=== PATIENT | male | born 1980 | race Caucasian/White ===

== ENCOUNTER 2018-12-24 00:47 | Emergency (ER) | payer MEDICAID, SELFPAY ==
[2018-12-24 00:48] VITALS: BP 150/92; PULSE 80; RESP 22; TEMP 36.7; O2SAT 100; BMI 33.4
--- NOTE | 2018-12-24 01:32 | ED.RN ---
PT SCREAMING AND YELLING. PT HYPERVENTILATING AND C/O CHEST PAIN. CALLED FOR EKG
--- NOTE | 2018-12-24 01:41 | EKG12_ITS ---
Test Reason : CP/ANXIETY Blood Pressure : / mmHG Vent. Rate : 087 BPM Atrial Rate : 087 BPM P-R Int : 132 ms QRS Dur : 098 ms QT Int : 392 ms P-R-T Axes : 060 050 044 degrees QTc Int : 471 ms Normal sinus rhythm Normal ECG Confirmed by JEFFERSON ALVARADO ([id number]), mapping editor ELICEO TORREZ ([id number] on 12/26/2018 4:28:40 PM Referred By: CINTHIA Confirmed By:JEFFERSON ALVARADO
[2018-12-24] MEDS: LORazepam 2 MG/ML Syringe 1 MG IM (02:08)
--- NOTE | 2018-12-24 03:36 | ED.VIS.GEN ---
History of Present Illness Chief Complaint: Anxiety Informant: Patient Narrative: Patient states he is having a panic attack. He has had these before. Tonight, he states that he tried methamphetamine, triggering another one. He is having palpitations, feeling very anxious, no chest pain or shortness of breath or other symptoms. He does not feel suicidal. - Past Medical History (1) Panic disorder Status: Chronic (2) Depression Status: Chronic Past Medical History - Allergies and Home Meds Allergies/Adverse Reactions: Allergies No Known Allergies Allergy (Verified 12/24/18 00:48) Primary Care Physician: Tristan Perdomo MD [Primary Care Provider] - Smoking Status: Current some day smoker Drugs: - - Methamphetamine Review of Systems General: Denies: Chills, Fever Eyes: Denies: Visual changes - bilaterally, Diplopia Cardiovascular: Reports: Palpitations, Heart racing. Denies: Chest pain Respiratory: Denies: Dyspnea, Cough Gastrointestinal: Denies: Abdominal pain, Nausea, Vomiting Musculoskeletal: Denies: Swelling, Extremity Pain Psych: Reports: Anxiety. Denies: Suicidal thoughts, Suicidal ideations Physical Exam Vital Signs/Narrative: Vital Signs Temp Pulse Resp BP Pulse Ox 12/24/18 00:48 98.1 F 80 22 H 150/92 H 100 Inital Vital Signs reviewed: Yes General: Well nourished, Well developed, No Acute Distress Head: Normocephalic, Atraumatic Eyes: Perrl, EOMI Neck: Supple, Nontender Cardiovascular: Regular rate, Regular rhythm, No murmurs Respiratory: No distress, CTA bilaterally, Chest nontender Abdomen: Soft, Nontender, Nondistended, Normal bowel sounds Skin: Normal color, No rash, No Trauma Neurological: Alert, Oriented x3, Cranial nerves II-XII grossly intact, Normal Strength, Normal Sensation Psychological: Agitated - And very anxious. Tearful at times. Diagnostic/Tx/Re-eval - Rhythm Strip Rhythm Strip: Sinus Rhythm Rate: 85 Ectopy: None - EKG Initial EKG Interpretation: Sinus Rhythm, No Acute Injury Pattern - Medical Decision Making Patient was treated with Ativan 1 mg IM. On reevaluation he feels much better. He was able to sleep comfortably, easily arousable. He is regretful about doing methamphetamine. Advised to abstain from it, especially with a history of panic disorder. He is agreeable. Discharged in stable improved condition. ED Disposition - Plan for ED Patient: Disposition: Home or Assisted Living Diagnosis: Panic attack, Methamphetamine abuse Instructions: ED Panic Attack Referrals: Tristan Perdomo MD [Primary Care Provider] - 3-5 Days if not improving
[2018-12-24 04:21] VITALS: PULSE 87; RESP 20; O2SAT 99
--- NOTE | 2018-12-24 04:22 | ED.RN ---
THIS NURSE REVIEWED D/C INSTRUCTIONS WITH PT. PT VERBALIZED UNDERSTANDING OF INSTRUCTIONS. PT DENIES FURTHER NEEDS OR QUESTIONS AT THIS TIME. PT AMBULATES FROM DEPARTMENT ON OWN WITHOUT ASSISTANCE FROM STAFF
== END 2018-12-24 04:23 | disposition home or self-care (01) ==
PROVIDERS: Emergency Provider Emergency Medicine; Family Provider Family Medicine; PCP Family Medicine
DX: F41.0 Panic disorder [episodic paroxysmal anxiety] (principal); F15.10 Other stimulant abuse, uncomplicated; F32.9 Major depressive disorder, single episode, unspecified; F17.200 Nicotine dependence, unspecified, uncomplicated; Z79.899 Other long term (current) drug therapy
CPT/HCPCS: 93005; 96372; 99284

== ENCOUNTER 2019-07-31 11:00 | Emergency (ER) | payer MEDICAID, SELFPAY ==
[2019-07-31 11:01] VITALS: BP 132/73; PULSE 86; RESP 22; TEMP 36.6; O2SAT 97; BMI 28.7
--- NOTE | 2019-07-31 11:22 | EKG12_ITS ---
Test Reason : CP Blood Pressure : / mmHG Vent. Rate : 080 BPM Atrial Rate : 080 BPM P-R Int : 148 ms QRS Dur : 098 ms QT Int : 380 ms P-R-T Axes : 030 048 032 degrees QTc Int : 438 ms Normal sinus rhythm Normal ECG Confirmed by VALERIA LANDRUM, LUIS ([id number]), image editor ARANZA HIGGINBOTHAM ([id number]) on 08/04/2019 10:28:52 AM Referred By: АЛЕКСАНДР/NEPTALI Confirmed By:LUIS SHAW MD
--- NOTE | 2019-07-31 11:23 | RAD_ITS ---
STUDY: X-RAY CHEST REASON FOR EXAM: Male, 39 years old. Palpitations. TECHNIQUE: Single AP portable view of the chest. COMPARISON: None. FINDINGS: EKG electrodes are seen. The lungs are clear and expanded. There is no demonstrated pleural abnormality. Normal size heart. Normal mediastinum and nika. Normal visualized pulmonary arteries. Normal visualized aortic arch and descending thoracic aorta. Normal visualized thoracic spine. Normal visualized ribs, clavicles, and shoulders. There is no demonstrated abnormality of the visualized soft tissue structures of the upper abdomen. RAD/Chest 1 View (Portable) IMPRESSION: Normal x-ray examination of the chest. Electronically Signed: Carlin Santos, at 11:43 EDT , Service support ,
[2019-07-31 11:29] LABS: Absolute Lymphocyte Count 1.27 X10^3/uL (0.83-4.51); Absolute Neutrophil Count 5.2 X10^3/uL (2.0-7.7); Basophil# 0.04 X10^3/uL; Basophil% 0.5 % (0-1); Eosinophil# 0.07 X10^3/uL; Eosinophils% 0.9 % (0-5); Hematocrit 45.1 % (40-54); Hemoglobin 14.9 g/dL (13.0-16.5); Lymphocyte # 1.27 X10^3/ul (4.0); Lymphocyte % 16.9 % (19-41); Mean Corpuscular Hgb 31.1 pg (27.0-32.0); Mean Corpuscular Volume 94.2 fL (80-94); Mean Platelet Vol. 9.2 fl (6.2-12.0); Monocyte# 0.86 X10^3/uL; Monocyte% 11.5 % (0-10); NRBC Flagged by Analyzer 0 % (0-5); Neutrophil # 5.23 X10^3/uL (2.7-7.7); Neutrophil % 69.8 % (47-70); Platelet Count 269 K/mm3 (150-450); RBC Distribution Width CV 12.4 % (11.6-14.6); RBC Distribution Width SD 43.3 fl (35.1-43.9); Red Blood Count 4.79 M/mm3 (4.6-6.2); White Blood Count 7.5 K/mm3 (4.4-11.0)
[2019-07-31 11:31] VITALS: O2SAT 99
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
[2019-07-31 11:53] LABS: Anion Gap 5 (5-15); BUN 16 mg/dL (7-18); BUN/Creat Ratio 14.4 RATIO (10-20); Calcium,Total 9.3 mg/dL (8.5-10.1); Chloride 106 mmol/L (98-107); Creatinine, Serum 1.11 mg/dL (0.70-1.30); EST Glomerular Filtration Rate 78 mL/min (>60); Est Glom Filt Rate - Afr Amer 94 mL/min (>60); Estimated Creatinine Clearance 90.43 ml/min; Glucose 75 mg/dL (74-106); Potassium 3.7 mmol/L (3.5-5.1); Sodium Level 141 mmol/L (136-145); Thyroid Stim Hormone (TSH) 4.03 uIU/mL (0.358-3.74)
--- NOTE | 2019-07-31 12:17 | ED.DEP ---
ED Disposition - Plan for ED Patient: Instructions: Palpitations Referrals: Tristan Perdomo MD [Primary Care Provider] - As soon as possible Additional Instructions: Your primary care physician. They can refer to your equipment maintenance superintendent as needed.
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
== END 2019-07-31 13:03 | disposition home or self-care (01) ==
LOC: ED 11:35
PROVIDERS: Emergency Provider Emergency Medicine; Family Provider Family Medicine; PCP Family Medicine
DX: R00.2 Palpitations (principal); F32.9 Major depressive disorder, single episode, unspecified; F41.9 Anxiety disorder, unspecified; Z79.899 Other long term (current) drug therapy; Z87.891 Personal history of nicotine dependence
CPT/HCPCS: 71045; 80048; 84443; 84484; 85025; 93005; 99284; A4216

== ENCOUNTER 2019-07-31 14:37 | Emergency (ER) | payer MEDICAID, SELFPAY ==
[2019-07-31 11:01] VITALS: BMI 28.7
[2019-07-31 14:38] VITALS: BP 116/76; PULSE 82; RESP 16; TEMP 36.4; O2SAT 98; BMI 29.5
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
--- NOTE | 2019-07-31 15:38 | CM.ED ---
Social Work Patient returning to ED, stating I am lightheaded, I am going to pass out. Dr. Cruz to see patient. No changes. Patient again reminded about [facility]. Patient walking into the ED and stating to be able to walk. Patient stating I might not go to the [facility]. This social science manager noting that it is patient choice on where patient goes but that patient is aware of resource for housing as patient is stating to be unable to return to patient fathers home. Patient voicing frustration but willing to leave. RN and Dr. Anthony hernandez. Alyssa Collins COMMISSARY AGENT, SALVAGE WORKER
== END 2019-07-31 15:40 | disposition home or self-care (01) ==
LOC: ED 15:26
PROVIDERS: Emergency Provider Emergency Medicine; Family Provider Family Medicine; PCP Family Medicine
DX: R00.2 Palpitations (principal); Z76.5 Malingerer [conscious simulation]; F32.9 Major depressive disorder, single episode, unspecified; F41.9 Anxiety disorder, unspecified; Z79.899 Other long term (current) drug therapy; Z87.891 Personal history of nicotine dependence
CPT/HCPCS: 71045; 80048; 84443; 84484; 85025; 93005; 99284; A4216

== ENCOUNTER 2020-04-01 16:06 | Emergency (ER) | payer SELFPAY ==
[2020-04-01 16:07] VITALS: BP 163/114; PULSE 114; RESP 18; TEMP 36.6; O2SAT 96; BMI 28.0
--- NOTE | 2020-04-01 16:17 | ED.RN ---
UPON ARRIVAL TO [facility] PT STATES I HAVE NEVER BEEN HERE. ASK PT SSN. NO RESULTS. TYPE IN BIRTHDAY. RETRIEVE NAME AND ADDRESS. PT AGREES IT IS HIM. PT ANGRY AND MAKING COMMENTS IN TRIAGE. PT STATES THIS [facility]UCKING HOSPITAL IS [facility]. WHEN ASKED WHY, PT STATES YOUR ALL FUCKING [facility] ABOUT THIS [facility]. ATTEMPTED TO REASSURE PT. PT THEN BEGINS MUTTERING TO THE ONEAL IN TRIAGE. AGGRESSIVELY NOT ANSWERING QUESTIONS. WHEN PT ASKED ABOUT THOUGHTS OF HARMING HIMSELF. PT STOPPED AND HESITATED BEFORE ANSWERING NO. SAME WITH QUESTION REGARDING HURTING OTHERS. PT REMAINS AGREESIVE THRUOUT TRIAGE PROCESS. SECURITY AWARE AND REMAIN IN SIGHT. PT TO ROOM 5. DISTRIBUTION FIELD ENGINEERMICHELLE SUMNER
[2020-04-01 16:22] VITALS: O2SAT 99
--- NOTE | 2020-04-01 16:24 | EKG12_ITS ---
Test Reason : CP Blood Pressure : / mmHG Vent. Rate : 093 BPM Atrial Rate : 093 BPM P-R Int : 142 ms QRS Dur : 096 ms QT Int : 376 ms P-R-T Axes : 048 018 034 degrees QTc Int : 467 ms Normal sinus rhythm Normal ECG Confirmed by JEFFERSON ALVARADO ([id number]), special service officer BECKY MILLER ([id number]) on 04/09/2020 8:15:27 AM Referred By: CARROLL Confirmed By:JEFFERSON ALVARADO
--- NOTE | 2020-04-01 16:38 | NURSING ---
NO OLD EKGS
--- NOTE | 2020-04-01 16:38 | ED.VIS.GEN ---
History of Present Illness Chief Complaint: Shortness of Breath Informant: Patient Onset: Days Current Severity: Mild Maximum Severity: Mild Narrative: Patient presents with shortness of breath for the past couple of days. He states that he needs a scan around his heart. He describes having what sounds and an echocardiogram as a child for a possible hole in his heart. He is requesting this test to be done again. He reports increased shortness of breath with exertion. He will get some chest pressure with exertion that improves with rest. When I explained to the patient that we are not able to get a echocardiogram in the emergency room and he would need to follow-up with cardiology, he stated that if he does not get this figured out he might go kill himself. At this time he denies any prior attempts to hurt himself. He has no specific plan. - Past Medical History (1) Hypothyroid Status: Chronic (2) Panic disorder Status: Chronic (3) Depression Status: Chronic Past Medical History - Allergies and Home Meds Allergies/Adverse Reactions: Allergies No Known Allergies Allergy (Verified 04/01/20 16:09) Primary Care Physician: Tristan Perdomo MD [Primary Care Provider] - Prior records reviewed: Yes Smoking Status: Never smoker Review of Systems General: Denies: Chills, Fever Eyes: Denies: Visual changes - bilaterally ENT: Denies: Bilateral ear pain Cardiovascular: Reports: Chest pain. Denies: Palpitations Respiratory: Reports: Dyspnea. Denies: Cough, Sputum Gastrointestinal: Denies: Abdominal pain, Nausea, Vomiting, Diarrhea Genitourinary: Denies: Dysuria Musculoskeletal: Denies: Extremity Pain Skin: Denies: Rash Neurological: Denies: Headache Hematologic: Denies: Easy bruising, Easy bleeding Allergy: Denies: Uticaria Physical Exam Vital Signs/Narrative: Vital Signs Temp Pulse Resp BP Pulse Ox 04/01/20 16:07 97.9 F 114 H 18 163/114 H 96 Inital Vital Signs reviewed: Yes General: Well nourished, Well developed Head: Normocephalic ENT: Moist mucous membranes Neck: Supple Cardiovascular: Regular rate, Regular rhythm, - - Mild peristernal tenderness to palpation. No crepitus. Respiratory: No distress, CTA bilaterally Abdomen: Soft, Nontender Skin: Normal color Neurological: Alert, Oriented x3 Psychological: Normal affect Diagnostic/Tx/Re-eval Impressions Chest X-Ray 04/01/20 16:53 IMPRESSION: Normal x-ray examination of the chest. Electronically Signed: Tristan Harden MD at 17:13 EDT Tel , Service support , 04/01/20 16:53 Chest 1 View (Portable) [RAD] Stat Laboratory Results 04/01/20 04/01/20 04/01/20 16:40 16:40 16:40 WBC 7.9 RBC 4.50 L Hgb 13.6 Hct 41.6 MCV 92.4 MCH 30.2 MCHC 32.7 RDW Std Deviation 42.5 RDW Coeff of Anastacio 12.5 Plt Count 249 MPV 10.3 Immature Gran % (Auto) 0.400 Neut % (Auto) 79.1 H Lymph % (Auto) 12.1 L [place] % (Auto) 7.3 Eos % (Auto) 0.8 Baso % (Auto) 0.3 Absolute Neuts (auto) 6.3 Absolute Lymphs (auto) 0.96 Nucleated RBC % 0 Sodium 139 Potassium 3.3 L Chloride 104 Carbon Dioxide 27.0 Anion Gap 8 BUN 17 Creatinine 1.10 Estim Creat Clear Calc 88.38 Est GFR (MDRD) Af Amer 95 Est GFR (MDRD) Non-Af 78 BUN/Creatinine Ratio 15.5 Glucose 101 Calcium 9.1 Total Bilirubin 0.90 Direct Bilirubin 0.25 AST 24 ALT 50 Alkaline Phosphatase 68 Troponin I < 0.015 Total Protein 7.3 Albumin 4.0 Globulin 3.3 Urine Opiates Screen Urine Methadone Screen Ur Barbiturates Screen Ur Phencyclidine Scrn Ur Amphetamines Screen U Methamphetamin-MDMA U Benzodiazepines Scrn Urine Cocaine Screen U Cannabinoids Screen Ur Drug Screen Comment Ethyl Alcohol < 3.0 04/01/20 16:45 WBC RBC Hgb Hct MCV MCH MCHC RDW Std Deviation RDW Coeff of Anastacio Plt Count MPV Immature Gran % (Auto) Neut % (Auto) Lymph % (Auto) Independence % (Auto) Eos % (Auto) Baso % (Auto) Absolute Neuts (auto) Absolute Lymphs (auto) Nucleated RBC % Sodium Potassium Chloride Carbon Dioxide Anion Gap BUN Creatinine Estim Creat Clear Calc Est GFR (MDRD) Af Amer Est GFR (MDRD) Non-Af BUN/Creatinine Ratio Glucose Calcium Total Bilirubin Direct Bilirubin AST ALT Alkaline Phosphatase Troponin I Total Protein Albumin Globulin Urine Opiates Screen NEGATIVE Urine Methadone Screen NEGATIVE Ur Barbiturates Screen NEGATIVE Ur Phencyclidine Scrn NEGATIVE Ur Amphetamines Screen NEGATIVE U Methamphetamin-MDMA NEGATIVE U Benzodiazepines Scrn NEGATIVE Urine Cocaine Screen NEGATIVE U Cannabinoids Screen NEGATIVE Ur Drug Screen Comment Ethyl Alcohol - EKG Initial EKG Interpretation: Sinus Rhythm - Sinus at 93 with no acute ischemia. - Medical Decision Making Patient was given p.o. potassium replacement. On repeat evaluation he is resting comfortably. We discussed his test results and need for outpatient follow-up in order to obtain an echocardiogram as it is not available or emergent at this time. Patient states that he continues to feel suicidal. He denies a specific plan but states multiple times that he will kill himself if he leaves here and is not sent somewhere to get help. Amalia from the counseling center spoke with the patient on the phone. He would not contract for safety with her. She is working on placement at this time. I filled out a pink slip. ED Disposition - Plan for ED Patient: Disposition: Psychiatric Hospital or Unit Diagnosis: Suicidal ideation, Atypical chest pain Referrals: Tristan Perdomo MD [Primary Care Provider] -
--- NOTE | 2020-04-01 16:53 | RAD_ITS ---
STUDY: X-RAY CHEST REASON FOR EXAM: Male, 39 years old. SOB FOR SEVERAL DAYS TECHNIQUE: Single frontal view of the chest. COMPARISON: 07/31/2019 FINDINGS: The lungs are clear and expanded. There is no demonstrated pleural abnormality. Normal size heart. Normal mediastinum and nika. Normal visualized pulmonary arteries. Normal visualized aortic arch and descending thoracic aorta. Normal visualized thoracic spine. Normal visualized ribs, clavicles, and shoulders. There is no demonstrated abnormality of the visualized soft tissue structures of the upper abdomen. RAD/Chest 1 View (Portable) IMPRESSION: Normal x-ray examination of the chest. Electronically Signed: Tristan Harden MD at 17:13 EDT Tel , Service support ,
[2020-04-01 17:05] LABS: Absolute Lymphocyte Count 0.96 X10^3/uL (0.83-4.51); Absolute Neutrophil Count 6.3 X10^3/uL (2.0-7.7); Basophil# 0.02 X10^3/uL; Basophil% 0.3 % (0-1); Eosinophil# 0.06 X10^3/uL; Eosinophils% 0.8 % (0-5); Hematocrit 41.6 % (40-54); Hemoglobin 13.6 g/dL (13.0-16.5); Lymphocyte # 0.96 X10^3/ul (4.0); Lymphocyte % 12.1 % (19-41); Mean Corp Hgb Conc 32.7 g/dL (32-36); Mean Corpuscular Hgb 30.2 pg (27.0-32.0); Mean Corpuscular Volume 92.4 fL (80-94); Mean Platelet Vol. 10.3 fl (6.2-12.0); Monocyte# 0.58 X10^3/uL; Monocyte% 7.3 % (0-10); NRBC Flagged by Analyzer 0 % (0-5); Neutrophil # 6.29 X10^3/uL (2.7-7.7); Neutrophil % 79.1 % (47-70); Platelet Count 249 K/mm3 (150-450); RBC Distribution Width CV 12.5 % (11.6-14.6); RBC Distribution Width SD 42.5 fl (35.1-43.9); White Blood Count 7.9 K/mm3 (4.4-11.0)
[2020-04-01 17:28] LABS: AST(SGOT) 24 U/L (15-37); Alanine Aminotransfer ALT/SGPT 50 U/L (16-61); Alkaline Phosphatase 68 U/L (45-117); Anion Gap 8 (5-15); BUN 17 mg/dL (7-18); BUN/Creat Ratio 15.5 RATIO (10-20); Bilirubin, Direct 0.25 mg/dL (0.00-0.30); Calcium,Total 9.1 mg/dL (8.5-10.1); Chloride 104 mmol/L (98-107); EST Glomerular Filtration Rate 78 mL/min (>60); Est Glom Filt Rate - Afr Amer 95 mL/min (>60); Estimated Creatinine Clearance 88.38 ml/min; Globulin 3.3 g/dL (2.2-4.2); Glucose 101 mg/dL (74-106); Potassium 3.3 mmol/L (3.5-5.1); Protein, Total 7.3 g/dL (6.4-8.2); Sodium Level 139 mmol/L (136-145)
[2020-04-01 17:38] LABS: Alcohol, Blood (Medical)-Serum < 3.0 mg/dL
[2020-04-01 17:39] LABS: Amphetamine Urine VISTA NEGATIVE (<1000 ng/mL); Barbiturate Urine VISTA NEGATIVE (< 200 ng/mL); Benzodiazepine Urine VISTA NEGATIVE (< 200 ng/mL); Cocaine Urine VISTA NEGATIVE (< 300 ng/mL); Ecstacy Urine VISTA NEGATIVE (< 500 ng/mL); Methadone Urine VISTA NEGATIVE (< 300 ng/mL); PCP Urine VISTA NEGATIVE (< 25 ng/mL); THC Urine VISTA NEGATIVE (< 50 ng/mL); Vista UDS pH Range 6
[2020-04-01 18:06] VITALS: BP 161/97; PULSE 91; RESP 19; O2SAT 99
--- NOTE | 2020-04-01 18:25 | ED.RN ---
PT C/O CHEST PAIN FROM THE POTASSIUM PILLS THAT ARE SWELLING UP AND GETTING BIGGER. DR TIWARI NOTIFIED. PER DR TIWARI, GIVEN SOME WATER AND CRACKERS TO HELP WITH PAIN FROM PILLS
--- NOTE | 2020-04-01 18:54 | ED.RN ---
CALLED [facility] TO SEE THIS PT PER REQUEST OF DR TIWARI, REPORT FAXED TO THEIR OFFICE
[2020-04-01 20:22] VITALS: RESP 16
[2020-04-01 22:06] VITALS: BP 130/91; PULSE 71; O2SAT 98
--- NOTE | 2020-04-01 22:55 | ED.RN ---
Cong from [facility] calls requesting a TSH level, EKG and medlist be faxed.
[2020-04-01 23:24] VITALS: RESP 16
[2020-04-02] VITALS (12 sets, daily range): BP systolic 108–136; BP diastolic 72–95; PULSE 65–89; RESP 14–16; O2SAT 96–99
--- NOTE | 2020-04-02 09:04 | NURSING ---
CALLED [facility] FOR AN UPDATE ON PATIENT. [facility] IS WITH A PATIENT AND WILL CALL US WHEN FINISHED.
--- NOTE | 2020-04-02 09:39 | NURSING ---
PER ARNIE ALAN, PATIENT WILL BE ABLE TO GO TO [facility] TODAY. THEY ARE WAITING ON DISCHARGES
--- NOTE | 2020-04-02 14:26 | NURSING ---
natalie, [facility], called. patient still has no bed
[2020-04-02] MEDS: Citalopram 40 MG TABLET PO (14:46)
[2020-04-02] MEDS: busPIRone 15 MG TABLET PO (14:46)
[2020-04-02] MEDS: Levothyroxine 112 MCG Tablet PO (14:46)
[2020-04-02] MEDS: Lisinopril 20 MG Tablet PO (14:46)
[2020-04-02] MEDS: Atenolol 50 MG Tablet PO (14:47)
--- NOTE | 2020-04-02 16:21 | NURSING ---
PATIENT ACCEPTED AT [facility]. CALLED [facility], TALKED TO [facility], FOR THEM TO ARRANGE TRANSPORT
== END 2020-04-02 17:10 ==
PROVIDERS: Emergency Medicine; Emergency Provider Emergency Medicine; PCP Family Medicine
DX: R07.89 Other chest pain (principal); F32.9 Major depressive disorder, single episode, unspecified; R45.851 Suicidal ideations; F41.0 Panic disorder [episodic paroxysmal anxiety]; E03.9 Hypothyroidism, unspecified; Z79.899 Other long term (current) drug therapy
CPT/HCPCS: 71045; 80048; 80076; 80307; 80320; 84443; 84484; 85025; 93005; 99285; G0480

== ENCOUNTER 2020-05-17 21:28 | Emergency (ER) | payer SELFPAY ==
[2020-05-17 21:28] VITALS: BP 113/97; PULSE 123; RESP 24; TEMP 36.7; O2SAT 94; BMI 29.5
--- NOTE | 2020-05-17 21:42 | EKG12_ITS ---
Test Reason : GEN ILL Blood Pressure : / mmHG Vent. Rate : 106 BPM Atrial Rate : 106 BPM P-R Int : 152 ms QRS Dur : 098 ms QT Int : 338 ms P-R-T Axes : 035 037 006 degrees QTc Int : 448 ms Sinus tachycardia Otherwise normal ECG Confirmed by RAPHAEL LANDRUM, JOSÉ MIGUEL ([id number]), newspaper photo editor BECKY MILLER ([id number]) on 05/21/2020 10:45:01 AM Referred By: LUCIAN Confirmed By:JOSÉ MIGUEL LIM MD
--- NOTE | 2020-05-17 21:55 | RAD_ITS ---
HISTORY: CHEST PAIN. PATIENT STATES HX OF ENLARGED HEART. ADDITIONAL HISTORY: None provided. COMPARISON: 04/01/2020 EXAMINATION/TECHNIQUE: XR Chest 2 Views Number of images including paperwork: 2 FINDINGS: LUNGS AND PLEURA: Low lung volumes. No consolidation, mass or pleural effusion. CARDIAC SILHOUETTE: Unremarkable. MEDIASTINUM AND TIMOTHY: Unremarkable. UPPER ABDOMEN: Unremarkable. SKELETON AND SOFT TISSUES: No acute findings. OTHER DEVICES AND HARDWARE: None. RAD/Chest PA and Lateral IMPRESSION: Long line was without definite acute abnormality. at [id number] Reported and signed by: Brunilda Morrell MD Electronically Signed: Brunilda Morrell MD at 22:15 EDT Tel , Service support ,
--- NOTE | 2020-05-17 22:18 | ED.VIS.GEN ---
History of Present Illness Chief Complaint: General Illness Detail of Chief Complaint: Cardiomegaly, vague chest pain Informant: Patient Onset: Month(s) - Approximately 3 weeks Context: Sudden Onset Timing: Continuous Quality: Anterior chest discomfort Location: Anterior chest Current Severity: Mild Maximum Severity: Moderate Worsened by: Nothing Relieved by: Nothing Associated Symptoms: No associated symptoms or radiation Narrative: Patient is a 39-year-old male who was seen approximate 3 months ago and told his heart was enlarged. He did not follow-up. He does have history of depression anxiety. He also has history of hypercholesterolemia. There is family history of heart problems. He cannot be more specific. He denies history of GERD, peptic ulcer disease, black or maroon stool. He denies infectious or URI symptoms. He denies history of trauma. He denies intolerance to greasy or fried foods. He denies leg pain, swelling discoloration. He denies history of VTE. Prior similar symptoms: Yes Recent Illness/Hospitalization: No - Past Medical History (1) Depression Status: Chronic (2) Hypothyroid Status: Chronic (3) Panic disorder Status: Chronic Past Medical History - Allergies and Home Meds Allergies/Adverse Reactions: Allergies No Known Allergies Allergy (Verified 05/17/20 21:31) Primary Care Physician: Tristan Perdomo MD [Primary Care Provider] - Prior records reviewed: Yes Lives: With Family - He lives with his father. Smoking Status: Never smoker Alcohol: None Drugs: None Review of Systems General: Denies: Chills, Fever, Malaise, Sweats Eyes: Denies: Visual changes - bilaterally, Blurred Vision - bilaterally ENT: Denies: Bilateral ear pain, Rhinorrhea, Sore throat Cardiovascular: Reports: Chest pain. Denies: Palpitations, Heart racing Respiratory: Denies: Dyspnea, Cough, Dyspnea on exertion Gastrointestinal: Denies: Abdominal pain, Nausea, Vomiting, Diarrhea, Melena, Hematochezia Genitourinary: Denies: Dysuria, Hematuria, Frequency Musculoskeletal: Denies: Myalgias, Arthralgias, Neck pain, Back pain, Swelling, Extremity Pain Skin: Denies: Rash, Wounds Neurological: Denies: Headache, Weakness, Numbness Psych: Reports: Anxiety. Denies: Suicidal thoughts Hematologic: Denies: Easy bruising, Easy bleeding Physical Exam Vital Signs/Narrative: Vital Signs Temp Pulse Resp BP Pulse Ox 05/17/20 21:28 98.1 F 123 H 24 H 113/97 H 94 Inital Vital Signs reviewed: Yes General: Well nourished, Well developed, No Acute Distress Head: Normocephalic, Atraumatic Eyes: Perrl, EOMI ENT: Moist mucous membranes, No rhinorrhea Neck: Supple, Nontender Cardiovascular: Regular rate, Regular rhythm, No murmurs, Normal S1, Normal S2 Respiratory: No distress, CTA bilaterally, Chest nontender Abdomen: Soft, Nontender, Nondistended, Normal bowel sounds, No masses Back: Nontender, Normal Inspection. Negative for: CVA tenderness Extremities: Nontender, No edema, - - There is no asymmetry, swelling, discoloration, leg vein distention, palpable cords or tenderness along the distribution of the deep venous system. Skin: Normal color, No rash, No Trauma. Negative for: Cyanosis, Diaphoresis, Jaundice Neurological: Alert, Oriented x3, Cranial nerves II-XII grossly intact, Normal Strength, Normal Sensation Psychological: Depressed Diagnostic/Tx/Re-eval Chest X-Ray - ED: 2 View, Read by ED Physician, Normal, Heart, Lungs, Mediastinum, Bony Structures, - - Recent x-ray April 01, 2020. There is no evidence of cardiomegaly. The film performed today is overpenetrated in comparison. Impressions Chest X-Ray 05/17/20 21:55 IMPRESSION: Long line was without definite acute abnormality. at 2215 Reported and signed by: Brunilda Morrell MD Electronically Signed: Brunilda Morrell MD at 22:15 EDT Tel , Service support , 05/17/20 21:55 Chest PA and Lateral [RAD] Stat Laboratory Results 05/17/20 05/17/20 05/17/20 22:20 22:20 22:40 WBC Cancelled 13.8 H Corrected WBC Cancelled RBC Cancelled 4.18 L Hgb Cancelled 12.7 L Hct Cancelled 38.0 L MCV Cancelled 90.9 MCH Cancelled 30.4 MCHC Cancelled 33.4 RDW Std Deviation Cancelled 38.8 RDW Coeff of Anastacio Cancelled 11.5 L Plt Count Cancelled 210 MPV Cancelled 9.5 Immature Gran % (Auto) Cancelled 0.500 Neut % (Auto) Cancelled 85.9 H Lymph % (Auto) Cancelled 6.9 L [place] % (Auto) Cancelled 6.1 Eos % (Auto) Cancelled 0.4 Baso % (Auto) Cancelled 0.2 Absolute Neuts (auto) Cancelled 11.9 H Absolute Lymphs (auto) Cancelled 0.95 Total Counted Cancelled Neutrophils % (Manual) Cancelled Band Neutrophils % Cancelled Lymphocytes % (Manual) Cancelled Monocytes % (Manual) Cancelled Eosinophils % (Manual) Cancelled Basophils % (Manual) Cancelled Metamyelocytes % Cancelled Myelocytes % Cancelled Promyelocytes % Cancelled Blast Cells % Cancelled Plasma Cell % (Manual) Cancelled Other Cells % Cancelled Nucleated RBC % Cancelled 0 Nucleated RBCs/100 WBC Cancelled Differential Comment Cancelled Diff Path Review Cancelled Hypersegmented Neuts Cancelled Atypical Lymphocytes Cancelled Reactive Lymphocytes Cancelled Smudge Cells Cancelled Toxic Granulation Cancelled Toxic Vacuolation Cancelled Dohle Bodies Cancelled Reece Rods Cancelled Platelet Estimate Cancelled Plt Morphology Comment Cancelled RBC Morphology Cancelled Polychromasia Cancelled Hypochromasia Cancelled Poikilocytosis Cancelled Basophilic Stippling Cancelled Anisocytosis Cancelled Microcytosis Cancelled Macrocytosis Cancelled Spherocytes Cancelled Sickle Cells Cancelled Target Cells Cancelled Tear Drop Cells Cancelled Ovalocytes Cancelled Stomatocytes Cancelled [place] Bodies Cancelled Jorgito Cells Cancelled Bite Cells Cancelled Crenated Cell Cancelled Acanthocytes (Spur) Cancelled Rouleaux Cancelled Schistocytes Cancelled Sodium 135 L Potassium 4.5 Chloride 108 H Carbon Dioxide 21.0 Anion Gap 6 BUN 34 H Creatinine 1.91 H Estim Creat Clear Calc 50.90 Est GFR (MDRD) Af Amer 50 L Est GFR (MDRD) Non-Af 41 L BUN/Creatinine Ratio 17.8 Glucose 100 Calcium 9.8 Troponin I 0.025 Patient's creatinine has risen from 0.9-1.9. This would indicate acute kidney injury. Will have patient follow-up with his primary care physician for repeat blood work in 3 to 5 days. He was informed that there is no evidence of heart attack. Furthermore he was informed that his heart is not enlarged. - Medical Decision Making Diagnosis includes noncardiac chest pain, cardiac chest pain. GI etiology anxiety reaction. Outpatient follow-up for elevated creatinine ED Disposition - Plan for ED Patient: Disposition: Home or Assisted Living Diagnosis: Chest pain at rest, Acute kidney injury Instructions: ED Chest Pain NonCardiac, ED Insufficiency Renal Referrals: Tristan Perdomo MD [Primary Care Provider] - 5-7 Days Additional Instructions: Need to follow-up with Dr. Perdomo for repeat blood work to assess your kidney function. You should not take ibuprofen or Aleve.
[2020-05-17 22:45] LABS: Anion Gap 6 (5-15); BUN 34 mg/dL (7-18); BUN/Creat Ratio 17.8 RATIO (10-20); Calcium,Total 9.8 mg/dL (8.5-10.1); Chloride 108 mmol/L (98-107); Creatinine, Serum 1.91 mg/dL (0.70-1.30); EST Glomerular Filtration Rate 41 mL/min (>60); Est Glom Filt Rate - Afr Amer 50 mL/min (>60); Glucose 100 mg/dL (74-106); Potassium 4.5 mmol/L (3.5-5.1); Sodium Level 135 mmol/L (136-145)
[2020-05-17 22:46] LABS: Absolute Lymphocyte Count 0.95 X10^3/uL (0.83-4.51); Absolute Neutrophil Count 11.9 X10^3/uL (2.0-7.7); Basophil# 0.03 X10^3/uL; Basophil% 0.2 % (0-1); Eosinophil# 0.05 X10^3/uL; Eosinophils% 0.4 % (0-5); Hemoglobin 12.7 g/dL (13.0-16.5); Lymphocyte # 0.95 X10^3/ul (4.0); Lymphocyte % 6.9 % (19-41); Mean Corp Hgb Conc 33.4 g/dL (32-36); Mean Corpuscular Hgb 30.4 pg (27.0-32.0); Mean Corpuscular Volume 90.9 fL (80-94); Mean Platelet Vol. 9.5 fl (6.2-12.0); Monocyte# 0.85 X10^3/uL; Monocyte% 6.1 % (0-10); NRBC Flagged by Analyzer 0 % (0-5); Neutrophil # 11.89 X10^3/uL (2.7-7.7); Neutrophil % 85.9 % (47-70); Platelet Count 210 K/mm3 (150-450); RBC Distribution Width CV 11.5 % (11.6-14.6); RBC Distribution Width SD 38.8 fl (35.1-43.9); Red Blood Count 4.18 M/mm3 (4.6-6.2); White Blood Count 13.8 K/mm3 (4.4-11.0)
[2020-05-17 23:21] VITALS: PULSE 108; RESP 16; O2SAT 96
== END 2020-05-17 23:23 | disposition home or self-care (01) ==
PROVIDERS: Emergency Provider Emergency Medicine; PCP Family Medicine
DX: R07.9 Chest pain, unspecified (principal); N17.9 Acute kidney failure, unspecified; E03.9 Hypothyroidism, unspecified; E78.00 Pure hypercholesterolemia, unspecified; F41.0 Panic disorder [episodic paroxysmal anxiety]; F32.9 Major depressive disorder, single episode, unspecified; F41.9 Anxiety disorder, unspecified; Z79.899 Other long term (current) drug therapy
CPT/HCPCS: 71046; 80048; 84484; 85025; 93005; 99285; A4216

== ENCOUNTER 2020-05-19 13:58 | Inpatient (IN) | payer SELFPAY ==
[2020-05-19] VITALS (12 sets, daily range): BP systolic 87–125; BP diastolic 50–76; PULSE 69–91; RESP 14–18; TEMP 36.7–37.1; O2SAT 96–99; BMI 31.1
--- NOTE | 2020-05-19 14:09 | ED.RN ---
WHEN ASKED PT IF HE WAS HAVING THOUGHTS OF HARMING HIMSELF, HE REPLIED I DON'T KNOW, ATTEMPTED TO ASSESS FURTHER, PT KEPT REPLYING I DON'T KNOW. MADE AWARE.
--- NOTE | 2020-05-19 14:19 | CT_ITS ---
STUDY: CT BRAIN WITHOUT CONTRAST REASON FOR EXAM: Male, 39 years old. POSSIBLE SEIZURE, FOUND IN A PARK TODAY BY EMS RADIATION DOSAGE (If Supplied By Facility): CTDIvol = ( 44.99 ) mGy, DLP = ( 796.11 ) mGycm TECHNIQUE: Transaxial CT imaging of the brain was performed without administration of intravenous contrast material. Individualized dose optimization techniques were used for this CT. COMPARISON: No relevant priors. FINDINGS: Normal soft tissue structures. Normal calvarium. Normal size ventricles and extra-axial spaces for the patient''s age. Normal white matter tracts of the cerebral hemispheres. Normal basal ganglia and thalami. Normal brainstem. Normal cerebellum. There is no intracranial hemorrhage. There are no findings of an acute ischemic infarction. Normal visualized paranasal sinuses. CT/Brain/Head without Contrast IMPRESSION: No acute intracranial hemorrhage or mass effect. Electronically Signed: Ashu Everett MD ([place]) at 15:07 EDT , Service support ,
--- NOTE | 2020-05-19 14:19 | EKG12_ITS ---
Test Reason : SEIZURE Blood Pressure : / mmHG Vent. Rate : 081 BPM Atrial Rate : 081 BPM P-R Int : 156 ms QRS Dur : 098 ms QT Int : 418 ms P-R-T Axes : 028 038 032 degrees QTc Int : 485 ms Normal sinus rhythm Prolonged QT Abnormal ECG Confirmed by VALERIA LANDRUM, LUIS ([id number]), photography editor BECKY MILLER ([id number]) on 05/20/2020 9:41:37 AM Referred By: Confirmed By:LUIS SHAW MD
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
[2020-05-19] MEDS: 0.9% Normal Saline 1,000 ML 150 ML IV (14:47)
[2020-05-19 15:02] LABS: ALB/GLOB Ratio 1.5 RATIO (0.9-2.4); AST(SGOT) 40 U/L (15-37); Alanine Aminotransfer ALT/SGPT 43 U/L (16-61); Albumin, Serum 4.7 g/dL (3.2-5.0); Alkaline Phosphatase 83 U/L (45-117); Anion Gap 8 (5-15); BUN 35 mg/dL (7-18); BUN/Creat Ratio 22.6 RATIO (10-20); Calcium,Total 9.3 mg/dL (8.5-10.1); Chloride 103 mmol/L (98-107); Creatinine, Serum 1.55 mg/dL (0.70-1.30); EST Glomerular Filtration Rate 53 mL/min (>60); Est Glom Filt Rate - Afr Amer 64 mL/min (>60); Estimated Creatinine Clearance 62.72 ml/min; Globulin 3.2 g/dL (2.2-4.2); Glucose 102 mg/dL (74-106); Potassium 3.8 mmol/L (3.5-5.1); Protein, Total 7.9 g/dL (6.4-8.2); Sodium Level 135 mmol/L (136-145)
[2020-05-19 15:03] LABS: Absolute Lymphocyte Count 0.88 X10^3/uL (0.83-4.51); Basophil# 0.03 X10^3/uL; Basophil% 0.2 % (0-1); Eosinophil# 0.02 X10^3/uL; Eosinophils% 0.1 % (0-5); Hematocrit 37.8 % (40-54); Hemoglobin 12.6 g/dL (13.0-16.5); Lymphocyte # 0.88 X10^3/ul (4.0); Lymphocyte % 5.9 % (19-41); Mean Corp Hgb Conc 33.3 g/dL (32-36); Mean Corpuscular Hgb 30.3 pg (27.0-32.0); Mean Corpuscular Volume 90.9 fL (80-94); Monocyte# 0.77 X10^3/uL; Monocyte% 5.2 % (0-10); NRBC Flagged by Analyzer 0 % (0-5); Neutrophil # 13.01 X10^3/uL (2.7-7.7); Neutrophil % 88.1 % (47-70); Platelet Count 235 K/mm3 (150-450); RBC Distribution Width CV 11.8 % (11.6-14.6); RBC Distribution Width SD 39.1 fl (35.1-43.9); Red Blood Count 4.16 M/mm3 (4.6-6.2); White Blood Count 14.8 K/mm3 (4.4-11.0)
[2020-05-19 15:11] LABS: Alcohol, Blood (Medical)-Serum < 3.0 mg/dL
[2020-05-19 15:46] LABS: Amphetamine Urine VISTA NEGATIVE (<1000 ng/mL); Barbiturate Urine VISTA NEGATIVE (< 200 ng/mL); Benzodiazepine Urine VISTA NEGATIVE (< 200 ng/mL); Cocaine Urine VISTA NEGATIVE (< 300 ng/mL); Ecstacy Urine VISTA NEGATIVE (< 500 ng/mL); Methadone Urine VISTA NEGATIVE (< 300 ng/mL); PCP Urine VISTA NEGATIVE (< 25 ng/mL); THC Urine VISTA NEGATIVE (< 50 ng/mL); Vista UDS pH Range 6
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
--- NOTE | 2020-05-19 17:39 | TELEMED_ITS ---
[facility] Telemed has confirmed receipt of a request for visit. This document confirms receipt of the order initiating the consult. To find the results of the consultation, please view the patient's reports for the scanned Telemed Consult.
[2020-05-19] MEDS: 0.9% Normal Saline 1,000 ML 125 ML IV (17:59)
[2020-05-19 18:08] LABS: International Normalized Ratio 1.1; Prothrombin Time (Protime)PT. 13.7 SECONDS (11.7-14.9)
[2020-05-19 18:21] LABS: Thyroid Stim Hormone (TSH) 1.25 uIU/mL (0.358-3.74)
--- NOTE | 2020-05-19 22:16 | NURSING ---
Dr. Swift paged regarding patients vital signs.
--- NOTE | 2020-05-19 22:18 | PCM.PN.BLA ---
Progress Note Patient is here for lithium toxicity. Patient has IRLANDA. Blood pressure 87/54. Map is 65. Patient is on saline maintenance infusion 125 mL's per hour. Will give patient normal saline bolus of 1000 mL going at 500 MLS per hour. STROKE Vital Signs/Narrative: Vital Signs Temp Pulse Resp BP Pulse Ox 05/19/20 22:07 98.3 F 73 16 87/54 L 98 05/19/20 19:00 74
--- NOTE | 2020-05-19 22:18 | NURSING ---
Dr. Swift returned paged and states to give HS meds as ordered and states that he will enter an order for 1,000ml NS bolus.
[2020-05-19] MEDS: 0.9% Normal Saline 1,000 ML 500 ML IV (22:25)
[2020-05-19] MEDS: Atorvastatin Calcium 20 MG Tablet PO (22:25)
[2020-05-20] VITALS (10 sets, daily range): BP systolic 93–109; BP diastolic 40–62; PULSE 66–81; RESP 14–18; TEMP 36.8–37.1; O2SAT 96–97
[2020-05-20] MEDS: 0.9% Normal Saline 1,000 ML 125 ML IV (04:02)
[2020-05-20 05:23] LABS: Absolute Lymphocyte Count 1.96 X10^3/uL (0.83-4.51); Absolute Neutrophil Count 7.5 X10^3/uL (2.0-7.7); Basophil# 0.02 X10^3/uL; Basophil% 0.2 % (0-1); Eosinophil# 0.23 X10^3/uL; Eosinophils% 2.1 % (0-5); Hematocrit 32.2 % (40-54); Hemoglobin 10.6 g/dL (13.0-16.5); Lymphocyte # 1.96 X10^3/ul (4.0); Lymphocyte % 17.7 % (19-41); Mean Corp Hgb Conc 32.9 g/dL (32-36); Mean Corpuscular Hgb 30.5 pg (27.0-32.0); Mean Corpuscular Volume 92.5 fL (80-94); Monocyte% 11.7 % (0-10); NRBC Flagged by Analyzer 0 % (0-5); Neutrophil # 7.51 X10^3/uL (2.7-7.7); Neutrophil % 67.8 % (47-70); Platelet Count 181 K/mm3 (150-450); RBC Distribution Width SD 40.6 fl (35.1-43.9); Red Blood Count 3.48 M/mm3 (4.6-6.2); White Blood Count 11.1 K/mm3 (4.4-11.0)
[2020-05-20 05:49] LABS: ALB/GLOB Ratio 1.2 RATIO (0.9-2.4); AST(SGOT) 26 U/L (15-37); Alanine Aminotransfer ALT/SGPT 34 U/L (16-61); Albumin, Serum 3.2 g/dL (3.2-5.0); Alkaline Phosphatase 65 U/L (45-117); Anion Gap 5 (5-15); BUN 31 mg/dL (7-18); BUN/Creat Ratio 25.2 RATIO (10-20); Calcium,Total 7.9 mg/dL (8.5-10.1); Chloride 111 mmol/L (98-107); Creatinine, Serum 1.23 mg/dL (0.70-1.30); EST Glomerular Filtration Rate 69 mL/min (>60); Est Glom Filt Rate - Afr Amer 83 mL/min (>60); Estimated Creatinine Clearance 79.03 ml/min; Globulin 2.7 g/dL (2.2-4.2); Glucose 113 mg/dL (74-106); Potassium 3.9 mmol/L (3.5-5.1); Protein, Total 5.9 g/dL (6.4-8.2); Sodium Level 140 mmol/L (136-145)
[2020-05-20] MEDS: Levothyroxine 112 MCG Tablet PO (05:49)
--- NOTE | 2020-05-20 05:55 | EKG12_ITS ---
Test Reason : AM EKG Blood Pressure : / mmHG Vent. Rate : 069 BPM Atrial Rate : 069 BPM P-R Int : 178 ms QRS Dur : 104 ms QT Int : 434 ms P-R-T Axes : 031 019 029 degrees QTc Int : 465 ms Normal sinus rhythm Normal ECG When compared with ECG of 19-MAY-2020 14:45, MANUAL COMPARISON REQUIRED, DATA IS UNCONFIRMED Confirmed by VALERIA LANDRUM, LUIS ([id number]), features editor BECKY MILLER ([id number]) on 05/21/2020 10:49:03 AM Referred By: SHANIKA Confirmed By:LUIS SHAW MD
[2020-05-20] MEDS: busPIRone 5 MG Tablet 10 MG PO ×2 (09:31→21:43)
[2020-05-20] MEDS: Atenolol 25 MG Tablet PO (09:32)
[2020-05-20] MEDS: Citalopram 40 MG TABLET PO (09:32)
--- NOTE | 2020-05-20 10:48 | PN_ITS ---
Patient Problems: Active and Suspected Problems Seizure (Suspected) Acute kidney injury (Acute) [place] toxicity (Acute) Subjective: Pt states that he is feeling a bit dizzy today, more lightheaded. Otherwise is ok. Discussed recommendation for MRI and pending EEG. Pt agreeable. Seems anxious. Vitals/I&O's: Vital Signs Temp Pulse Resp BP Pulse Ox 98.4 F 81 14 109/59 L 96 05/20/20 09:24 05/20/20 09:24 05/20/20 09:24 05/20/20 09:24 05/20/20 09:24 Oxygen Delivery Method Room Air Weight: 95.6 kg Body Mass Index (BMI) 31.1 Intake and Output for Last 24 Hours 05/18/20 05/19/20 05/20/20 23:59 23:59 23:59 Intake Total 1041.67 / 1401.67 2285.83 / 2285.83 Output Total 1200 / 1200 Balance 1041.67 / 1001.67 1085.83 / 1085.83 General: Alert, Oriented x3, Cooperative, No apparent distress, Well developed, Well nourished, - - WM Lying in bed with sitter at bedside, appears comfortable but anxious HEENT: Atraumatic, PERRLA, EOMI, Normocephalic, EAC Clear Oral: Moist Mucosa, No Gingival or Mucosal Lesions/ Ulcerations Neck: Supple, No JVD, Negative Carotid Bruits, Negative Hepatojugular Reflux, No Nodes, No Nuchal Rigidity, Trachea Midline, Thyroid Normal Size and Texture Lungs: Clear to auscultation, Normal air movement, No rhonchi, No wheeze, No rales Cardiovascular: Regular rate, Regular Rhythm, Normal S1, Normal S2, No murmurs, No Ectopic Activity, No rub noted, No Gallop Abdomen: Bowel Sounds Present, Soft, Non Tender, Non-Distended, No Hepato- splenomegaly, Obese, No hernias noted Extremities: No clubbing, No cyanosis, No edema, Capillary Refill Less than 3 Seconds Skin: No rashes, No breakdown Musculoskeletal: No Tenderness to Palpation of Joints or Extremities, No Muscle Wasting Lymphatic: No Cervical, Supraclavicular, or Inguinal Adenopathy Neurological: Cranial nerves II-XII grossly intact, Deep Tendon Reflexes 2+/4 and Symmetrical, Neuro grossly intact, Motor Exam 5/5 strength throughout, Muscle tone normal, Sensory exam intact to light touch and pain, Coordination normal Psych/Mental Status: Anxious, Flat Affect, Depressed, - - A&O x 3 Laboratory Results 05/19/20 14:30: Sodium 135 L, Potassium 3.8, Chloride 103, Carbon Dioxide 24.0, Anion Gap 8, BUN 35 H, Creatinine 1.55 H, Estim Creat Clear Calc 62.72, Est GFR (MDRD) Af Amer 64, Est GFR (MDRD) Non-Af 53 L, BUN/Creatinine Ratio 22.6 H, Glucose 102, Calcium 9.3, Total Bilirubin 1.30 H, AST 40 H, ALT 43, Alkaline Phosphatase 83, Total Protein 7.9, Albumin 4.7, Globulin 3.2, Albumin/Globulin Ratio 1.5 05/19/20 14:30: Ethyl Alcohol < 3.0 05/19/20 14:30: WBC 14.8 H, RBC 4.16 L, Hgb 12.6 L, Hct 37.8 L, MCV 90.9, MCH 30.3, MCHC 33.3, RDW Std Deviation 39.1, RDW Coeff of Anastacio 11.8, Plt Count 235, MPV 10.0, Immature Gran % (Auto) 0.500, Neut % (Auto) 88.1 H, Lymph % (Auto) 5.9 L, [place] % (Auto) 5.2, Eos % (Auto) 0.1, Baso % (Auto) 0.2, Absolute Neuts (auto) 13.0 H, Absolute Lymphs (auto) 0.88, Nucleated RBC % 0 05/19/20 14:30: [place] 2.00 H* 05/19/20 14:30: PT 13.7, INR 1.1 05/19/20 14:30: TSH 1.25, Prolactin 31.0 05/19/20 14:50: Urine Opiates Screen NEGATIVE, Urine Methadone Screen NEGATIVE, Ur Barbiturates Screen NEGATIVE, Ur Phencyclidine Scrn NEGATIVE, Ur Amphetamines Screen NEGATIVE, U Methamphetamin-MDMA NEGATIVE, U Benzodiazepines Scrn NEGATIVE, Urine Cocaine Screen NEGATIVE, U Cannabinoids Screen NEGATIVE, Ur Drug Screen Comment 05/20/20 05:18: WBC 11.1 H, RBC 3.48 L, Hgb 10.6 L, Hct 32.2 L, MCV 92.5, MCH 30.5, MCHC 32.9, RDW Std Deviation 40.6, RDW Coeff of Anastacio 12.0, Plt Count 181, MPV 10.0, Immature Gran % (Auto) 0.500, Neut % (Auto) 67.8, Lymph % (Auto) 17.7 L, [place] % (Auto) 11.7 H, Eos % (Auto) 2.1, Baso % (Auto) 0.2, Absolute Neuts (auto) 7.5, Absolute Lymphs (auto) 1.96, Nucleated RBC % 0 05/20/20 05:18: Sodium 140, Potassium 3.9, Chloride 111 H, Carbon Dioxide 24.0, Anion Gap 5, BUN 31 H, Creatinine 1.23, Estim Creat Clear Calc 79.03, Est GFR (MDRD) Af Amer 83, Est GFR (MDRD) Non-Af 69, BUN/Creatinine Ratio 25.2 H, Glucose 113 H, Calcium 7.9 L, Total Bilirubin 0.40, AST 26, ALT 34, Alkaline Phosphatase 65, Total Protein 5.9 L, Albumin 3.2, Globulin 2.7, Albumin/Globulin Ratio 1.2 05/20/20 05:18: [place] 1.50 H* Current Medications Acetaminophen (Tylenol) 650 mg PO Q6H PRN PRN PRN Reason: Pain Score 1-10/Temp > 100.7 F Atenolol (Tenormin (Beta Aretha)) 25 mg PO DAILY [facility] Last Admin: 05/20/20 09:32 Dose: 25 mg Documented by: Atorvastatin Calcium (Lipitor) 20 mg PO QHS [facility] Last Admin: 05/19/20 22:25 Dose: 20 mg Documented by: Buspirone HCl (Buspar) 10 mg PO BID [facility] Last Admin: 05/20/20 09:31 Dose: 10 mg Documented by: Citalopram Hydrobromide (Celexa) 40 mg PO DAILY [facility] Last Admin: 05/20/20 09:32 Dose: 40 mg Documented by: Sodium Chloride () 1,000 mls @ 125 mls/hr IV .Q8H [facility] Last Admin: 05/20/20 04:02 Dose: 125 mls/hr Documented by: Sodium Chloride () 250 mls @ 15 mls/hr IV .[id number] PRN PRN Reason: Saline Flush Sodium Chloride () 250 mls @ 15 mls/hr IV .[id number] PRN PRN Reason: Additional IVPB Infusion Levothyroxine Sodium (Synthroid) 112 mcg PO DAILY@0600 [facility] Last Admin: 05/20/20 05:49 Dose: 112 mcg Documented by: Ondansetron HCl (Zofran) 4 mg IV Q8H PRN PRN PRN Reason: NAUSEA/VOMITING Senna/Docusate Sodium (Senokot-S, Jennyfer-Colace) 2 tablet PO BID PRN PRN PRN Reason: Constipation Sodium Chloride () 10 - 40 ml IV UD PRN PRN Reason: SALINE FLUSH Trazodone HCl (Desyrel) 50 mg PO QHS [facility] Last Admin: 05/19/20 22:26 Dose: Not Given Documented by: STROKE Vital Signs/Narrative: Vital Signs Temp Pulse Resp BP Pulse Ox 05/20/20 09:24 98.4 F 81 14 109/59 L 96 05/20/20 07:00 71 05/20/20 06:54 96 Medical Necessity - Tobacco Use Smoking Status: Current every day smoker Tobacco Use: Cigarettes Assessment/Plan All Active Problems Acute kidney injury (Acute) [place] toxicity (Acute) IRLANDA -baseline sCr -.9-1.1 -now 1.23 -d/c IVF and repeat BMP in am -avoid nephotoxins [place] Toxicity -lithium level down to 1.5 from 2 yesterday -repeat in am -QTc is now normalized -takes for bipolar d/o SI with plans -was recently admitted to [facility] for psychiatric admission -may need readmitted at d/c -currently has SI and plans still--> will be evaluated by crisis once medically stable -suspect will be stable in next 24 hrs -continue Suicide precautions and sitter HTN -continue atenolol -BP is not elevated at this time -hold ACEI Hypothyroidism -continue Synthroid HPL -continue Statin Depression/Bipolar d/o -hold lithium -continue Buspar, citalopram, vortioxetine and trazodone for now ? Seizure -CT neg -no further issues -neuro was consulted and recommended and MRI with and without contrast and to reconsult if EEG or MRI is neg -EEG pending Leukocytosis -suspect reactive -trending down -repeat in am Mild Anemia -down but suspect some dilutional -no s/o bleeding Obesity -recommend wgt loss DVT Prophylaxis -continue Code Status -Full Inpatient E&M: 33554 Subs Hosp L3
--- NOTE | 2020-05-20 11:07 | MRI_ITS ---
STUDY: MRI BRAIN WITH AND WITHOUT CONTRAST REASON FOR EXAM: Male, 39 years old. seizures, ?lithium toxicity, bipolar TECHNIQUE: Standardized multiplanar fat and water weighted pulse sequences were obtained. IV dotarem 18ml was administered for the contrast portion of the examination. COMPARISON: None. FINDINGS: Normal size of the ventricles and extra-axial spaces for the patient''s age. Normal white matter tracts of the supratentorial brain. There is no evidence for recent intracranial ischemia or other cause of cytotoxic edema on diffusion weighted imaging (DWI). Normal T2* images of the brain without demonstrated susceptibility artifact. There is no demonstrated hemosiderin stain. Normal bilateral basal ganglia. Normal thalami. There is no extra-axial fluid accumulation. Normal flow voids within the major intracranial circulation suggesting patency by spin echo criteria. Normal venous enhancement. There is no enhancing intra-axial or extra-axial abnormality. Normal sella turcica, pituitary gland, infundibular stalk, optic chiasm and hypothalamus. Normal tectal plate and pineal gland. Normal midbrain, luz marina and medulla. Normal cerebellum. Normal basal cisterns. Normal bilateral temporal bones. Normal bilateral internal auditory canals. No demonstrated orbital abnormality, within the constraints of a routine brain study. Normal visualized paranasal sinuses. Normal calvarium and skull base. Normal visualized soft tissue structures. Normal visualized upper cervical spine. MRI/Brain W/WO Contrast IMPRESSION: Normal unenhanced and enhanced MRI of the brain. Electronically Signed: Pernell Fowler MD at 13:28 EDT Tel , Service support ,
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
[2020-05-20] MEDS: LORazepam 2 MG/ML Syringe 1 MG IV (11:58)
[2020-05-20] MEDS: Atorvastatin Calcium 20 MG Tablet PO (21:43)
[2020-05-21] VITALS (10 sets, daily range): BP systolic 101–141; BP diastolic 64–93; PULSE 56–80; RESP 16–18; TEMP 36.4–36.8; O2SAT 92–98
[2020-05-21] MEDS: Levothyroxine 112 MCG Tablet PO (03:48)
[2020-05-21 06:54] LABS: Absolute Lymphocyte Count 2.12 X10^3/uL (0.83-4.51); Absolute Neutrophil Count 5.4 X10^3/uL (2.0-7.7); Basophil# 0.03 X10^3/uL; Basophil% 0.4 % (0-1); Eosinophil# 0.23 X10^3/uL; Eosinophils% 2.7 % (0-5); Hematocrit 33.8 % (40-54); Lymphocyte # 2.12 X10^3/ul (4.0); Lymphocyte % 24.7 % (19-41); Mean Corp Hgb Conc 32.5 g/dL (32-36); Mean Corpuscular Hgb 30.4 pg (27.0-32.0); Mean Corpuscular Volume 93.4 fL (80-94); Mean Platelet Vol. 10.1 fl (6.2-12.0); Monocyte# 0.79 X10^3/uL; Monocyte% 9.2 % (0-10); NRBC Flagged by Analyzer 0 % (0-5); Neutrophil # 5.37 X10^3/uL (2.7-7.7); Neutrophil % 62.6 % (47-70); Platelet Count 186 K/mm3 (150-450); RBC Distribution Width CV 12.2 % (11.6-14.6); RBC Distribution Width SD 42.2 fl (35.1-43.9); Red Blood Count 3.62 M/mm3 (4.6-6.2); White Blood Count 8.6 K/mm3 (4.4-11.0)
[2020-05-21 07:28] LABS: Anion Gap 5 (5-15); BUN 16 mg/dL (7-18); BUN/Creat Ratio 17.2 RATIO (10-20); Calcium,Total 7.9 mg/dL (8.5-10.1); Chloride 110 mmol/L (98-107); Creatinine, Serum 0.93 mg/dL (0.70-1.30); EST Glomerular Filtration Rate 95 mL/min (>60); Est Glom Filt Rate - Afr Amer 114 mL/min (>60); Estimated Creatinine Clearance 104.53 ml/min; Glucose 94 mg/dL (74-106); Potassium 3.6 mmol/L (3.5-5.1); Sodium Level 138 mmol/L (136-145)
[2020-05-21] MEDS: busPIRone 5 MG Tablet 10 MG PO ×2 (08:44→21:35)
[2020-05-21] MEDS: Atenolol 25 MG Tablet PO (08:44)
[2020-05-21] MEDS: Citalopram 40 MG TABLET PO (08:44)
[2020-05-21] MEDS: Acetaminophen 325 MG Tablet 650 MG PO ×3 (08:44→21:35)
--- NOTE | 2020-05-21 15:07 | NURSING ---
VSA late d/t patient being on phone with crisis.
--- NOTE | 2020-05-21 16:42 | PN_ITS ---
Patient Problems: Active and Suspected Problems Seizure (Suspected) Acute kidney injury (Acute) [place] toxicity (Acute) Subjective: Pt states he is feeling ok. No issues overnight. Vitals/I&O's: Vital Signs Temp Pulse Resp BP Pulse Ox 97.5 F L 71 18 141/69 H 96 05/21/20 15:11 05/21/20 15:11 05/21/20 15:11 05/21/20 15:11 05/21/20 15:11 Oxygen Delivery Method Room Air Weight: 95.6 kg Body Mass Index (BMI) 31.1 Intake and Output for Last 24 Hours 05/19/20 05/20/20 05/21/20 23:59 23:59 23:59 Intake Total 1041.67 / 1401.67 3905.83 / 3905.83 222 / 222 Output Total 1200 / 1200 Balance 1041.67 / 1001.67 2705.83 / 2705.83 222 / 222 General: Alert, Oriented x3, Cooperative, No apparent distress, Well developed, Well nourished, - - WM sitting up in bed, sitter at bedside and and pt calm Lungs: Clear to auscultation, Normal air movement, No rhonchi, No wheeze, No rales Cardiovascular: Regular rate, Regular Rhythm, Normal S1, Normal S2, No Ectopic Activity, No rub noted, No Gallop Abdomen: Bowel Sounds Present, Soft, Non Tender, Non-Distended Extremities: No clubbing, No cyanosis, No edema, Capillary Refill Less than 3 Seconds Psych/Mental Status: Appropriate, Flat Affect, Depressed, - - A&0 x 4 Laboratory Results 05/21/20 05:40: WBC 8.6, RBC 3.62 L, Hgb 11.0 L, Hct 33.8 L, MCV 93.4, MCH 30.4, MCHC 32.5, RDW Std Deviation 42.2, RDW Coeff of Anastacio 12.2, Plt Count 186, MPV 10.1, Immature Gran % (Auto) 0.400, Neut % (Auto) 62.6, Lymph % (Auto) 24.7, [place] % (Auto) 9.2, Eos % (Auto) 2.7, Baso % (Auto) 0.4, Absolute Neuts (auto) 5.4, Absolute Lymphs (auto) 2.12, Nucleated RBC % 0 05/21/20 05:40: Sodium 138, Potassium 3.6, Chloride 110 H, Carbon Dioxide 23.0, Anion Gap 5, BUN 16, Creatinine 0.93, Estim Creat Clear Calc 104.53, Est GFR (MDRD) Af Amer 114, Est GFR (MDRD) Non-Af 95, BUN/Creatinine Ratio 17.2, Glucose 94, Calcium 7.9 L 05/21/20 10:03: [place] 1.00 Current Medications Acetaminophen (Tylenol) 650 mg PO Q6H PRN PRN PRN Reason: Pain Score 1-10/Temp > 100.7 F Last Admin: 05/21/20 15:17 Dose: 650 mg Documented by: Atenolol (Tenormin (Beta Aretha)) 25 mg PO DAILY [facility] Last Admin: 05/21/20 08:44 Dose: 25 mg Documented by: Atorvastatin Calcium (Lipitor) 20 mg PO QHS [facility] Last Admin: 05/20/20 21:43 Dose: 20 mg Documented by: Buspirone HCl (Buspar) 10 mg PO BID [facility] Last Admin: 05/21/20 08:44 Dose: 10 mg Documented by: Citalopram Hydrobromide (Celexa) 40 mg PO DAILY [facility] Last Admin: 05/21/20 08:44 Dose: 40 mg Documented by: Sodium Chloride () 250 mls @ 15 mls/hr IV .[id number] PRN PRN Reason: Saline Flush Sodium Chloride () 250 mls @ 15 mls/hr IV .[id number] PRN PRN Reason: Additional IVPB Infusion Levothyroxine Sodium (Synthroid) 112 mcg PO DAILY@0600 [facility] Last Admin: 05/21/20 03:48 Dose: 112 mcg Documented by: Ondansetron HCl (Zofran) 4 mg IV Q8H PRN PRN PRN Reason: NAUSEA/VOMITING Senna/Docusate Sodium (Senokot-S, Jennyfer-Colace) 2 tablet PO BID PRN PRN PRN Reason: Constipation Sodium Chloride () 10 - 40 ml IV UD PRN PRN Reason: SALINE FLUSH Trazodone HCl (Desyrel) 50 mg PO QHS [facility] Last Admin: 05/20/20 21:42 Dose: Not Given Documented by: STROKE Vital Signs/Narrative: Vital Signs Temp Pulse Resp BP Pulse Ox 05/21/20 15:11 97.5 F L 71 18 141/69 H 96 05/21/20 15:05 72 Medical Necessity - Tobacco Use Smoking Status: Current every day smoker Tobacco Use: Cigarettes Assessment/Plan All Active Problems Acute kidney injury (Acute) [place] toxicity (Acute) IRLANDA -baseline sCr -.9-1.1 -now 1.23 -d/c IVF and repeat BMP in am -avoid nephotoxins [place] Toxicity -lithium level down to 1 -resolved SI with plans -was recently admitted to [facility] for psychiatric admission -may need readmitted at d/c--> was seen by crisis and awaiting input for d/c -is medically stable for d/c -continue Suicide precautions and sitter HTN -continue atenolol -restart ACEI Hypothyroidism -continue Synthroid HPL -continue Statin Depression/Bipolar d/o -restart lithium -continue Buspar, citalopram, vortioxetine and trazodone for now ? Seizure -CT neg -no further issues -MRI neg -EEG neg for seizure activity Leukocytosis -resolved Mild Anemia -down but suspect some dilutional -better on lab today -no s/o bleeding Obesity -recommend wgt loss DVT Prophylaxis -continue Code Status -Full Inpatient E&M: 93167 Subs Hosp L2
[2020-05-21] MEDS: Lisinopril 20 MG Tablet PO (18:21)
[2020-05-21] MEDS: Lithium Carbonate 300mg Capsule 300 MG PO (18:21)
--- NOTE | 2020-05-21 18:26 | PCA ---
Addendum entered by Mahi Vora 05/21/20 19:18: Copy of pink slip faxed to same name. Counseling center called and stated that [facility] accepted patient but that he is on a wait list. Original Note: EEG report and EKG faxed to [facility],
[2020-05-21] MEDS: Atorvastatin Calcium 20 MG Tablet PO (21:35)
[2020-05-22] VITALS (7 sets, daily range): BP systolic 109–124; BP diastolic 65–78; PULSE 60–73; RESP 16–18; TEMP 36.6–36.9; O2SAT 96–100
[2020-05-22] MEDS: Levothyroxine 112 MCG Tablet PO (05:16)
[2020-05-22] MEDS: Acetaminophen 325 MG Tablet 650 MG PO (08:09)
[2020-05-22] MEDS: busPIRone 5 MG Tablet 10 MG PO ×2 (09:00→22:12)
[2020-05-22] MEDS: Lisinopril 20 MG Tablet PO (09:00)
[2020-05-22] MEDS: Citalopram 40 MG TABLET PO (09:00)
[2020-05-22] MEDS: Lithium Carbonate 300mg Capsule 300 MG PO ×2 (09:00→15:57)
[2020-05-22] MEDS: Atenolol 25 MG Tablet PO (09:00)
--- NOTE | 2020-05-22 15:44 | PN_ITS ---
Patient Problems: Active and Suspected Problems Seizure (Suspected) Acute kidney injury (Acute) [place] toxicity (Acute) Subjective: Feels anxious today. No other issues. Vitals/I&O's: Vital Signs Temp Pulse Resp BP Pulse Ox 98.2 F 62 18 124/71 H 97 05/22/20 14:57 05/22/20 15:09 05/22/20 14:57 05/22/20 14:57 05/22/20 14:57 Oxygen Delivery Method Room Air Weight: 95.6 kg Body Mass Index (BMI) 31.1 Intake and Output for Last 24 Hours 05/20/20 05/21/20 05/22/20 23:59 23:59 23:59 Intake Total 3905.83 / 3905.83 916 / 916 462 / 462 Output Total 1200 / 1200 Balance 2705.83 / 2705.83 916 / 916 462 / 462 General: Alert, Oriented x3, Cooperative, No apparent distress, Well developed, Well nourished Lungs: Clear to auscultation, Normal air movement, No rhonchi, No wheeze, No rales Cardiovascular: Regular rate, Regular Rhythm, Normal S1, Normal S2, No murmurs, No Ectopic Activity, No rub noted, No Gallop Abdomen: Bowel Sounds Present, Soft, Non Tender, Non-Distended, No Hepato-sple nomegaly Extremities: No clubbing, No cyanosis, No edema Psych/Mental Status: Appropriate, Flat Affect Current Medications Acetaminophen (Tylenol) 650 mg PO Q6H PRN PRN PRN Reason: Pain Score 1-10/Temp > 100.7 F Last Admin: 05/22/20 08:09 Dose: 650 mg Documented by: Atenolol (Tenormin (Beta Aretha)) 25 mg PO DAILY [facility] Last Admin: 05/22/20 09:00 Dose: 25 mg Documented by: Atorvastatin Calcium (Lipitor) 20 mg PO QHS [facility] Last Admin: 05/21/20 21:35 Dose: 20 mg Documented by: Buspirone HCl (Buspar) 10 mg PO BID [facility] Last Admin: 05/22/20 09:00 Dose: 10 mg Documented by: Citalopram Hydrobromide (Celexa) 40 mg PO DAILY [facility] Last Admin: 05/22/20 09:00 Dose: 40 mg Documented by: Sodium Chloride () 250 mls @ 15 mls/hr IV .[id number] PRN PRN Reason: Saline Flush Sodium Chloride () 250 mls @ 15 mls/hr IV .[id number] PRN PRN Reason: Additional IVPB Infusion Levothyroxine Sodium (Synthroid) 112 mcg PO DAILY@0600 [facility] Last Admin: 05/22/20 05:16 Dose: 112 mcg Documented by: Lisinopril (Zestril) 20 mg PO DAILY [facility] Last Admin: 05/22/20 09:00 Dose: 20 mg Documented by: [place] Carbonate ([place] Carbonate) 300 mg PO BIDCM [facility] Last Admin: 05/22/20 09:00 Dose: 300 mg Documented by: Lorazepam (Ativan) 1 mg PO X1 ONE Stop: 05/22/20 15:43 Ondansetron HCl (Zofran) 4 mg IV Q8H PRN PRN PRN Reason: NAUSEA/VOMITING Senna/Docusate Sodium (Senokot-S, Jennyfer-Colace) 2 tablet PO BID PRN PRN PRN Reason: Constipation Sodium Chloride () 10 - 40 ml IV UD PRN PRN Reason: SALINE FLUSH Trazodone HCl (Desyrel) 50 mg PO QHS [facility] Last Admin: 05/21/20 21:34 Dose: Not Given Documented by: STROKE Vital Signs/Narrative: Vital Signs Temp Pulse Resp BP Pulse Ox 05/22/20 15:09 62 05/22/20 14:57 98.2 F 69 18 124/71 H 97 Medical Necessity - Tobacco Use Smoking Status: Current every day smoker Tobacco Use: Cigarettes Assessment/Plan All Active Problems Acute kidney injury (Acute) [place] toxicity (Acute) IRLANDA -resolved [place] Toxicity -resolved SI with plans -was recently admitted to [facility] for psychiatric admission -waiting for bed at psych facility--> 6th on list -is medically stable for d/c -continue Suicide precautions and sitter HTN -continue atenolol -restart ACEI Hypothyroidism -continue Synthroid HPL -continue Statin Depression/Bipolar d/o -continue Buspar, citalopram, vortioxetine, lithium and trazodone for now -ativan x 1 dose ? Seizure-doubtful -CT neg -no further issues -MRI neg -EEG neg for seizure activity Leukocytosis -resolved Mild Anemia -stable -no s/o bleeding Obesity -recommend wgt loss DVT Prophylaxis -continue Code Status -Full Inpatient E&M: 82308 Subs Hosp L2
[2020-05-22] MEDS: LORazepam 1 MG Tablet PO (15:57)
[2020-05-22] MEDS: Atorvastatin Calcium 20 MG Tablet PO (22:12)
[2020-05-22] MEDS: LORazepam 0.5 MG Tablet PO (22:12)
[2020-05-23] VITALS: PULSE 62
[2020-05-23] MEDS: Acetaminophen 325 MG Tablet 650 MG PO (03:20)
[2020-05-23 03:22] VITALS: BP 120/85; PULSE 72; RESP 18; TEMP 36.6; O2SAT 97
[2020-05-23 06:00] VITALS: PULSE 55
[2020-05-23] MEDS: Levothyroxine 112 MCG Tablet PO (06:14)
[2020-05-23 08:30] VITALS: BP 117/84; PULSE 73; RESP 18; TEMP 36.7; O2SAT 100
[2020-05-23] MEDS: Citalopram 40 MG TABLET PO (08:42)
[2020-05-23] MEDS: busPIRone 5 MG Tablet 10 MG PO (08:42)
[2020-05-23] MEDS: Lithium Carbonate 300mg Capsule 300 MG PO (08:42)
[2020-05-23] MEDS: Atenolol 25 MG Tablet PO ×2 (08:43)
[2020-05-23] MEDS: Lisinopril 20 MG Tablet PO (08:43)
--- NOTE | 2020-05-23 10:06 | PCM.PN.HOSP ---
Patient Problems: Active and Suspected Problems Seizure (Suspected) Acute kidney injury (Acute) [place] toxicity (Acute) Reason for Visit: Acute kidney injury, lithium toxicity, suicidal ideation Subjective: Patient is a 39-year-old gentleman admitted with questionable seizure disorder. Patient was found to have acute kidney injury in addition to lithium toxicity admitted to monitored bed for further management Objective: GENERAL: cooperative HEENT: Atraumatic; EYES; Anicteric, Normal Conjunctiva NECK; supple, normal thyroid, RESPIRATORY: Diminished to auscultation CARDIOVASCULAR: Regular S1 S2, GI: soft, normoactive bowel sounds, : No Renal angle tenderness; EXTREMITIES: No edema, no clubbing, MUSCULOSKELETAL: no muscle waisting NEURO: Awake; no lateralizing signs. SKIN: No Rash PSYCH; Flat affect Vitals/I&O's: Vital Signs Temp Pulse Resp BP Pulse Ox 98.1 F 73 18 117/84 H 100 05/23/20 08:30 05/23/20 08:30 05/23/20 08:30 05/23/20 08:30 05/23/20 08:30 Oxygen Delivery Method Room Air Weight: 95.6 kg Body Mass Index (BMI) 31.1 Intake and Output for Last 24 Hours 05/21/20 05/22/20 05/23/20 23:59 23:59 23:59 Intake Total 916 / 916 1128 / 1728 840 / 840 Balance 916 / 916 1128 / 1728 840 / 840 Current Medications Acetaminophen (Tylenol) 650 mg PO Q6H PRN PRN PRN Reason: Pain Score 1-10/Temp > 100.7 F Last Admin: 05/23/20 03:20 Dose: 650 mg Documented by: Atenolol (Tenormin (Beta Aretha)) 25 mg PO DAILY [facility] Last Admin: 05/23/20 08:43 Dose: 25 mg Documented by: Atorvastatin Calcium (Lipitor) 20 mg PO QHS [facility] Last Admin: 05/22/20 22:12 Dose: 20 mg Documented by: Buspirone HCl (Buspar) 10 mg PO BID [facility] Last Admin: 05/23/20 08:42 Dose: 10 mg Documented by: Citalopram Hydrobromide (Celexa) 40 mg PO DAILY [facility] Last Admin: 05/23/20 08:42 Dose: 40 mg Documented by: Sodium Chloride () 250 mls @ 15 mls/hr IV .[id number] PRN PRN Reason: Saline Flush Sodium Chloride () 250 mls @ 15 mls/hr IV .[id number] PRN PRN Reason: Additional IVPB Infusion Levothyroxine Sodium (Synthroid) 112 mcg PO DAILY@0600 [facility] Last Admin: 05/23/20 06:14 Dose: 112 mcg Documented by: Lisinopril (Zestril) 20 mg PO DAILY [facility] Last Admin: 05/23/20 08:43 Dose: 20 mg Documented by: [place] Carbonate ([place] Carbonate[facility] Last Admin: 05/23/20 08:42 Dose: 300 mg Documented by: Ondansetron HCl (Zofran) 4 mg IV Q8H PRN PRN PRN Reason: NAUSEA/VOMITING Senna/Docusate Sodium (Senokot-S, Jennyfer-Colace) 2 tablet PO BID PRN PRN PRN Reason: Constipation Sodium Chloride () 10 - 40 ml IV UD PRN PRN Reason: SALINE FLUSH Trazodone HCl (Desyrel) 50 mg PO QHS [facility] Last Admin: 05/22/20 22:12 Dose: Not Given Documented by: STROKE Vital Signs/Narrative: Vital Signs Temp Pulse Resp BP Pulse Ox 05/23/20 08:30 98.1 F 73 18 117/84 H 100 Medical Necessity - Tobacco Use Smoking Status: Current every day smoker Tobacco Use: Cigarettes Assessment/Plan All Active Problems Acute kidney injury (Acute) [place] toxicity (Acute) Patient is a 39-year-old gentleman admitted with questionable seizure disorder. Patient was found to have acute kidney injury in addition to lithium toxicity admitted to monitored bed for further management 1. Acute kidney injury Resolved with IV hydration 2. [place] toxicity ?Resolved 3. Suicidal ideation with plans ?Currently has a sitter one-to-one. Awaiting transfer to [facility] inpatient psych facility once bed becomes available 4. Hypertension - Blood pressure controlled, home medications continued with dose adjustment as needed 5. Hypothyroidism - Patient is on levothyroxine home dose continued 6. Dyslipidemia -Patient is on statin therapy, continued at home dose 7. Bipolar disorder ?Did continue patient psychotropic medications 8. Questionable seizure ?Work-up is so far been negative including MRI and EEG 9. Obesity with BMI of 31 ?Weight loss advised Inpatient E&M: 48134 Subs Hosp L2
--- NOTE | 2020-05-23 13:04 | DCINST_ITS ---
- Discharge Diagnoses Current Active Problems: Current Active and Chronic Problems Acute kidney injury (Acute) [place] toxicity (Acute) Hyperlipidemia (Chronic) Hypothyroidism (Chronic) Hypertension (Chronic) Bipolar disorder (Chronic) You will use the following diet at home:: No restrictions Discharge Activity: Return to Normal Activity Allergies/Adverse Reactions: Allergies No Known Allergies Allergy (Verified 05/17/20 21:31) Medications to take at Discharge Atenolol [Tenormin (beta cici)] 25 mg PO DAILY 04/10/16 Levothyroxine [Synthroid] 112 mcg PO DAILY 03/31/17 Lisinopril 20 mg PO DAILY 03/31/17 Atorvastatin Calcium [Lipitor] 20 mg PO DAILY 04/01/20 Buspirone HCl 10 mg PO BID 04/01/20 Citalopram Hydrobromide [Citalopram HBr] 40 mg PO DAILY 04/01/20 [place] 300 mg PO BID 04/01/20 Vortioxetine Hydrobromide [Trintellix] 5 mg PO DAILY 05/19/20 traZODone [Desyrel] 50 mg PO QHS 05/19/20 Primary Care Physician: Tristan Perdomo MD [Primary Care Provider] - Please follow up with your Primary Care Physician in: call for appt Test Results: Test results from this visit will be discussed in further detail at your follow- up appointment, if applicable. Proposed Discharge Date: 05/23/20
--- NOTE | 2020-05-23 13:08 | PCM.DC.SUM ---
Discharge Date and Diagnosis - Problem List Patient Problems: Active and Suspected Problems Seizure (Suspected) Acute kidney injury (Acute) [place] toxicity (Acute) Date of Admission: 05/19/20 Date of Discharge: 05/23/20 - Primary Discharge Diagnosis Acute Problems: Active Problems Acute kidney injury (Acute) [place] toxicity (Acute) Suspected Problems: Suspected Problems Seizure (Suspected) - Secondary Discharge Diagnosis Chronic Problems: Chronic Problems Hyperlipidemia (Chronic) Hypothyroidism (Chronic) Hypertension (Chronic) Bipolar disorder (Chronic) Depression (Chronic) Hospital Course and Treatment Consultations 05/19/20 17:39 Consult: Mental Health/Crisis Routine Reason for consult?: Suicidal ideations. Please call when medically stable. Date Notified:: 05/21/20 Time Notified:: 13:11 Summary of Care Provided: The patient is a 39 year old M admitted with questionable seizure disorder. Patient was found to have acute kidney injury in addition to lithium toxicity admitted to monitored bed for further management 1. Acute kidney injury Resolved with IV hydration 2. [place] toxicity ?Resolved 3. Suicidal ideation with plans ?Currently has a sitter one-to-one. Awaiting transfer to [facility] psych facility once bed becomes available -Patient was transferred to [facility] psych facility once bed became available 4. Hypertension - Blood pressure controlled, home medications continued with dose adjustment as needed 5. Hypothyroidism - Patient is on levothyroxine home dose continued 6. Dyslipidemia -Patient is on statin therapy, continued at home dose 7. Bipolar disorder ?Did continue patient psychotropic medications 8. Questionable seizure ?Work-up is so far been negative including MRI and EEG 9. Obesity with BMI of 31 ?Weight loss advised Patient Problems: Active and Suspected Problems Seizure (Suspected) Acute kidney injury (Acute) [place] toxicity (Acute) - Physical Exam Vitals/I&O's: Vital Signs Temp Pulse Resp BP Pulse Ox 98.1 F 73 18 117/84 H 100 05/23/20 08:30 05/23/20 08:30 05/23/20 08:30 05/23/20 08:30 05/23/20 08:30 Oxygen Delivery Method Room Air Weight: 95.6 kg Body Mass Index (BMI) 31.1 Intake and Output for Last 24 Hours 05/21/20 05/22/20 05/23/20 23:59 23:59 23:59 Intake Total 916 / 916 1128 / 1728 840 / 840 Balance 916 / 916 1128 / 1728 840 / 840 HEENT: Atraumatic Lungs: Normal air movement Psych/Mental Status: Flat Affect Current Medications Acetaminophen (Tylenol) 650 mg PO Q6H PRN PRN PRN Reason: Pain Score 1-10/Temp > 100.7 F Last Admin: 05/23/20 03:20 Dose: 650 mg Documented by: Atenolol (Tenormin (Beta Aretha)) 25 mg PO DAILY [facility] Last Admin: 05/23/20 08:43 Dose: 25 mg Documented by: Atorvastatin Calcium (Lipitor) 20 mg PO QHS [facility] Last Admin: 05/22/20 22:12 Dose: 20 mg Documented by: Buspirone HCl (Buspar) 10 mg PO BID [facility] Last Admin: 05/23/20 08:42 Dose: 10 mg Documented by: Citalopram Hydrobromide (Celexa) 40 mg PO DAILY [facility] Last Admin: 05/23/20 08:42 Dose: 40 mg Documented by: Sodium Chloride () 250 mls @ 15 mls/hr IV .[id number] PRN PRN Reason: Saline Flush Sodium Chloride () 250 mls @ 15 mls/hr IV .[id number] PRN PRN Reason: Additional IVPB Infusion Levothyroxine Sodium (Synthroid) 112 mcg PO DAILY@0600 [facility] Last Admin: 05/23/20 06:14 Dose: 112 mcg Documented by: Lisinopril (Zestril) 20 mg PO DAILY [facility] Last Admin: 05/23/20 08:43 Dose: 20 mg Documented by: [place] Carbonate (Amonate Carbonate) 300 mg PO BIDCM [facility] Last Admin: 05/23/20 08:42 Dose: 300 mg Documented by: Lorazepam (Ativan) 1 mg PO X1 ONE Stop: 05/23/20 12:59 Ondansetron HCl (Zofran) 4 mg IV Q8H PRN PRN PRN Reason: NAUSEA/VOMITING Senna/Docusate Sodium (Senokot-S, Jennyfer-Colace) 2 tablet PO BID PRN PRN PRN Reason: Constipation Sodium Chloride () 10 - 40 ml IV UD PRN PRN Reason: SALINE FLUSH Trazodone HCl (Desyrel) 50 mg PO QHS [facility] Last Admin: 05/22/20 22:12 Dose: Not Given Documented by: Discharge Diet: No Restrictions Discharge Activity: Return to Normal Activity Home Medications: Medications to take at Discharge Atenolol [Tenormin (beta aretha)] 25 mg PO DAILY 04/10/16 Levothyroxine [Synthroid] 112 mcg PO DAILY 03/31/17 Lisinopril 20 mg PO DAILY 03/31/17 Atorvastatin Calcium [Lipitor] 20 mg PO DAILY 04/01/20 Buspirone HCl 10 mg PO BID 04/01/20 Citalopram Hydrobromide [Citalopram HBr] 40 mg PO DAILY 04/01/20 [place] 300 mg PO BID 04/01/20 Vortioxetine Hydrobromide [Trintellix] 5 mg PO DAILY 05/19/20 traZODone [Desyrel] 50 mg PO QHS 05/19/20 Primary Care Physician: Tristan Perdomo MD [Primary Care Provider] - Please follow up with your Primary Care Physician in: call for appt Disposition: Home Minutes spent on discharge:: 35 Patient Condition:: Stable Medical Necessity - Tobacco Use Smoking Status: Current every day smoker Tobacco Use: Cigarettes Meaningful Use Info Meaningful Use Diagnoses (Choose all that apply): None applicable Inpatient E&M: 96353 Disch Hosp
[2020-05-23 13:11] VITALS: BP 112/71; PULSE 65; RESP 18; TEMP 36.9; O2SAT 96
[2020-05-23] MEDS: LORazepam 1 MG Tablet PO (13:16)
--- NOTE | 2020-05-23 13:26 | NURSING ---
report given to [facility] staff who came to transport pt
== END 2020-05-23 13:30 | DRG 683 ==
LOC: ED 14:35 → PCU 17:01
PROVIDERS: Internal Medicine; Admitting Provider Hospitalist; Emergency Provider Emergency Medicine; PCP Family Medicine; Visit Provider Internal Medicine
DX: N17.9 Acute kidney failure, unspecified (principal); R45.851 Suicidal ideations; T43.591A Poisoning by other antipsychotics and neuroleptics, accidental (unintentional), initial encounter; E86.0 Dehydration; R56.9 Unspecified convulsions; I10 Essential (primary) hypertension; E78.5 Hyperlipidemia, unspecified; E03.9 Hypothyroidism, unspecified; F31.9 Bipolar disorder, unspecified; F17.210 Nicotine dependence, cigarettes, uncomplicated; E66.9 Obesity, unspecified; Z68.31 Body mass index [BMI] 31.0-31.9, adult; Y92.9 Unspecified place or not applicable; Z79.890 Hormone replacement therapy; Z79.899 Other long term (current) drug therapy
CPT/HCPCS: 36415; 70450; 70553; 80048; 80053; 80178; 80307; 80320; 84146; 84443; 85025; 85610; 93005; 99285; A9575; J7030; A4216; G0480

== ENCOUNTER 2020-06-18 17:44 | Emergency (ER) | payer MEDICAID, SELFPAY ==
[2020-05-19 17:44] VITALS: BMI 31.1
[2020-06-18] VITALS (8 sets, daily range): BP systolic 133–139; BP diastolic 90–98; PULSE 98–137; RESP 16–18; TEMP 36.3; O2SAT 97; BMI 32.5
--- NOTE | 2020-06-18 18:07 | ED.VIS.GEN ---
History of Present Illness Chief Complaint: Suicidal Informant: Patient Onset: Month(s) Narrative: Present secondary to suicidal ideation. He states symptoms of been ongoing for at least a month. He was just hospitalized at [facility] and released approximate 1 week ago. He states his lithium was switched to Abilify after he had been briefly hospitalized for lithium toxicity. Patient does have history of head injury and suffers from chronic headaches. He had an MRI on May 20 that was unremarkable. Patient states that his plan is to shoot himself with a gun. He states he is never actually followed through with an attempt. - Past Medical History (1) Hyperlipidemia Status: Chronic (2) Hypothyroidism Status: Chronic (3) Hypertension Status: Chronic (4) Bipolar disorder Status: Chronic (5) Depression Status: Chronic Past Medical History - Allergies and Home Meds Allergies/Adverse Reactions: Allergies No Known Allergies Allergy (Verified 06/18/20 17:44) Primary Care Physician: Tristan Perdomo MD [Primary Care Provider] - Prior records reviewed: Yes Surgical History: noncontributory Smoking Status: Current every day smoker Alcohol: Occasional Drugs: None - Family History Maternal Family History: Reports: No pertinent history Paternal Family History: Reports: No pertinent history Review of Systems General: Denies: Chills, Fever Eyes: Denies: Visual changes - bilaterally ENT: Denies: Bilateral ear pain Cardiovascular: Denies: Chest pain Respiratory: Denies: Dyspnea, Cough Gastrointestinal: Denies: Abdominal pain, Nausea, Vomiting, Diarrhea Musculoskeletal: Denies: Swelling, Extremity Pain Skin: Denies: Rash Neurological: Reports: Headache. Denies: Weakness, Parasthesia Psych: Reports: Suicidal thoughts Hematologic: Denies: Easy bruising Allergy: Denies: Uticaria Physical Exam Vital Signs/Narrative: Vital Signs Temp Pulse Resp BP Pulse Ox 06/18/20 17:45 97.3 F L 137 H 18 133/98 H 97 Inital Vital Signs reviewed: Yes General: Well nourished, Well developed Head: Normocephalic ENT: Moist mucous membranes Neck: Supple Cardiovascular: Regular rhythm, Tachycardia Respiratory: No distress, CTA bilaterally Abdomen: Soft, Nontender Extremities: Nontender Skin: Normal color Neurological: Alert, Oriented x3, Normal Strength, Normal Sensation Psychological: - - Anxious, admits to suicidal ideation with plan to shoot himself. Diagnostic/Tx/Re-eval Laboratory Results 06/18/20 06/18/20 06/18/20 18:00 18:08 18:08 WBC 9.8 RBC 4.60 Hgb 13.8 Hct 41.9 MCV 91.1 MCH 30.0 MCHC 32.9 RDW Std Deviation 42.8 RDW Coeff of Anastacio 12.8 Plt Count 267 MPV 9.4 Immature Gran % (Auto) 0.600 Neut % (Auto) 75.2 H Lymph % (Auto) 16.8 L [place] % (Auto) 6.7 Eos % (Auto) 0.5 Baso % (Auto) 0.2 Absolute Neuts (auto) 7.4 Absolute Lymphs (auto) 1.65 Nucleated RBC % 0 Sodium 141 Potassium 3.9 Chloride 109 H Carbon Dioxide 25.0 Anion Gap 7 BUN 20 H Creatinine 1.09 Estim Creat Clear Calc 89.19 Est GFR (MDRD) Af Amer 95 Est GFR (MDRD) Non-Af 79 BUN/Creatinine Ratio 18.3 Glucose 94 Calcium 9.4 TSH 1.17 Urine Opiates Screen NEGATIVE Urine Methadone Screen NEGATIVE Ur Barbiturates Screen NEGATIVE Ur Phencyclidine Scrn NEGATIVE Ur Amphetamines Screen NEGATIVE U Methamphetamin-MDMA NEGATIVE U Benzodiazepines Scrn NEGATIVE Urine Cocaine Screen NEGATIVE U Cannabinoids Screen NEGATIVE Ur Drug Screen Comment Ethyl Alcohol 06/18/20 18:08 WBC RBC Hgb Hct MCV MCH MCHC RDW Std Deviation RDW Coeff of Anastacio Plt Count MPV Immature Gran % (Auto) Neut % (Auto) Lymph % (Auto) [place] % (Auto) Eos % (Auto) Baso % (Auto) Absolute Neuts (auto) Absolute Lymphs (auto) Nucleated RBC % Sodium Potassium Chloride Carbon Dioxide Anion Gap BUN Creatinine Estim Creat Clear Calc Est GFR (MDRD) Af Amer Est GFR (MDRD) Non-Af BUN/Creatinine Ratio Glucose Calcium TSH Urine Opiates Screen Urine Methadone Screen Ur Barbiturates Screen Ur Phencyclidine Scrn Ur Amphetamines Screen U Methamphetamin-MDMA U Benzodiazepines Scrn Urine Cocaine Screen U Cannabinoids Screen Ur Drug Screen Comment Ethyl Alcohol < 3.0 - Medical Decision Making She was given ibuprofen followed by Tylenol for his headache. He was given a dose of Ativan for anxiety. Blood work is rather unremarkable. Patient was discussed with crisis. They are going to try to place him at [facility] as he does continue to report suicidal ideation with a plan. This will be signed out to oncoming physician for final disposition. ED Disposition - Plan for ED Patient: Referrals: Tristan Perdomo MD [Primary Care Provider] -
[2020-06-18] MEDS: Ibuprofen 600 MG Tablet PO (18:17)
[2020-06-18] MEDS: LORazepam 1 MG Tablet PO (18:18)
[2020-06-18 18:24] LABS: Absolute Lymphocyte Count 1.65 X10^3/uL (0.83-4.51); Absolute Neutrophil Count 7.4 X10^3/uL (2.0-7.7); Basophil# 0.02 X10^3/uL; Basophil% 0.2 % (0-1); Eosinophil# 0.05 X10^3/uL; Eosinophils% 0.5 % (0-5); Hematocrit 41.9 % (40-54); Hemoglobin 13.8 g/dL (13.0-16.5); Lymphocyte # 1.65 X10^3/ul (4.0); Lymphocyte % 16.8 % (19-41); Mean Corp Hgb Conc 32.9 g/dL (32-36); Mean Corpuscular Volume 91.1 fL (80-94); Mean Platelet Vol. 9.4 fl (6.2-12.0); Monocyte# 0.66 X10^3/uL; Monocyte% 6.7 % (0-10); NRBC Flagged by Analyzer 0 % (0-5); Neutrophil # 7.37 X10^3/uL (2.7-7.7); Neutrophil % 75.2 % (47-70); Platelet Count 267 K/mm3 (150-450); RBC Distribution Width CV 12.8 % (11.6-14.6); RBC Distribution Width SD 42.8 fl (35.1-43.9); White Blood Count 9.8 K/mm3 (4.4-11.0)
[2020-06-18 18:37] LABS: Alcohol, Blood (Medical)-Serum < 3.0 mg/dL
[2020-06-18 18:38] LABS: Amphetamine Urine VISTA NEGATIVE (<1000 ng/mL); Barbiturate Urine VISTA NEGATIVE (< 200 ng/mL); Benzodiazepine Urine VISTA NEGATIVE (< 200 ng/mL); Cocaine Urine VISTA NEGATIVE (< 300 ng/mL); Ecstacy Urine VISTA NEGATIVE (< 500 ng/mL); Methadone Urine VISTA NEGATIVE (< 300 ng/mL); PCP Urine VISTA NEGATIVE (< 25 ng/mL); THC Urine VISTA NEGATIVE (< 50 ng/mL); Vista UDS pH Range 5
[2020-06-18 18:49] LABS: Anion Gap 7 (5-15); BUN 20 mg/dL (7-18); BUN/Creat Ratio 18.3 RATIO (10-20); Calcium,Total 9.4 mg/dL (8.5-10.1); Chloride 109 mmol/L (98-107); Creatinine, Serum 1.09 mg/dL (0.70-1.30); EST Glomerular Filtration Rate 79 mL/min (>60); Est Glom Filt Rate - Afr Amer 95 mL/min (>60); Estimated Creatinine Clearance 89.19 ml/min; Glucose 94 mg/dL (74-106); Potassium 3.9 mmol/L (3.5-5.1); Sodium Level 141 mmol/L (136-145); Thyroid Stim Hormone (TSH) 1.17 uIU/mL (0.358-3.74)
--- NOTE | 2020-06-18 18:56 | CM.ED ---
Social Work Consult: Suicidal Informant: Dr. Seay Patient with no active insurance. Crisis to evaluate. Medical team updated to call crisis when patient is medically cleared. Alyssa Collins MSW, ERICK
[2020-06-18] MEDS: Acetaminophen 500 MG Tablet 1000 MG PO (19:33)
[2020-06-18] MEDS: traZODone 50 MG Tablet PO (22:21)
[2020-06-18] MEDS: busPIRone 15 MG TABLET PO (22:21)
[2020-06-19] VITALS (18 sets, daily range): BP systolic 108–159; BP diastolic 71–99; PULSE 86–94; RESP 14–20; TEMP 36.3; O2SAT 98–100
[2020-06-19] MEDS: Levothyroxine 112 MCG Tablet PO (05:38)
[2020-06-19] MEDS: LORazepam 1 MG Tablet PO ×2 (06:23→16:28)
--- NOTE | 2020-06-19 06:43 | ED.RN ---
[facility] is currently working on placement for patient
[2020-06-19] MEDS: busPIRone 15 MG TABLET PO (10:51)
[2020-06-19] MEDS: ARIPiprazole 5 MG Tablet PO (10:51)
--- NOTE | 2020-06-19 10:58 | NURSING ---
CALLED CRISIS AGAIN. DENISE IS STILL NO AVAILABLE
--- NOTE | 2020-06-19 10:58 | NURSING ---
1010 CALLED CRISIS. DENISE IS ON, SHE IS BUSY
--- NOTE | 2020-06-19 11:10 | NURSING ---
DENISE, ARNIE, CALLED BACK. SHE'S WAITING TO HEAR BACK FROM [facility]
--- NOTE | 2020-06-19 12:30 | CM.ED ---
SOCIAL WORK Assisted patient in contacting [place] [employer] to reapply for Medicaid. Registration checked Medicaid and patient is eligible. Contacted Crisis to update patient has active Medicaid. This worker to continue to assist Crisis with placement as per Erica, limited staff available. Selina Avery MSW, LITHOGRAPHIC RETOUCHER APPRENTICE
--- NOTE | 2020-06-19 12:35 | CM.ED ---
SOCIAL WORK Discussed case with medical team. Will need COVID-19 test completed for placement. Selina Avery, DIESEL ENGINEER, PARARESCUE MANAGER
--- NOTE | 2020-06-19 13:50 | CM.ED ---
SOCIAL WORK This worker contacted [facility] and [place]. Per s iron worker at [facility], there are patients up for discharge and will review referral after 4pm today. Per s iron worker at [place], does have beds available and request referral once result of COVID test is back. Staff mary. Selina Avery MSW, PHOTOGRAMMETRIC TECH
--- NOTE | 2020-06-19 15:37 | CM.ED ---
Addendum entered by Chelly Avery 06/19/20 15:40: Crisis updated on this worker's efforts to assist with placement. Original Note: SOCIAL WORK Referral faxed and called to Anni at [facility]. Anni reports [facility] will review referral and get back to this worker. Selina Avery, PRODUCT SUPPORT TECHNICIAN, TIME STUDY OBSERVER
[2020-06-19] MEDS: Ibuprofen 600 MG Tablet PO (16:29)
--- NOTE | 2020-06-19 17:28 | CM.ED ---
SOCIAL WORK Call to [facility] to follow up on referral. demurrage worker states will review and get back to this worker. Selina Avery, BENCH ASSEMBLER OPERATOR, WHIPPED TOPPING SUPERVISOR
--- NOTE | 2020-06-19 18:37 | EKG12_ITS ---
Test Reason : MENTAL HEALTH Blood Pressure : / mmHG Vent. Rate : 099 BPM Atrial Rate : 099 BPM P-R Int : 168 ms QRS Dur : 088 ms QT Int : 358 ms P-R-T Axes : 022 073 027 degrees QTc Int : 459 ms Normal sinus rhythm Normal ECG Confirmed by VALERIA LANDRUM, LUIS ([id number]), editor school photograph BECKY MILLER ([id number]) on 06/24/2020 12:52:15 PM Referred By: TE Confirmed By:LUIS SHAW MD
--- NOTE | 2020-06-19 18:54 | CM.ED ---
SOCIAL WORK EKG and updated physician note for medical clearance faxed to [place] per request. Selina Avery, ORACLE DATABASE ARCHITECT, CLEANER FURNITURE
--- NOTE | 2020-06-19 20:11 | CM.ED ---
SOCIAL WORK Patient accepted to [facility] [address] Nurse to call report to . [facility] to set up transport. [place] [facility] faxed per request. Call to Crisis to update on placement, spoke with Sue. Selina Avery, LEATHER GOODS I ASSEMBLER, PLODDING OPERATOR
== END 2020-06-19 22:55 ==
PROVIDERS: Emergency Medicine; Emergency Provider Emergency Medicine; PCP Family Medicine
DX: F31.9 Bipolar disorder, unspecified (principal); R45.851 Suicidal ideations; R51 Headache; I10 Essential (primary) hypertension; E03.9 Hypothyroidism, unspecified; E78.5 Hyperlipidemia, unspecified; F41.9 Anxiety disorder, unspecified; F17.200 Nicotine dependence, unspecified, uncomplicated; Z79.899 Other long term (current) drug therapy
CPT/HCPCS: 80048; 80307; 80320; 84443; 85025; 87635; 93005; 99285; C9803; G0480; U0003

== ENCOUNTER 2020-07-20 21:41 | Emergency (ER) | payer MEDICAID, SELFPAY ==
[2020-06-18 17:45] VITALS: BMI 32.5
[2020-07-20 21:42] VITALS: BP 150/80; PULSE 117; PULSE 118; RESP 18; TEMP 36.4; O2SAT 97; BMI 35.2
[2020-07-20 22:19] LABS: Absolute Lymphocyte Count 2.52 X10^3/uL (0.83-4.51); Absolute Neutrophil Count 8.4 X10^3/uL (2.0-7.7); Basophil# 0.07 X10^3/uL; Basophil% 0.6 % (0-1); Eosinophil# 0.31 X10^3/uL; Eosinophils% 2.5 % (0-5); Hematocrit 42.2 % (40-54); Hemoglobin 13.7 g/dL (13.0-16.5); Lymphocyte # 2.52 X10^3/ul (4.0); Lymphocyte % 20.6 % (19-41); Mean Corp Hgb Conc 32.5 g/dL (32-36); Mean Corpuscular Hgb 30.4 pg (27.0-32.0); Mean Corpuscular Volume 93.6 fL (80-94); Mean Platelet Vol. 9.3 fl (6.2-12.0); Monocyte# 0.81 X10^3/uL; Monocyte% 6.6 % (0-10); NRBC Flagged by Analyzer 0 % (0-5); Neutrophil # 8.37 X10^3/uL (2.7-7.7); Neutrophil % 68.5 % (47-70); Platelet Count 293 K/mm3 (150-450); RBC Distribution Width CV 13.3 % (11.6-14.6); RBC Distribution Width SD 45.6 fl (35.1-43.9); Red Blood Count 4.51 M/mm3 (4.6-6.2); White Blood Count 12.2 K/mm3 (4.4-11.0)
[2020-07-20 22:32] LABS: Amphetamine Urine VISTA NEGATIVE (<1000 ng/mL); Barbiturate Urine VISTA NEGATIVE (< 200 ng/mL); Benzodiazepine Urine VISTA NEGATIVE (< 200 ng/mL); Cocaine Urine VISTA NEGATIVE (< 300 ng/mL); Ecstacy Urine VISTA NEGATIVE (< 500 ng/mL); Methadone Urine VISTA NEGATIVE (< 300 ng/mL); PCP Urine VISTA NEGATIVE (< 25 ng/mL); THC Urine VISTA NEGATIVE (< 50 ng/mL); Vista UDS pH Range 7
[2020-07-20 22:33] LABS: Anion Gap 9 (5-15); BUN 16 mg/dL (7-18); BUN/Creat Ratio 14.3 RATIO (10-20); Calcium,Total 8.8 mg/dL (8.5-10.1); Chloride 106 mmol/L (98-107); Creatinine, Serum 1.12 mg/dL (0.70-1.30); EST Glomerular Filtration Rate 76 mL/min (>60); Est Glom Filt Rate - Afr Amer 93 mL/min (>60); Estimated Creatinine Clearance 85.92 ml/min; Glucose 117 mg/dL (74-106); Potassium 3.6 mmol/L (3.5-5.1); Sodium Level 138 mmol/L (136-145)
[2020-07-20 22:42] VITALS: RESP 18
--- NOTE | 2020-07-20 23:08 | ED.RN ---
NOTIFIED CRISIS THIS PT IS READY TO BE SEEN, REPORT WAS FAXED TO THE NUMBER REQUESTED
[2020-07-20 23:42] VITALS: RESP 18
[2020-07-21] VITALS (8 sets, daily range): BP systolic 125–160; BP diastolic 81–92; PULSE 89; RESP 16–18; O2SAT 95–97
--- NOTE | 2020-07-21 00:30 | ED.VISSUMM ---
- ER Visit Summary Date of Service: 07/21/20 Chief Complaint: Suicidal ideation History of Present Illness: The patient is a [address] Perdomo in the counseling center. He is on lithium, Lexapro, clonazepam and reports that he is taking his medications. Despite this he has had increasing suicidal thoughts for the past week. He states that he has a plan to shoot himself. He denies any other complaints. Physical Examination: Vitals: Stable. Afebrile. General: Well-nourished and well-developed. Head: Normocephalic atraumatic. Neck: Supple, no lymphadenopathy. No JVD. Nontender. Cardiovascular: Regular rate and rhythm. No murmurs. Respiratory: No respiratory distress. Clear to auscultation bilaterally. Abdominal: Soft, nontender, nondistended, normal bowel sounds. No guarding, rebound, or peritoneal signs. Back: Nontender. Extremities: Nontender, no edema. Skin: Normal color, no rash. Neurologic: Alert and oriented ?3. Cranial nerves II through XII are intact. Normal strength and sensation. Mental status exam: Patient appears their stated age. Good posture and grooming. Good eye contact. Normal rate, volume, and latency of speech. No homicidal ideation. No auditory or visual hallucinations. Flow of thought is logical. Insight and judgment is fair. Test Results: CBC shows a white count of 12.2 with immature granulocytes 1.2%. Chem-7 shows a glucose 117. [place] level is 0.8. Talk screen is negative. Alcohol is 76. Emergency Department Course and Treatment: Patient is resting comfortably. Treatment Plan: Patient is medically cleared. He will be discussed with the counseling center for transfer. Disposition: [] Impression: 1. Suicidal ideation. This note was generated with [employer] dictation software. It may contain incorrect words, spelling, and punctuation that were not noted in review of the chart prior to signing ED Disposition - Plan for ED Patient: Referrals: Tristan Perdomo MD [Primary Care Provider] -
--- NOTE | 2020-07-21 07:37 | ED.RN ---
REPORT TO DELORES RN AT [facility]. DELORES CONCERNED ABOUT PT'S BP, DR. ULLOA AWARE AND NO ORDERS RECEIVED. CURRENTLY AWAITING TRANSPORTATION.
--- NOTE | 2020-07-21 08:10 | ED.RN ---
PT OUT OF ED WITH [facility] FOR TRANSPORT TO [facility]. PT SKIN P/W/D, RESP EVEN AND UNLABORED, PT A&O X 3, NO DISTRESS NOTED.
== END 2020-07-21 08:10 ==
PROVIDERS: Emergency Provider Emergency Medicine; PCP Family Medicine
DX: F32.9 Major depressive disorder, single episode, unspecified (principal); R45.851 Suicidal ideations; F20.9 Schizophrenia, unspecified; R51.9 Headache, unspecified; Z79.899 Other long term (current) drug therapy
CPT/HCPCS: 36415; 80048; 80178; 80307; 80320; 85025; 99284; G0480

== ENCOUNTER 2020-07-30 23:44 | Emergency (ER) | payer MEDICAID, SELFPAY ==
[2020-07-30 23:45] VITALS: BP 158/104; PULSE 86; RESP 15; TEMP 36.1; O2SAT 100; BMI 34.0
--- NOTE | 2020-07-31 00:07 | ED.VIS.GEN ---
History of Present Illness Chief Complaint: Suicidal Informant: Patient Onset: Weeks Context: Gradual Onset Current Severity: Moderate Maximum Severity: Moderate Narrative: Patient presents secondary to continued suicidality. He reports feeling suicidal for the past 6 weeks and hearing voices that are telling him to kill himself. He states his plan is to shoot himself with a gun. He does tell me that he has access to guns. He does admit to an attempt to kill himself in the past by overdosing on his lithium. - Past Medical History (1) Bipolar disorder Status: Chronic (2) Hyperlipidemia Status: Chronic (3) Hypertension Status: Chronic (4) Hypothyroidism Status: Chronic Past Medical History - Allergies and Home Meds Allergies/Adverse Reactions: Allergies No Known Allergies Allergy (Verified 07/30/20 23:47) Primary Care Physician: Tristan Perdomo MD [Primary Care Provider] - Prior records reviewed: Yes Surgical History: noncontributory Smoking Status: Former smoker - Family History Maternal Family History: Reports: No pertinent history Paternal Family History: Reports: No pertinent history Review of Systems General: Denies: Chills, Fever Eyes: Denies: Visual changes - bilaterally ENT: Denies: Bilateral ear pain Cardiovascular: Denies: Chest pain Respiratory: Denies: Dyspnea, Cough Gastrointestinal: Denies: Abdominal pain, Nausea, Vomiting, Diarrhea Genitourinary: Denies: Dysuria Musculoskeletal: Denies: Extremity Pain Skin: Denies: Rash Psych: Reports: Suicidal thoughts Hematologic: Denies: Easy bruising Allergy: Denies: Uticaria Physical Exam Vital Signs/Narrative: Vital Signs Temp Pulse Resp BP Pulse Ox 07/30/20 23:45 97.0 F L 86 15 158/104 H 100 Inital Vital Signs reviewed: Yes General: Well nourished, Well developed Head: Normocephalic ENT: Moist mucous membranes Neck: Supple Cardiovascular: Regular rate, Regular rhythm Respiratory: No distress, CTA bilaterally Abdomen: Soft, Nontender Back: Nontender Extremities: Nontender Skin: Normal color Neurological: Alert, Oriented x3, Normal Strength, Normal Sensation Psychological: - - Flat affect. Admits to suicidal ideation with plan. Diagnostic/Tx/Re-eval Laboratory Results 07/31/20 07/31/20 07/31/20 00:00 00:15 00:36 WBC 10.6 RBC 4.75 Hgb 14.4 Hct 45.7 MCV 96.2 H MCH 30.3 MCHC 31.5 L RDW Std Deviation 47.8 H RDW Coeff of Anastacio 13.4 Plt Count 280 MPV 9.3 Immature Gran % (Auto) 0.800 Neut % (Auto) 66.6 Lymph % (Auto) 21.6 [place] % (Auto) 7.9 Eos % (Auto) 2.6 Baso % (Auto) 0.5 Absolute Neuts (auto) 7.1 Absolute Lymphs (auto) 2.28 Nucleated RBC % 0 Sodium Potassium Chloride Carbon Dioxide Anion Gap BUN Creatinine Estim Creat Clear Calc Est GFR (MDRD) Af Amer Est GFR (MDRD) Non-Af BUN/Creatinine Ratio Glucose Calcium Urine Opiates Screen NEGATIVE Urine Methadone Screen NEGATIVE Ur Barbiturates Screen NEGATIVE Ur Phencyclidine Scrn NEGATIVE Ur Amphetamines Screen NEGATIVE U Methamphetamin-MDMA POSITIVE H U Benzodiazepines Scrn NEGATIVE [place] Urine Cocaine Screen NEGATIVE U Cannabinoids Screen NEGATIVE Ur Drug Screen Comment Ethyl Alcohol COVID-19 (RON) Not Detected 07/31/20 07/31/20 00:36 00:36 WBC RBC Hgb Hct MCV MCH MCHC RDW Std Deviation RDW Coeff of Anastacio Plt Count MPV Immature Gran % (Auto) Neut % (Auto) Lymph % (Auto) [place] % (Auto) Eos % (Auto) Baso % (Auto) Absolute Neuts (auto) Absolute Lymphs (auto) Nucleated RBC % Sodium 143 Potassium 4.1 Chloride 108 H Carbon Dioxide 30.0 Anion Gap 5 BUN 14 Creatinine 1.23 Estim Creat Clear Calc 80.78 Est GFR (MDRD) Af Amer 83 Est GFR (MDRD) Non-Af 69 BUN/Creatinine Ratio 11.4 Glucose 113 H Calcium 9.2 Urine Opiates Screen Urine Methadone Screen Ur Barbiturates Screen Ur Phencyclidine Scrn Ur Amphetamines Screen U Methamphetamin-MDMA U Benzodiazepines Scrn [place] 0.80 Urine Cocaine Screen U Cannabinoids Screen Ur Drug Screen Comment Ethyl Alcohol 6.0 COVID-19 (RON) - Medical Decision Making Patient was evaluated by Jade from the counseling center. He voices to Jade that he was just discharged from [facility] yesterday. At discharge she told them that he was still having suicidal thoughts but they discharged him anyway. Patient states that he is concerned that he is going to shoot himself with his father's gun. At this time she will look for placement for him. ED Disposition - Plan for ED Patient: Disposition: Psychiatric Hospital or Unit Diagnosis: Suicidal ideation Referrals: Tristan Perdomo MD [Primary Care Provider] -
[2020-07-31 00:26] LABS: Amphetamine Urine VISTA NEGATIVE (<1000 ng/mL); Barbiturate Urine VISTA NEGATIVE (< 200 ng/mL); Benzodiazepine Urine VISTA NEGATIVE (< 200 ng/mL); Cocaine Urine VISTA NEGATIVE (< 300 ng/mL); Ecstacy Urine VISTA POSITIVE (< 500 ng/mL); Methadone Urine VISTA NEGATIVE (< 300 ng/mL); PCP Urine VISTA NEGATIVE (< 25 ng/mL); THC Urine VISTA NEGATIVE (< 50 ng/mL); Vista UDS pH Range 5
[2020-07-31 00:45] LABS: Absolute Lymphocyte Count 2.28 X10^3/uL (0.83-4.51); Absolute Neutrophil Count 7.1 X10^3/uL (2.0-7.7); Basophil# 0.05 X10^3/uL; Basophil% 0.5 % (0-1); Eosinophil# 0.27 X10^3/uL; Eosinophils% 2.6 % (0-5); Hematocrit 45.7 % (40-54); Hemoglobin 14.4 g/dL (13.0-16.5); Lymphocyte # 2.28 X10^3/ul (4.0); Lymphocyte % 21.6 % (19-41); Mean Corp Hgb Conc 31.5 g/dL (32-36); Mean Corpuscular Hgb 30.3 pg (27.0-32.0); Mean Corpuscular Volume 96.2 fL (80-94); Mean Platelet Vol. 9.3 fl (6.2-12.0); Monocyte# 0.83 X10^3/uL; Monocyte% 7.9 % (0-10); NRBC Flagged by Analyzer 0 % (0-5); Neutrophil # 7.05 X10^3/uL (2.7-7.7); Neutrophil % 66.6 % (47-70); Platelet Count 280 K/mm3 (150-450); RBC Distribution Width CV 13.4 % (11.6-14.6); RBC Distribution Width SD 47.8 fl (35.1-43.9); Red Blood Count 4.75 M/mm3 (4.6-6.2); White Blood Count 10.6 K/mm3 (4.4-11.0)
[2020-07-31 00:59] LABS: Anion Gap 5 (5-15); BUN 14 mg/dL (7-18); BUN/Creat Ratio 11.4 RATIO (10-20); Calcium,Total 9.2 mg/dL (8.5-10.1); Chloride 108 mmol/L (98-107); Creatinine, Serum 1.23 mg/dL (0.70-1.30); EST Glomerular Filtration Rate 69 mL/min (>60); Est Glom Filt Rate - Afr Amer 83 mL/min (>60); Estimated Creatinine Clearance 80.78 ml/min; Glucose 113 mg/dL (74-106); Potassium 4.1 mmol/L (3.5-5.1); Sodium Level 143 mmol/L (136-145)
[2020-07-31 01:00] VITALS: RESP 18
[2020-07-31 02:00] VITALS: RESP 17
[2020-07-31 03:00] VITALS: RESP 18
[2020-07-31 04:51] VITALS: BP 153/82; PULSE 93; RESP 17; O2SAT 95
--- NOTE | 2020-07-31 04:58 | EKG12_ITS ---
Test Reason : MHC Blood Pressure : / mmHG Vent. Rate : 093 BPM Atrial Rate : 093 BPM P-R Int : 174 ms QRS Dur : 100 ms QT Int : 382 ms P-R-T Axes : 035 030 033 degrees QTc Int : 474 ms Normal sinus rhythm Normal ECG Confirmed by RAPHAEL LANDRUM, JOSÉ MIGUEL ([id number]), assignment editor BECKY MILLER ([id number]) on 08/05/2020 11:56:15 AM Referred By: BABITA Confirmed By:JOSÉ MIGUEL LIM MD
[2020-07-31 05:00] VITALS: RESP 17
[2020-07-31 05:18] LABS: CPK Total, Creatine Kinase 103 U/L (39-308)
[2020-07-31] MEDS: Levothyroxine 112 MCG Tablet PO (06:21)
[2020-07-31] MEDS: clonazePAM 0.5 MG Tablet PO (06:21)
--- NOTE | 2020-07-31 06:54 | NURSING ---
CALLED SQUAD. ETA IS 30 MIN
[2020-07-31 06:58] VITALS: BP 153/82; PULSE 93; RESP 17; TEMP 36.1; O2SAT 95
== END 2020-07-31 07:45 ==
PROVIDERS: Emergency Provider Emergency Medicine; PCP Family Medicine
DX: R45.851 Suicidal ideations (principal); F31.9 Bipolar disorder, unspecified; I10 Essential (primary) hypertension; E78.5 Hyperlipidemia, unspecified; E03.9 Hypothyroidism, unspecified; Z79.899 Other long term (current) drug therapy; Z87.891 Personal history of nicotine dependence
CPT/HCPCS: 36415; 80048; 80178; 80307; 80320; 82550; 85025; 87635; 93005; 99284; G0480; U0003

== ENCOUNTER 2020-08-16 19:05 | Emergency (ER) | payer MEDICAID, SELFPAY ==
[2020-08-16 19:06] VITALS: BP 128/80; PULSE 103; RESP 17; TEMP 36; O2SAT 97; BMI 34.0
--- NOTE | 2020-08-16 19:56 | CT_ITS ---
STUDY: CT BRAIN WITHOUT CONTRAST REASON FOR EXAM: Male, 40 years old. Multiple seizures. Patient became suicidal. History of bipolar disease and left amphetamine abuse. RADIATION DOSAGE (If Supplied By Facility): CTDIvol = (44.99 ) mGy, DLP = ( 829.85 ) mGycm TECHNIQUE: Transaxial CT imaging of the brain was performed without administration of intravenous contrast material. Individualized dose optimization techniques were used for this CT. COMPARISON: 05/19/2020. FINDINGS: Normal soft tissue structures. Normal calvarium. Normal size ventricles and extra-axial spaces for the patient''s age. Normal white matter tracts of the cerebral hemispheres. Normal basal ganglia and thalami. Normal brainstem. Normal cerebellum. There is no intracranial hemorrhage. There are no findings of an acute ischemic infarction. Normal visualized paranasal sinuses. CT/Brain/Head without Contrast IMPRESSION: Normal unenhanced CT scan of the brain. There is no interval change. Electronically Signed: Praful Dave DO at 20:41 EST Tel [phone], Service support ,
--- NOTE | 2020-08-16 19:56 | EKG12_ITS ---
Test Reason : MHC Blood Pressure : / mmHG Vent. Rate : 085 BPM Atrial Rate : 085 BPM P-R Int : 182 ms QRS Dur : 100 ms QT Int : 382 ms P-R-T Axes : 002 014 017 degrees QTc Int : 454 ms Normal sinus rhythm Normal ECG Confirmed by RAPHAEL LANDRUM, JOSÉ MIGUEL ([id number]), make up editor LIBBY MCCARTHY ([id number]) on 08/19/2020 2:17:42 PM Referred By: MR Confirmed By:JOSÉ MIGUEL LIM MD
[2020-08-16 20:09] VITALS: RESP 18
[2020-08-16 20:18] LABS: Absolute Lymphocyte Count 1.67 X10^3/uL (0.83-4.51); Absolute Neutrophil Count 9.6 X10^3/uL (2.0-7.7); Basophil# 0.02 X10^3/uL; Basophil% 0.2 % (0-1); Eosinophil# 0.06 X10^3/uL; Eosinophils% 0.5 % (0-5); Hematocrit 42.8 % (40-54); Hemoglobin 14.3 g/dL (13.0-16.5); Lymphocyte # 1.67 X10^3/ul (4.0); Lymphocyte % 13.8 % (19-41); Mean Corp Hgb Conc 33.4 g/dL (32-36); Mean Corpuscular Hgb 30.6 pg (27.0-32.0); Mean Corpuscular Volume 91.5 fL (80-94); Mean Platelet Vol. 9.1 fl (6.2-12.0); Monocyte# 0.73 X10^3/uL; NRBC Flagged by Analyzer 0 % (0-5); Neutrophil # 9.62 X10^3/uL (2.7-7.7); Neutrophil % 79.2 % (47-70); Platelet Count 258 K/mm3 (150-450); RBC Distribution Width CV 12.5 % (11.6-14.6); RBC Distribution Width SD 41.8 fl (35.1-43.9); Red Blood Count 4.68 M/mm3 (4.6-6.2); White Blood Count 12.1 K/mm3 (4.4-11.0)
[2020-08-16 20:44] LABS: Anion Gap 9 (5-15); BUN 15 mg/dL (7-18); BUN/Creat Ratio 14.3 RATIO (10-20); Calcium,Total 8.7 mg/dL (8.5-10.1); Chloride 106 mmol/L (98-107); Creatinine, Serum 1.05 mg/dL (0.70-1.30); EST Glomerular Filtration Rate 82 mL/min (>60); Est Glom Filt Rate - Afr Amer 100 mL/min (>60); Estimated Creatinine Clearance 91.65 ml/min; Glucose 88 mg/dL (74-106); Potassium 3.6 mmol/L (3.5-5.1); Sodium Level 138 mmol/L (136-145)
[2020-08-16 21:09] VITALS: RESP 17
--- NOTE | 2020-08-16 21:14 | ED.RN ---
lactic 2.[address] herrera
[2020-08-16 21:58] LABS: Amphetamine Urine VISTA NEGATIVE (<1000 ng/mL); Barbiturate Urine VISTA NEGATIVE (< 200 ng/mL); Benzodiazepine Urine VISTA NEGATIVE (< 200 ng/mL); Cocaine Urine VISTA NEGATIVE (< 300 ng/mL); Ecstacy Urine VISTA POSITIVE (< 500 ng/mL); Methadone Urine VISTA NEGATIVE (< 300 ng/mL); PCP Urine VISTA NEGATIVE (< 25 ng/mL); THC Urine VISTA NEGATIVE (< 50 ng/mL); Vista UDS pH Range 5
--- NOTE | 2020-08-16 22:22 | ED.DCSUM_ITS ---
History of Present Illness Chief Complaint: Suicidal Narrative: Patient presenting for evaluation secondary to potential seizures as well as suicidal ideation. Patient has an underlying psych history. He also tells me that he had a history of seizures in the past which he had an extensive work- up and is not on seizure medications. Patient was recently admitted to the hospital secondary to suicidal ideation and was discharged. He states that recently he has been having more of the seizure episodes. He states that he is awake throughout the entire to the episode, and he will have shaking, occasionally he will hit his head, and he states that because of these episodes he has becoming more suicidal. He denies that he has a plan. Denies any hearing any voices. He denies any changes in his medications recently. No recent illnesses. Review of systems otherwise negative. Past Medical History - Allergies and Home Meds Allergies/Adverse Reactions: Allergies No Known Allergies Allergy (Verified 08/16/20 19:06) Primary Care Physician: Tristan Perdomo MD [Primary Care Provider] - Prior records reviewed: Yes Past Medical History: - - Prior psyc hx Surgical History: noncontributory Smoking Status: Former smoker - Family History Maternal Family History: Reports: No pertinent history Paternal Family History: Reports: No pertinent history Review of Systems All systems negative except as indicated General: Denies: Chills, Fever, Sweats Eyes: Denies: Visual changes - bilaterally, Diplopia ENT: Denies: Rhinorrhea, Sore throat Cardiovascular: Denies: Chest pain, Palpitations Respiratory: Denies: Dyspnea, Cough, Dyspnea on exertion Gastrointestinal: Denies: Abdominal pain, Nausea, Vomiting, Diarrhea, Melena, Hematochezia Genitourinary: Denies: Dysuria, Hematuria, Frequency Musculoskeletal: Denies: Back pain, Extremity Pain Skin: Denies: Rash, Wounds Neurological: Reports: - - seizures Psych: Reports: Suicidal thoughts Physical Exam Vital Signs/Narrative: Vital Signs Temp Pulse Resp BP Pulse Ox 08/16/20 21:09 17 08/16/20 20:09 18 08/16/20 19:06 96.8 F L 103 H 17 128/80 H 97 Inital Vital Signs reviewed: Yes General: Well nourished, Well developed, No Acute Distress Head: Normocephalic, Atraumatic Eyes: Perrl, EOMI ENT: Moist mucous membranes, No rhinorrhea Neck: Supple, Nontender Cardiovascular: Regular rate, Regular rhythm, No murmurs Respiratory: No distress, CTA bilaterally, Chest nontender Abdomen: Soft, Nontender, Nondistended, Normal bowel sounds Back: Nontender, Normal Inspection Extremities: Nontender, No edema Skin: Normal color, No rash Neurological: Alert, Oriented x3, Cranial nerves II-XII grossly intact, Normal Strength, Normal Sensation Psychological: - - Somewhat of a flat affect, patient endorses being suicidal Diagnostic/Tx/Re-eval Clinical Impression(s) from Imaging Studies Brain CT 08/16/20 19:56 IMPRESSION: Normal unenhanced CT scan of the brain. There is no interval change. Electronically Signed: Praful Dave DO at 20:41 EST Tel [phone], Service support , Laboratory Data 08/16/20 08/16/20 08/16/20 20:06 20:06 20:06 WBC 12.1 H RBC 4.68 Hgb 14.3 Hct 42.8 MCV 91.5 MCH 30.6 MCHC 33.4 RDW Std Deviation 41.8 RDW Coeff of Anastacio 12.5 Plt Count 258 MPV 9.1 Immature Gran % (Auto) 0.300 Neut % (Auto) 79.2 H Lymph % (Auto) 13.8 L [place] % (Auto) 6.0 Eos % (Auto) 0.5 Baso % (Auto) 0.2 Absolute Neuts (auto) 9.6 H Absolute Lymphs (auto) 1.67 Nucleated RBC % 0 Sodium 138 Potassium 3.6 Chloride 106 Carbon Dioxide 23.0 Anion Gap 9 BUN 15 Creatinine 1.05 Estim Creat Clear Calc 91.65 Est GFR (MDRD) Af Amer 100 Est GFR (MDRD) Non-Af 82 BUN/Creatinine Ratio 14.3 Glucose 88 Lactic Acid Calcium 8.7 Urine Opiates Screen Urine Methadone Screen Ur Barbiturates Screen Ur Phencyclidine Scrn Ur Amphetamines Screen U Methamphetamin-MDMA U Benzodiazepines Scrn [place] Urine Cocaine Screen U Cannabinoids Screen Ur Drug Screen Comment Ethyl Alcohol 53.0 08/16/20 08/16/20 08/16/20 20:06 20:06 21:05 WBC RBC Hgb Hct MCV MCH MCHC RDW Std Deviation RDW Coeff of Anastacio Plt Count MPV Immature Gran % (Auto) Neut % (Auto) Lymph % (Auto) [place] % (Auto) Eos % (Auto) Baso % (Auto) Absolute Neuts (auto) Absolute Lymphs (auto) Nucleated RBC % Sodium Potassium Chloride Carbon Dioxide Anion Gap BUN Creatinine Estim Creat Clear Calc Est GFR (MDRD) Af Amer Est GFR (MDRD) Non-Af BUN/Creatinine Ratio Glucose Lactic Acid 2.0 Calcium Urine Opiates Screen NEGATIVE Urine Methadone Screen NEGATIVE Ur Barbiturates Screen NEGATIVE Ur Phencyclidine Scrn NEGATIVE Ur Amphetamines Screen NEGATIVE U Methamphetamin-MDMA POSITIVE H U Benzodiazepines Scrn NEGATIVE [place] 0.80 Urine Cocaine Screen NEGATIVE U Cannabinoids Screen NEGATIVE Ur Drug Screen Comment Ethyl Alcohol - EKG Initial EKG Interpretation: - - Sinus rhythm [address] segments normal T waves normal MI and QTc intervals no evidence of acute ischemia or arrhythmia - Medical Decision Making Patient presented secondary to potential seizures and suicidal ideation. Seizure work-up was negative including CT of the head, EKG, lab work. Patient was noted to be positive for MDMA on his tox screen. Patient reports that he is conscious throughout the seizures and given the fact that he had a negative w ork-up in the past there is a high likelihood that these are nonepileptogenic or pseudoseizures. Patient was medically cleared for evaluated and shown by crisis ED Disposition - Plan for ED Patient: Diagnosis: Depression, Pseudoseizure
[2020-08-16 22:27] VITALS: RESP 18
[2020-08-16 23:55] VITALS: BP 118/80; PULSE 85; RESP 18; O2SAT 100
[2020-08-17] VITALS (8 sets, daily range): BP systolic 140; BP diastolic 99; PULSE 70; RESP 15–18; TEMP 36.8; O2SAT 98
[2020-08-17 00:11] LABS: Reflex Lactate? Y
--- NOTE | 2020-08-17 00:33 | ED.RN ---
HOLD REDRAW OF LACTIC ACID PER .
[2020-08-17] MEDS: MELATONIN 3 MG TABLET PO (00:52)
--- NOTE | 2020-08-17 01:38 | ED.RN ---
THIS RN SPOKE WITH CRISIS COUNSELOR DENISE. DENISE REPORTS SHE IS GOING TO TRY AND FIND PLACEMENT FOR PT [facility]. [facility]. MARIE VERBALLY AGREES WITH CRISIS'S PLAN VIA PHONE CALL. MICHELLE MORGAN INFORMED ALSO.
[2020-08-17 02:44] LABS: CPK Total, Creatine Kinase 96 U/L (39-308)
[2020-08-17 04:26] LABS: Probe Check PASS; Specimen Processing Control PASS
--- NOTE | 2020-08-17 07:34 | NURSING ---
CALLED SQUAD. ETA IS [phone] [place]
--- NOTE | 2020-08-17 08:42 | NURSING ---
0810: Attempted to call report to provided RN report number. No answer x2 attempts. Called advice nurse and spoke with Flaca that stated she would have the nurse call for report. 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
== END 2020-08-17 09:06 ==
LOC: ED 20:06
PROVIDERS: Emergency Medicine; Emergency Provider Emergency Medicine; PCP Family Medicine
DX: F32.9 Major depressive disorder, single episode, unspecified (principal); F44.5 Conversion disorder with seizures or convulsions; R45.851 Suicidal ideations; Z79.899 Other long term (current) drug therapy; Z87.891 Personal history of nicotine dependence
CPT/HCPCS: 70450; 80048; 80178; 80307; 80320; 82550; 83605; 85025; 87635; 93005; 99283; G0480; U0002

== ENCOUNTER 2020-08-28 18:07 | Emergency (ER) | payer MEDICAID, SELFPAY ==
[2020-08-28 18:08] VITALS: BP 154/96; PULSE 83; RESP 18; TEMP 35; O2SAT 100; BMI 29.5
--- NOTE | 2020-08-28 18:13 | CM.ED ---
Social Work Telephone call from Harriett Avila. Harriett reports to be looking into possible options further in regards to being able to accept patient. Harriett to get back to this social economist within the hour. Alyssa Collins MSW, PAM
[2020-08-28 19:02] LABS: Absolute Lymphocyte Count 1.42 X10^3/uL (0.83-4.51); Absolute Neutrophil Count 9.1 X10^3/uL (2.0-7.7); Basophil# 0.04 X10^3/uL; Basophil% 0.3 % (0-1); Eosinophil# 0.16 X10^3/uL; Eosinophils% 1.4 % (0-5); Hematocrit 45.2 % (40-54); Hemoglobin 14.8 g/dL (13.0-16.5); Lymphocyte # 1.42 X10^3/ul (4.0); Lymphocyte % 12.4 % (19-41); Mean Corp Hgb Conc 32.7 g/dL (32-36); Mean Corpuscular Hgb 30.6 pg (27.0-32.0); Mean Corpuscular Volume 93.4 fL (80-94); Mean Platelet Vol. 9.8 fl (6.2-12.0); Monocyte# 0.68 X10^3/uL; Monocyte% 5.9 % (0-10); NRBC Flagged by Analyzer 0 % (0-5); Neutrophil # 9.12 X10^3/uL (2.7-7.7); Neutrophil % 79.4 % (47-70); Platelet Count 265 K/mm3 (150-450); RBC Distribution Width CV 12.3 % (11.6-14.6); RBC Distribution Width SD 42.2 fl (35.1-43.9); Red Blood Count 4.84 M/mm3 (4.6-6.2); White Blood Count 11.5 K/mm3 (4.4-11.0)
[2020-08-28] MEDS: Ibuprofen 400 MG Tablet 800 MG PO (19:07)
[2020-08-28 19:11] LABS: Anion Gap 5 (5-15); BUN 14 mg/dL (7-18); BUN/Creat Ratio 13.6 RATIO (10-20); Calcium,Total 9.6 mg/dL (8.5-10.1); Chloride 105 mmol/L (98-107); Creatinine, Serum 1.03 mg/dL (0.70-1.30); EST Glomerular Filtration Rate 84 mL/min (>60); Est Glom Filt Rate - Afr Amer 102 mL/min (>60); Estimated Creatinine Clearance 93.43 ml/min; Glucose 100 mg/dL (74-106); Potassium 3.8 mmol/L (3.5-5.1); Sodium Level 139 mmol/L (136-145)
--- NOTE | 2020-08-28 19:15 | CM.ED ---
Social Work Consult: Suicidal Informant: Dr. Coleman Chief Complaint: Patient reports I am suicidal. Marital/Social History: Single Living Situation: Live with father, Ian Alfredo Support/Resources: Patient reports to be active with the counseling center and to follow with Dr. Liriano. History: None Education/Employment history: Denies issues with comprehension or understanding. Reports to currently be unemployed. Mental Health Treatment/History: Bi-polar, Panic Disorder. Patient reports to be compliant with medications for managing mental health. Patient reports history of inpatient psychiatric placement with last placement being [facility] and discharge today. Patient reports I thought I was going to be okay, but I am not. Triggers/Stressors: Patient reports the love of my life walked out on me. Patient reports girlfriend of 14 years left patient a few months ago. Coping Skills: Sleeping and watching T.V. Abuse Issues: Denies Substance Abuse Hx: Reports occasional tobacco use. Denies any other substance abuse/use. Risk to Self/Others: Patient reports active suicidal thoughts with multiple plans. Patient reports to have firearms in the home or to have thought about jumping in front of a bus or jumping off a bridge. Patient reports history of suicide attempt with last attempt being last summer when patient overdosed on medication. Patient denies thought so harming others. Patient reports history of punching self in the head when patient was younger. Mental Status Exam: A&Ox3 Appearance/General Behavior: Clean. Calm. Directable. Mood/Affect: Depressed. Communication Pattern: Responds to questions. Thought Process: Reports occasional auditory hallucinations. Denies visual hallucinations or paranoia. Judgement: Fair. Assessment: Met with patient in room. Introduced self and social problems specialist role. Patient agreeable to speak with this social problems specialist. This social problems specialist inquiring about possible outpatient services for patient. Patient is not able to contract for safety as patient states I am not safe to myself right now. Patient states to continue to have suicidal thoughts and be thinking more about how patient will complete suicide. Active support and listening provided. Updated Dr. Coleman on above. PLAN: Facilitate placement. PAM Smith
[2020-08-28 19:16] LABS: Amphetamine Urine VISTA NEGATIVE (<1000 ng/mL); Barbiturate Urine VISTA NEGATIVE (< 200 ng/mL); Benzodiazepine Urine VISTA NEGATIVE (< 200 ng/mL); Cocaine Urine VISTA NEGATIVE (< 300 ng/mL); Ecstacy Urine VISTA NEGATIVE (< 500 ng/mL); Methadone Urine VISTA NEGATIVE (< 300 ng/mL); PCP Urine VISTA NEGATIVE (< 25 ng/mL); THC Urine VISTA NEGATIVE (< 50 ng/mL); Vista UDS pH Range 6
[2020-08-28 19:18] LABS: Alcohol, Blood (Medical)-Serum < 3.0 mg/dL
--- NOTE | 2020-08-28 19:38 | CM.ED ---
Social Work Telephone call to [facility], admissions. Clinical information faxed. Pending review. Alyssa QUIROZ, PAM
[2020-08-28 20:00] VITALS: RESP 17
[2020-08-28 20:14] VITALS: BP 132/90; PULSE 71; RESP 17; TEMP 36.6; O2SAT 98
--- NOTE | 2020-08-28 20:29 | ED.VISSUMM ---
- ER Visit Summary Date of Service: 08/28/20 Chief Complaint: Suicidal ideation History of Present Illness: The patient is a [address] Perdomo and the counseling center. He reports he has had suicidal ideation on and off since the summer. He states that he was discharged from [facility] today and this got worse when he got home. He states that he has access to guns and knives. He also has a plan to step in front of a bus. Physical Examination: Vitals: Stable. Afebrile. General: Well-nourished and well-developed. Head: Normocephalic atraumatic. Neck: Supple, no lymphadenopathy. No JVD. Nontender. Cardiovascular: Regular rate and rhythm. No murmurs. Respiratory: No respiratory distress. Clear to auscultation bilaterally. Abdominal: Soft, nontender, nondistended, normal bowel sounds. No guarding, rebound, or peritoneal signs. Back: Nontender. Extremities: Nontender, no edema. Skin: Normal color, no rash. Neurologic: Alert and oriented ?3. Cranial nerves II through XII are intact. Normal strength and sensation. Mental status exam: Patient appears their stated age. Good posture and grooming. Good eye contact. Normal rate, volume, and latency of speech. No homicidal ideation. No auditory or visual hallucinations. Flow of thought is logical. Insight and judgment is fair. Test Results: CBC is remarkable for a white count of 11.5, 7 neutrophils 79, lymphocytes of 12. Chem-7 is normal. Talk screen and alcohol are normal. Covid is pending. Emergency Department Course and Treatment: Patient was treated with ibuprofen for headache. Treatment Plan: Patient was seen by case management. They have arranged for him to be transferred to a different psychiatric facility. Disposition: Transferred in stable condition. Impression: 1. Suicidal ideation. This note was generated with [employer] dictation software. It may contain incorrect words, spelling, and punctuation that were not noted in review of the chart prior to signing ED Disposition - Plan for ED Patient: Referrals: Tristan Perdomo MD [Primary Care Provider] -
[2020-08-28 20:46] LABS: Probe Check PASS; Specimen Processing Control PASS
--- NOTE | 2020-08-28 20:56 | CM.ED ---
Social Work Telephone call from [facility] [place]. Patient accepted by Timothy Royal to the Adult Unit. Nurse to call report to [phone]. Medical team and patient updated. [place] faxed to [facility]. Alyssa QUIROZ, PAM
[2020-08-28 21:44] VITALS: BP 121/81; PULSE 73; RESP 17; O2SAT 97
[2020-08-28 21:45] VITALS: BP 121/81; PULSE 73; RESP 17; TEMP 36.6; O2SAT 97
[2020-08-28 22:00] VITALS: RESP 18
== END 2020-08-28 22:14 ==
LOC: ED 18:43
PROVIDERS: Emergency Provider Emergency Medicine; PCP Family Medicine
DX: F31.9 Bipolar disorder, unspecified (principal); R45.851 Suicidal ideations; E05.00 Thyrotoxicosis with diffuse goiter without thyrotoxic crisis or storm; Z72.0 Tobacco use; Z79.899 Other long term (current) drug therapy
CPT/HCPCS: 80048; 80307; 80320; 85025; 87635; 99284; G0480; U0002

== ENCOUNTER 2020-09-03 18:49 | Emergency (ER) | payer MEDICAID, SELFPAY ==
[2020-09-03 18:52] VITALS: BP 162/85; PULSE 99; RESP 18; TEMP 36.6; O2SAT 97; BMI 35.8
--- NOTE | 2020-09-03 19:36 | ED.DCSUM_ITS ---
- ER Visit Summary Date of Service: 09/03/20 Chief Complaint: Suicidal ideation History of Present Illness: The patient is a 40 M presenting with suicidal ideation and hearing voices. Patient states he had suicidal ideation for the past several weeks. He was just discharged from [facility] today for similar comp laints. He states he was still suicidal when they discharged him and he is not sure why they discharged him. He was started on Zyprexa during that admission. He has had thoughts of jumping off a bridge, jumping into traffic and obtaining a gun. He has no current access to firearms. Denies alcohol or drug use. Physical Examination: Vitals are stable. Patient is afebrile. Alert no acute distress. HEENT exam is unremarkable. Neck is supple. Lungs are clear and equal bilaterally. Heart is regular rate and rhythm. Abdomen is soft nontender nondistended. Extremities are unremarkable. Skin is warm and dry. No focal neurologic deficit. Suicidal ideation Remainder of exam is unremarkable. Emergency Department Course and Treatment: CBC, chemistries unremarkable. Alcohol and tox are negative. [place] level 0.90. EKG is sinus rhythm rate of 78. Discussed with social work. Covid test was negative. Patient will be evaluated by the drug abuse social worker in the ED for placement. Disposition: Per social work Impression: Suicidal ideation This note was generated with [employer] dictation software. It may contain incorrect words, spelling, and punctuation that were not noted in review of the chart prior to signing ED Disposition - Plan for ED Patient: Referrals: Tristan Perdomo MD [Primary Care Provider] -
[2020-09-03] MEDS: Acetaminophen 500 MG Tablet 1000 MG PO (19:41)
[2020-09-03 19:46] LABS: Absolute Lymphocyte Count 1.86 X10^3/uL (0.83-4.51); Absolute Neutrophil Count 6.5 X10^3/uL (2.0-7.7); Basophil# 0.02 X10^3/uL; Basophil% 0.2 % (0-1); Eosinophil# 0.22 X10^3/uL; Eosinophils% 2.4 % (0-5); Hematocrit 44.3 % (40-54); Hemoglobin 14.2 g/dL (13.0-16.5); Lymphocyte # 1.86 X10^3/ul (4.0); Mean Corp Hgb Conc 32.1 g/dL (32-36); Mean Corpuscular Hgb 29.7 pg (27.0-32.0); Mean Corpuscular Volume 92.7 fL (80-94); Mean Platelet Vol. 9.4 fl (6.2-12.0); Monocyte# 0.72 X10^3/uL; Monocyte% 7.7 % (0-10); NRBC Flagged by Analyzer 0 % (0-5); Neutrophil # 6.47 X10^3/uL (2.7-7.7); Neutrophil % 69.4 % (47-70); Platelet Count 248 K/mm3 (150-450); RBC Distribution Width CV 12.3 % (11.6-14.6); RBC Distribution Width SD 42.5 fl (35.1-43.9); Red Blood Count 4.78 M/mm3 (4.6-6.2); White Blood Count 9.3 K/mm3 (4.4-11.0)
--- NOTE | 2020-09-03 19:56 | CM.ED ---
Social Work Consult: Suicidal Informant: Dr. Galarza Chief Complaint: Patient reports I am still suicidal. Patient states I don't think I can keep myself safe. Marital/Social History: Single Living Situation: Lives with father, Ian Alfredo Support/Resources: Active with the counseling center for psychiatrist, Dr. Liriano. History: None Education/Employment History: Unemployed. Denies any issues with comprehension or understanding. Mental Health Treatment/History: Bi-Polar, Panic Disorder. Patient with 18/29 on PHQ-9 questionnaire. Patient reports to be compliant with medications. Patient with history of inpatient psychiatric placement. Patient with last psychiatric placement around a week ago. Patient reports to have been discharged from the psychiatric hospital today. Patient states I thought I was going to be okay. Patient states to have gotten home and started to not feel safe. Triggers/Stressors: feeling hopeless. Coping Skills: Sleeping, Watching T.V. Goals: Patient wants to be able to get back to working and playing [employer] again. Abuse Issues: Denies Substance Abuse/Use: Occasional tobacco abuse. Denies other substance abuse/use. Risk to Self/Others: Patient reports active suicidal thoughts with plan to jump in front of a car. Patient denies attempt today but states I just don't feel safe, I am afraid of what I might do. Patient denies homicidal thoughts/plans/intents. Patient denies self harming behaviors. Mental Status Exam: A&Ox3 Appearance/General Behavior: Clean. Calm. Mood/Affect: Depressed. Flat. Communication Pattern: Responds to questions. Thought Process: Reports active auditory hallucinations. Patient states the voices tell me I am not suppose to be here and to kill myself. Judgement: Fair Assessment: Met with patient in room. Introduced self and social service agency director role. Patient agreeable to speaking with this social service agency director. Patient remembering this social service agency director from last interaction a week ago. Patient states I feel so hopeless. Patient states I am panicking. Active support and listening provided. Patient with active suicidal thoughts, auditory hallucinations, and plan to complete suicide. 1:[address]. Galarza on above assessment. PLAN: Will continue to follow for placement. Alyssa QUIROZ, PAM
[2020-09-03 20:01] LABS: Anion Gap 7 (5-15); BUN 18 mg/dL (7-18); Calcium,Total 9.3 mg/dL (8.5-10.1); Chloride 108 mmol/L (98-107); Creatinine, Serum 1.06 mg/dL (0.70-1.30); EST Glomerular Filtration Rate 81 mL/min (>60); Est Glom Filt Rate - Afr Amer 99 mL/min (>60); Estimated Creatinine Clearance 90.78 ml/min; Glucose 101 mg/dL (74-106); Potassium 3.9 mmol/L (3.5-5.1); Sodium Level 141 mmol/L (136-145)
[2020-09-03 20:02] LABS: Amphetamine Urine VISTA NEGATIVE (<1000 ng/mL); Barbiturate Urine VISTA NEGATIVE (< 200 ng/mL); Benzodiazepine Urine VISTA NEGATIVE (< 200 ng/mL); Cocaine Urine VISTA NEGATIVE (< 300 ng/mL); Ecstacy Urine VISTA NEGATIVE (< 500 ng/mL); Methadone Urine VISTA NEGATIVE (< 300 ng/mL); PCP Urine VISTA NEGATIVE (< 25 ng/mL); THC Urine VISTA NEGATIVE (< 50 ng/mL); Vista UDS pH Range 6
[2020-09-03 20:17] LABS: Alcohol, Blood (Medical)-Serum < 3.0 mg/dL
--- NOTE | 2020-09-03 20:33 | CM.ED ---
Social Work Telephone call to [facility], intake. Clinical information faxed. Pending review. Alyssa QUIROZ, PAM
--- NOTE | 2020-09-03 20:55 | EKG12_ITS ---
Test Reason : MENTAL HEALTH Blood Pressure : / mmHG Vent. Rate : 079 BPM Atrial Rate : 079 BPM P-R Int : 178 ms QRS Dur : 098 ms QT Int : 396 ms P-R-T Axes : 003 028 006 degrees QTc Int : 454 ms Sinus rhythm with Premature ventricular complexes or Fusion complexes Otherwise normal ECG Confirmed by VALERIA LANDRUM, LUIS ([id number]), material expeditor BECKY MILLER ([id number]) on 09/06/2020 10:59:40 AM Referred By: Confirmed By:LUIS SHAW MD
--- NOTE | 2020-09-03 22:04 | CM.ED ---
Social Work Telephone call from [facility]. Unable to accept due to insurance as patient was at [facility] less than 24hr ago. Bonnie recommending to referral to be made back to [facility]. Telephone call to [facility], intake. [facility] reports to not be able to accept patient back due to insurance. This web content & social media manager inquiring if patient it out of bed days. Intake reports that unable to accept back due to less than 24hr since last admission to [facility]. This web content & social media manager sharing above information from [facility] Hicks with [facility]. [facility] then states Let me check with my CNO. [facility] to call this web content & social media manager back. Alyssa Collins SUPPORT SPECIALIST, ERICK-S
--- NOTE | 2020-09-03 22:09 | CM.ED ---
Social Work [facility] called this manager social responsibility back, Deb. Deb reports to be able to review patient clinicals and will get back to this manager social responsibility. Clinical information faxed. Alyssa QUIROZ, PAM
[2020-09-03] MEDS: Lithium Carbonate 300mg Capsule 300 MG PO (23:09)
[2020-09-03] MEDS: busPIRone 15 MG TABLET PO (23:10)
[2020-09-03] MEDS: clonazePAM 0.5 MG Tablet PO (23:10)
[2020-09-03] MEDS: Atorvastatin Calcium 20 MG Tablet PO (23:10)
[2020-09-03] MEDS: traZODone 50 MG Tablet PO (23:10)
[2020-09-03] MEDS: Benztropine 2 MG Tablet 1 MG PO (23:11)
[2020-09-03 23:14] VITALS: BP 152/98; PULSE 87; RESP 18; O2SAT 99
[2020-09-03 23:33] VITALS: BP 152/98; PULSE 87; RESP 18; TEMP 36.6; O2SAT 99
[2020-09-04 00:03] VITALS: RESP 16
[2020-09-04 02:28] VITALS: RESP 16
[2020-09-04 03:05] VITALS: BP 130/95; PULSE 75; RESP 18; O2SAT 98
[2020-09-04 04:31] VITALS: RESP 16
== END 2020-09-04 04:31 ==
PROVIDERS: Emergency Provider Emergency Medicine; PCP Family Medicine
DX: R45.851 Suicidal ideations (principal); R44.0 Auditory hallucinations; Z20.828 Contact with and (suspected) exposure to other viral communicable diseases; E05.00 Thyrotoxicosis with diffuse goiter without thyrotoxic crisis or storm; Z72.0 Tobacco use; Z79.899 Other long term (current) drug therapy
CPT/HCPCS: 36415; 80048; 80178; 80307; 80320; 85025; 87426; 93005; 99285; G0480

== ENCOUNTER 2021-02-20 19:19 | Emergency (ER) | payer MEDICAID, SELFPAY ==
[2020-11-18 13:42] VITALS: BMI 35.8
[2021-02-20 19:21] VITALS: BP 177/104; PULSE 129; RESP 16; TEMP 36.7; O2SAT 97; BMI 40.4
[2021-02-20 20:12] LABS: Absolute Lymphocyte Count 1.92 X10^3/uL (0.83-4.51); Absolute Neutrophil Count 4.2 X10^3/uL (2.0-7.7); Basophil# 0.04 X10^3/uL; Basophil% 0.6 % (0-1); Eosinophil# 0.17 X10^3/uL; Eosinophils% 2.4 % (0-5); Lymphocyte # 1.92 X10^3/ul (0.83-4.51); Lymphocyte % 27.2 % (19-41); Mean Corp Hgb Conc 32.6 g/dL (32-36); Mean Corpuscular Hgb 30.6 pg (27.0-32.0); Mean Corpuscular Volume 94.1 fL (80-94); Mean Platelet Vol. 9.1 fl (6.2-12.0); Monocyte# 0.65 X10^3/uL; Monocyte% 9.2 % (0-10); NRBC Flagged by Analyzer 0 % (0-5); Neutrophil # 4.21 X10^3/uL (2.7-7.7); Neutrophil % 59.7 % (47-70); Platelet Count 274 K/mm3 (150-450); RBC Distribution Width CV 13.5 % (11.6-14.6); RBC Distribution Width SD 46.6 fl (35.1-43.9); Red Blood Count 4.57 M/mm3 (4.6-6.2); White Blood Count 7.1 K/mm3 (4.4-11.0)
[2021-02-20 20:25] LABS: Amphetamine Urine VISTA NEGATIVE (<1000 ng/mL); Barbiturate Urine VISTA NEGATIVE (< 200 ng/mL); Benzodiazepine Urine VISTA NEGATIVE (< 200 ng/mL); Cocaine Urine VISTA NEGATIVE (< 300 ng/mL); Ecstacy Urine VISTA NEGATIVE (< 500 ng/mL); Methadone Urine VISTA NEGATIVE (< 300 ng/mL); PCP Urine VISTA NEGATIVE (< 25 ng/mL); THC Urine VISTA NEGATIVE (< 50 ng/mL); Vista UDS pH Range 5
[2021-02-20 20:38] LABS: ALB/GLOB Ratio 1.1 RATIO (0.9-2.4); AST(SGOT) 24 U/L (15-37); Alanine Aminotransfer ALT/SGPT 50 U/L (16-61); Albumin, Serum 4.3 g/dL (3.2-5.0); Alkaline Phosphatase 75 U/L (45-117); Anion Gap 8 (5-15); BUN 16 mg/dL (7-18); BUN/Creat Ratio 14.4 RATIO (10-20); Calcium,Total 8.6 mg/dL (8.5-10.1); Chloride 107 mmol/L (98-107); Creatinine, Serum 1.11 mg/dL (0.70-1.30); EST Glomerular Filtration Rate 77 mL/min (>60); Est Glom Filt Rate - Afr Amer 93 mL/min (>60); Estimated Creatinine Clearance 89.51 ml/min; Globulin 3.9 g/dL (2.2-4.2); Glucose 115 mg/dL (74-106); Potassium 3.7 mmol/L (3.5-5.1); Protein, Total 8.2 g/dL (6.4-8.2); Sodium Level 138 mmol/L (136-145)
[2021-02-20 21:00] VITALS: RESP 16
[2021-02-20 22:00] VITALS: RESP 14
[2021-02-20 23:00] VITALS: BP 178/98; PULSE 78; RESP 16; RESP 18; O2SAT 99
[2021-02-21] VITALS (11 sets, daily range): BP systolic 119–164; BP diastolic 74–84; PULSE 62–104; RESP 15–18; TEMP 36.7; O2SAT 18–99
--- NOTE | 2021-02-21 00:52 | EX.ED.VIS.PS ---
HPI <Dr. Suhail Elias DO - Last Filed: 02/21/21 02:33> HPI - Psych History of Present Illness Chief Complaint: Mental Health Informant: patient Onset/Context/Timing Onset: Today Context: Sudden Onset Conflict: Family Timing: Continuous Associated Symptoms Associated Symptoms - Psych: Positive for Angry and Threatening; Negative for Paranoia, Visual Hallucinations and Auditory Hallucinations Narrative Narrative: Patient presents with homicidal ideations. Patient states he got into an argument with his father kayla. Patient states he has been having homicidal ideations towards his father. Patient denies any specific plan for homicide. Patient denies any suicidal ideations. Patient states he feels angry and agitated. Patient denies any visual or auditory hallucinations. PFSH <Dr. Suhail Elias DO - Last Filed: 02/21/21 02:33> PFSH Home Medications levothyroxine 125 mcg PO DAILY 03/31/17 [History Last Taken 4 Days Ago ~03/28/20] buspirone 15 mg PO BID 04/01/20 [History Last Taken 4 Days Ago ~03/28/20] trazodone 50 mg PO QHS PRN 05/19/20 [History Last Taken Unknown] atorvastatin 20 mg PO QHS 06/19/20 [History Last Taken Unknown] Clonazepam 0.5 mg PO TID 07/20/20 [History Last Taken Unknown] benztropine 1 mg PO BID 07/20/20 [History Last Taken Unknown] colchicine 0.6 mg PO DAILY 07/20/20 [History Last Taken Unknown] lithium carbonate 450 mg PO BID 07/20/20 [History Last Taken Unknown] olanzapine 10 mg PO DAILY 09/03/20 [History Last Taken Unknown] Allergy/AdvReac Type Severity Reaction Status Date / Time No Known Allergies Allergy Verified 02/20/21 19:25 no surgical history Social History Smoking Status: Current some day smoker ROS <Dr. Suhail Elias DO - Last Filed: 02/21/21 02:33> ROS ED Constitutional Constitutional ED: Denies chills or fever(s) Eyes Eyes: Denies blurry vision or change in vision ENT ENT ED: Denies rhinorrhea or sore throat Cardiovascular Cardiovascular: Denies chest pain or palpitations Respiratory/Chest Respiratory/Chest: Denies cough or dyspnea Gastrointestinal Gastrointestinal: Denies nausea or vomiting Genitourinary Genitourinary ED: Denies dysuria or hematuria Musculoskeletal Musculoskeletal: Denies back pain or neck pain Integumentary Denies abscess or rash Neurologic Neurologic: Denies headache(s) or weakness Psychiatric Psychiatric: Denies anxiety Allergic/Immunologic Allergic/Immunologic ED: Denies mouth swelling or urticaria EXAM <Dr. Suhail Elias, DO - Last Filed: 02/21/21 02:33> Physical Exam Const Vital Signs: 02/20/21 19:21 02/20/21 21:00 02/20/21 22:00 Temperature 98.1 F Temperature Source Temporal Pulse Rate 129 H Respiratory Rate 16 16 14 Blood Pressure 177/104 H Blood Pressure Mean 128 Pulse Ox 97 Oxygen Delivery Method 02/20/21 23:00 02/21/21 00:00 02/21/21 02:00 Temperature Temperature Source Pulse Rate 78 Respiratory Rate 18 16 16 Blood Pressure 178/98 H Blood Pressure Mean 124 Pulse Ox 99 Oxygen Delivery Method 02/21/21 03:00 02/21/21 04:00 02/21/21 05:00 Temperature Temperature Source Pulse Rate 104 H Respiratory Rate 18 16 Blood Pressure 164/78 H Blood Pressure Mean 106 Pulse Ox 99 18 Oxygen Delivery Method 02/21/21 06:00 02/21/21 07:24 Temperature Temperature Source Pulse Rate Respiratory Rate 16 16 Blood Pressure Blood Pressure Mean Pulse Ox Oxygen Delivery Method Room Air Positive well nourished, well developed, obese and unkempt General Appearance ED: unkempt, well developed and irritable Nutritional Appearance: obese HEENT normocephalic and atraumatic Neck supple and no JVD Resp normal respiratory effort and clear to auscultation bilaterally Cardio no murmurs Rate: regular rate Rhythm: regular rhythm GI non-tender and non-distended Auscultation: normoactive bowel sounds Palpation: soft Extremity normal to inspection General Extremety ED: Negative for edema or tenderness General Extremity: Negative for edema Neuro oriented x3, CN's II-XII intact bilaterally and no sensory deficits noted Sensorium / Orientation: alert Motor Exam: strength 5/5 throughout Psych mental status grossly normal Appearance: unkempt Attitude: evasive Speech: normal speech Mood & Affect: irritable Thought Content: No delusion(s) and No hallucination(s) Attention / Concentration: attention grossly intact Skin Rashes: no rashes <Dr. Isma Loving MD - Last Filed: 02/21/21 08:07> Physical Exam Const Vital Signs: 02/20/21 19:21 02/20/21 21:00 02/20/21 22:00 Temperature 98.1 F Temperature Source Temporal Pulse Rate 129 H Respiratory Rate 16 16 14 Blood Pressure 177/104 H Blood Pressure Mean 128 Pulse Ox 97 Oxygen Delivery Method 02/20/21 23:00 02/21/21 00:00 02/21/21 02:00 Temperature Temperature Source Pulse Rate 78 Respiratory Rate 18 16 16 Blood Pressure 178/98 H Blood Pressure Mean 124 Pulse Ox 99 Oxygen Delivery Method 02/21/21 03:00 02/21/21 04:00 02/21/21 05:00 Temperature Temperature Source Pulse Rate 104 H Respiratory Rate 18 16 Blood Pressure 164/78 H Blood Pressure Mean 106 Pulse Ox 99 18 Oxygen Delivery Method 02/21/21 06:00 02/21/21 07:24 Temperature Temperature Source Pulse Rate Respiratory Rate 16 16 Blood Pressure Blood Pressure Mean Pulse Ox Oxygen Delivery Method Room Air MDM <Dr. Suhail Elias DO - Last Filed: 02/21/21 02:33> MDM MDM Narrative Medical decision making narrative: CBC and comprehensive metabolic profile were essentially within normal limits. Serum alcohol level was elevated at 259. Urine tox screen was negative. Patient will be observed until he is clinically sober which will be at approximately 0250 hours. At that time, crisis will evaluate the patient. Care of the patient was turned over to the oncoming physician pending crisis evaluation. Lab Data Attestation: I reviewed the patient's lab results. Labs: Laboratory Results - last 24 hr 02/20/21 02/20/21 02/20/21 19:50 19:50 19:50 WBC 7.1 RBC 4.57 L Hgb 14.0 Hct 43.0 MCV 94.1 H MCH 30.6 MCHC 32.6 RDW Std Deviation 46.6 H RDW Coeff of Anastacio 13.5 Plt Count 274 MPV 9.1 Immature Gran % (Auto) 0.900 Neut % (Auto) 59.7 Lymph % (Auto) 27.2 [place] % (Auto) 9.2 Eos % (Auto) 2.4 Baso % (Auto) 0.6 Absolute Neuts (auto) 4.2 Absolute Lymphs (auto) 1.92 Nucleated RBC % 0 Sodium 138 Potassium 3.7 Chloride 107 Carbon Dioxide 23.0 Anion Gap 8 BUN 16 Creatinine 1.11 Estim Creat Clear Calc 89.51 Est GFR (MDRD) Af Amer 93 Est GFR (MDRD) Non-Af 77 BUN/Creatinine Ratio 14.4 Glucose 115 H Calcium 8.6 Total Bilirubin 0.50 AST 24 ALT 50 Alkaline Phosphatase 75 Total Protein 8.2 Albumin 4.3 Globulin 3.9 Albumin/Globulin Ratio 1.1 Urine Opiates Screen Urine Methadone Screen Ur Barbiturates Screen Ur Phencyclidine Scrn Ur Amphetamines Screen U Methamphetamin-MDMA U Benzodiazepines Scrn Urine Cocaine Screen U Cannabinoids Screen Ur Drug Screen Comment Ethyl Alcohol 259.0 02/20/21 02/21/21 19:55 03:27 WBC RBC Hgb Hct MCV MCH MCHC RDW Std Deviation RDW Coeff of Anastacio Plt Count MPV Immature Gran % (Auto) Neut % (Auto) Lymph % (Auto) [place] % (Auto) Eos % (Auto) Baso % (Auto) Absolute Neuts (auto) Absolute Lymphs (auto) Nucleated RBC % Sodium Potassium Chloride Carbon Dioxide Anion Gap BUN Creatinine Estim Creat Clear Calc Est GFR (MDRD) Af Amer Est GFR (MDRD) Non-Af BUN/Creatinine Ratio Glucose Calcium Total Bilirubin AST ALT Alkaline Phosphatase Total Protein Albumin Globulin Albumin/Globulin Ratio Urine Opiates Screen NEGATIVE Urine Methadone Screen NEGATIVE Ur Barbiturates Screen NEGATIVE Ur Phencyclidine Scrn NEGATIVE Ur Amphetamines Screen NEGATIVE U Methamphetamin-MDMA NEGATIVE U Benzodiazepines Scrn NEGATIVE Urine Cocaine Screen NEGATIVE U Cannabinoids Screen NEGATIVE Ur Drug Screen Comment Ethyl Alcohol 122.0 <Dr. Isma Loving MD - Last Filed: 02/21/21 08:07> [facility] Lab Data Labs: Laboratory Results - last 24 hr 02/20/21 02/20/21 02/20/21 19:50 19:50 19:50 WBC 7.1 RBC 4.57 L Hgb 14.0 Hct 43.0 MCV 94.1 H MCH 30.6 MCHC 32.6 RDW Std Deviation 46.6 H RDW Coeff of Anastacio 13.5 Plt Count 274 MPV 9.1 Immature Gran % (Auto) 0.900 Neut % (Auto) 59.7 Lymph % (Auto) 27.2 [place] % (Auto) 9.2 Eos % (Auto) 2.4 Baso % (Auto) 0.6 Absolute Neuts (auto) 4.2 Absolute Lymphs (auto) 1.92 Nucleated RBC % 0 Sodium 138 Potassium 3.7 Chloride 107 Carbon Dioxide 23.0 Anion Gap 8 BUN 16 Creatinine 1.11 Estim Creat Clear Calc 89.51 Est GFR (MDRD) Af Amer 93 Est GFR (MDRD) Non-Af 77 BUN/Creatinine Ratio 14.4 Glucose 115 H Calcium 8.6 Total Bilirubin 0.50 AST 24 ALT 50 Alkaline Phosphatase 75 Total Protein 8.2 Albumin 4.3 Globulin 3.9 Albumin/Globulin Ratio 1.1 Urine Opiates Screen Urine Methadone Screen Ur Barbiturates Screen Ur Phencyclidine Scrn Ur Amphetamines Screen U Methamphetamin-MDMA U Benzodiazepines Scrn Urine Cocaine Screen U Cannabinoids Screen Ur Drug Screen Comment Ethyl Alcohol 259.0 02/20/21 02/21/21 19:55 03:27 WBC RBC Hgb Hct MCV MCH MCHC RDW Std Deviation RDW Coeff of Anastacio Plt Count MPV Immature Gran % (Auto) Neut % (Auto) Lymph % (Auto) [place] % (Auto) Eos % (Auto) Baso % (Auto) Absolute Neuts (auto) Absolute Lymphs (auto) Nucleated RBC % Sodium Potassium Chloride Carbon Dioxide Anion Gap BUN Creatinine Estim Creat Clear Calc Est GFR (MDRD) Af Amer Est GFR (MDRD) Non-Af BUN/Creatinine Ratio Glucose Calcium Total Bilirubin AST ALT Alkaline Phosphatase Total Protein Albumin Globulin Albumin/Globulin Ratio Urine Opiates Screen NEGATIVE Urine Methadone Screen NEGATIVE Ur Barbiturates Screen NEGATIVE Ur Phencyclidine Scrn NEGATIVE Ur Amphetamines Screen NEGATIVE U Methamphetamin-MDMA NEGATIVE U Benzodiazepines Scrn NEGATIVE Urine Cocaine Screen NEGATIVE U Cannabinoids Screen NEGATIVE Ur Drug Screen Comment Ethyl Alcohol 122.0 Discharge Plan Triage Chief Complaint: Mental Health ED Provider: Isma Loving Dx/Rx/DC Orders Clinical Impression: Alcohol intoxication, Homicidal ideation Prescriptions: No Action levothyroxine 112 MCG tablet 125 mcg PO DAILY RF: 0 buspirone 30 MG tablet 15 mg PO BID RF: 0 trazodone 50 MG tablet 50 mg PO QHS PRN (Reason: Insomnia) RF: 0 atorvastatin 20 MG tablet 20 mg PO QHS RF: 0 lithium carbonate 450 MG tablet extended release 450 mg PO BID RF: 0 benztropine 2 MG tablet 1 mg PO BID RF: 0 colchicine 0.6 MG capsule 0.6 mg PO DAILY RF: 0 Clonazepam 0.5 MG tablet 0.5 mg PO TID RF: 0 olanzapine 2.5 MG tablet 10 mg PO DAILY RF: 0 Primary Care Provider: Tristan Perdomo Referrals: Tristan Perdomo MD [Primary Care Provider] -
--- NOTE | 2021-02-21 11:02 | CM.ED ---
SOCIAL WORK Call to Crisis, spoke with Sigrid. Nikole was in and completed assessment with patient. Plan is for placement to inpatient psych. Crisis to call with any updates. Selina Avery, SUPERVISOR NUCLEAR MEDICINE, SUPPORT ASSOCIATE
--- NOTE | 2021-02-21 11:36 | ED.RN ---
HENRIETTA FROM CRISIS CALLED STATING CHART WAS FAXED TO [facility].
--- NOTE | 2021-02-21 12:21 | CM.ED ---
SOCIAL WORK Call from Crisis, patient accepted to [facility]. Selina Avery, HAND LEATHER TRIMMER, CHILLER OPERATOR
== END 2021-02-21 13:24 ==
PROVIDERS: Emergency Medicine; Emergency Provider Emergency Medicine; PCP Family Medicine
DX: F10.129 Alcohol abuse with intoxication, unspecified (principal); Y90.8 Blood alcohol level of 240 mg/100 ml or more; R45.850 Homicidal ideations; R45.1 Restlessness and agitation; F17.200 Nicotine dependence, unspecified, uncomplicated; Z79.899 Other long term (current) drug therapy; E66.9 Obesity, unspecified
CPT/HCPCS: 80053; 80307; 82077; 85025; 99285

== ENCOUNTER → 2021-05-27 09:16 | Outpatient (CLI) | payer MEDICAID, SELFPAY ==
[2021-05-27 08:55] VITALS: BMI 40.4
[2021-05-27 12:23] LABS: Free T3 1.9 pg/mL (2.18-3.98); T4 Free Direct 0.92 ng/dL (0.76-1.46); Thyroid Stim Hormone (TSH) 2.56 uIU/mL (0.358-3.74)
== END ==
PROVIDERS: PCP Family Medicine; Referring Provider Internal Medicine Endocrinology, Diabetes & Metabolism; Visit Provider Internal Medicine Endocrinology, Diabetes & Metabolism
DX: E03.9 Hypothyroidism, unspecified (principal)
CPT/HCPCS: 36415; 84439; 84443; 84481

== ENCOUNTER 2022-02-20 15:18 | Emergency (ER) | payer MEDICAID, SELFPAY ==
[2022-02-20 15:21] VITALS: BP 156/111; PULSE 98; RESP 16; TEMP 36.6; O2SAT 96; BMI 31.5
--- NOTE | 2022-02-20 15:49 | EDS_ITS ---
HPI HPI - Psych History of Present Illness Chief Complaint: Mental Health Informant: patient Narrative Narrative: Patient states he was told he should come in to get his lithium level checked. Patient states that his mother was not doing well today. It sounds like she may have had breathing problems. He was nervous and he called EMS. He states before they arrived his mother was doing much better and not having any issues. However he was still very nervous. EMS talked to him. They recommend he come in to get his lithium level checked because it had not been checked in a while. This patient states he has bipolar. He has been on lithium as well as other medicines for a long time. He has been on lithium since a teenager. He has had episodes where he has been toxic but he does not feel that way now. He is not having any hallucinations. He is not suicidal or homicidal. His last visit to his counselor was in October and he has an appointment sometime in February but he is not sure the exact date. He feels fine. I also checked with our charge nurse. There are no pink slips or other reports on this patient of other issues going on. The story as above seems to be the complete story at this time. [facility] Medical History Arthritis Gout Headache Postablative hypothyroidism Home Medications trazodone 50 mg PO QHS PRN 05/19/20 [History Last Taken Unknown] lithium carbonate 450 mg PO BID 07/20/20 [History Last Taken Unknown] metoprolol succinate 100 mg tablet,extended release 24 hr 100 mg PO DAILY 03/31/21 [History Last Taken Unknown] olanzapine 15 mg tablet 15 mg PO DAILY 03/31/21 [History Last Taken Unknown] atorvastatin 20 mg tablet ea PO 05/27/21 [History Last Taken Unknown] benztropine 1 mg tablet ea PO 05/27/21 [History Last Taken Unknown] buspirone 30 mg tablet ea PO 05/27/21 [History Last Taken Unknown] metoprolol succinate 50 mg tablet,extended release 24 hr 50 mg PO tab 05/27/21 [History Last Taken Unknown] olanzapine 20 mg tablet 20 mg PO tab 05/27/21 [History Last Taken Unknown] levothyroxine 125 mcg tablet 125 mcg PO DAILY #90 tab 12/17/21 [Rx Last Taken Unknown] Allergy/AdvReac Type Severity Reaction Status Date / Time No Known Allergies Allergy Verified 02/20/22 15:20 Family History Other Alcoholism Anxiety Arthritis Depression Hyperlipidemia Hypertension Thyroid disorder Social History Smoking Status: Current some day smoker tobacco type: cigarettes alcohol intake: current alcohol intake frequency: a few times a week Alcohol type: beer substance use type: does not use ROS ROS ED Constitutional Constitutional ED: Denies fever(s) Eyes Eyes: Denies change in vision ENT ENT ED: Denies sore throat Cardiovascular Cardiovascular: Denies chest pain, palpitations or racing heartbeat Respiratory/Chest Respiratory/Chest: Denies dyspnea Gastrointestinal Gastrointestinal: Denies diarrhea, nausea or vomiting Genitourinary Genitourinary ED: Denies dysuria Musculoskeletal Musculoskeletal: Reports other Details: No muscle cramping or discomfort ; Denies arthralgias or myalgias Neurologic Neurologic: Denies paresthesias or weakness Psychiatric Psychiatric: Denies suicidal ideation or suicidal thoughts Endocrine Endocrinology: Denies polydipsia or polyuria Hematologic/Lymphatic Hematologic/Lymphatic: Denies easy bleeding or easy bruising EXAM Physical Exam Const Vital Signs: 02/20/22 15:21 02/20/22 17:27 Temperature 97.9 F Temperature Source Temporal Pulse Rate 98 Respiratory Rate 16 14 Blood Pressure 156/111 H Blood Pressure Mean 126 Pulse Ox 96 Oxygen Delivery Method Room Air Positive well nourished; Negative for unkempt General Appearance ED: NAD; Negative for unkempt HEENT Reports moist mucous membranes Eyes PERRL and EOMs intact bilaterally Neck supple Resp normal respiratory effort and clear to auscultation bilaterally Cardio Rate: regular rate Rhythm: regular rhythm Back/Spine no CVA tenderness Extremity normal to inspection General Extremety ED: Negative for tenderness Neuro oriented x3 Sensorium / Orientation: alert Psych mental status grossly normal Psych Narrative: Patient is sitting quietly in bed. He is pleasant. He makes good eye contact. He is cooperative. He does not have pressured speech. There is no flight of ideas. He is not suicidal. Appearance: Negative for unkempt Skin Rashes: no rashes MDM MDM MDM Narrative Medical decision making narrative: Patient has normal CBC. Electrolytes show that he is mildly dry. He admits that with the heat the last few days he really has not been drinking as much fluids. We encouraged him to increase this. His lithium is normal. Patient still feels good. There is no flight of ideas. He is got up and walked around the department to go the bathroom once. I have no reason to hold him or look further at this point. I have no reported indication that he is confused suicidal or otherwise. Lab Data Attestation: I reviewed the patient's lab results. Labs: Laboratory Results - last 24 hr 02/20/22 02/20/22 02/20/22 16:15 16:15 16:15 WBC 7.9 RBC 4.65 Hgb 14.0 Hct 41.8 MCV 89.9 MCH 30.1 MCHC 33.5 RDW Std Deviation 41.0 RDW Coeff of Anastacio 12.4 Plt Count 305 MPV 9.9 Immature Gran % (Auto) 0.500 Neut % (Auto) 73.4 H Lymph % (Auto) 17.1 L [place] % (Auto) 7.2 Eos % (Auto) 1.3 Baso % (Auto) 0.5 Absolute Neuts (auto) 5.8 Absolute Lymphs (auto) 1.35 Nucleated RBC % 0 Sodium 136 Potassium 3.3 L Chloride 103 Carbon Dioxide 23.0 Anion Gap 10 BUN 6 L Creatinine 1.41 H Estim Creat Clear Calc 69.75 Est GFR (MDRD) Af Amer 70 Est GFR (MDRD) Non-Af 58 L BUN/Creatinine Ratio 4.3 L Glucose 148 H Calcium 9.0 [place] 0.70 Discharge Plan Triage Chief Complaint: Mental Health ED Provider: Adrián Atwood Dx/Rx/DC Orders Clinical Impression: Bipolar disorder Instructions: ED Bipolar Disorder Prescriptions: No Action metoprolol succinate 100 mg tablet extended release 24 hr 100 mg PO DAILY RF: 0 olanzapine 15 mg tablet 15 mg PO DAILY RF: 0 atorvastatin 20 mg tablet PO RF: 0 buspirone 30 mg tablet PO RF: 0 benztropine 1 mg tablet PO RF: 0 olanzapine 20 mg tablet 20 mg PO RF: 0 metoprolol succinate 50 mg tablet extended release 24 hr 50 mg PO RF: 0 trazodone 50 MG tablet 50 mg PO QHS PRN (Reason: Insomnia) RF: 0 lithium carbonate 450 MG tablet extended release 450 mg PO BID RF: 0 levothyroxine 125 mcg tablet 125 mcg PO DAILY Qty: 90 RF: 1 Primary Care Provider: Tristan Perdomo Referrals: Tristan Perdomo MD [Primary Care Provider] - As Needed Activity Restrictions/Additional Instructions: Follow-up with your counseling center as scheduled this month. Disposition Disposition: Home, Self Care
[2022-02-20 16:30] LABS: Absolute Lymphocyte Count 1.35 X10^3/uL (0.83-4.51); Absolute Neutrophil Count 5.8 X10^3/uL (2.0-7.7); Basophil# 0.04 X10^3/uL; Basophil% 0.5 % (0-1); Eosinophils% 1.3 % (0-5); Hematocrit 41.8 % (40-54); Lymphocyte # 1.35 X10^3/ul (0.83-4.51); Lymphocyte % 17.1 % (19-41); Mean Corp Hgb Conc 33.5 g/dL (32-36); Mean Corpuscular Hgb 30.1 pg (27.0-32.0); Mean Corpuscular Volume 89.9 fL (80-94); Mean Platelet Vol. 9.9 fl (6.2-12.0); Monocyte# 0.57 X10^3/uL; Monocyte% 7.2 % (0-10); NRBC Flagged by Analyzer 0 % (0-5); Neutrophil % 73.4 % (47-70); Platelet Count 305 K/mm3 (150-450); RBC Distribution Width CV 12.4 % (11.6-14.6); Red Blood Count 4.65 M/mm3 (4.6-6.2); White Blood Count 7.9 K/mm3 (4.4-11.0)
[2022-02-20 16:46] LABS: Anion Gap 10 (5-15); BUN 6 mg/dL (7-18); BUN/Creat Ratio 4.3 RATIO (10-20); Chloride 103 mmol/L (98-107); Creatinine, Serum 1.41 mg/dL (0.70-1.30); EST Glomerular Filtration Rate 58 mL/min (>60); Est Glom Filt Rate - Afr Amer 70 mL/min (>60); Estimated Creatinine Clearance 69.75 ml/min; Glucose 148 mg/dL (74-106); Potassium 3.3 mmol/L (3.5-5.1); Sodium Level 136 mmol/L (136-145)
[2022-02-20 17:27] VITALS: RESP 14
[2022-02-20 18:26] VITALS: BP 128/74; PULSE 62; RESP 15; O2SAT 98
== END 2022-02-20 18:29 | disposition home or self-care (01) ==
PROVIDERS: Emergency Provider Emergency Medicine; PCP Family Medicine; Visit Provider Emergency Medicine
DX: F31.9 Bipolar disorder, unspecified (principal); M19.90 Unspecified osteoarthritis, unspecified site; E03.9 Hypothyroidism, unspecified; F17.210 Nicotine dependence, cigarettes, uncomplicated; Z79.890 Hormone replacement therapy; Z79.899 Other long term (current) drug therapy
CPT/HCPCS: 80048; 80178; 85025; 99285

== ENCOUNTER 2025-01-17 14:05 | Emergency (ER) | payer MEDICAID, SELFPAY ==
[2025-01-17 14:08] VITALS: BP 155/84; PULSE 88; RESP 18; TEMP 36.9; O2SAT 98; BMI 40.8
--- NOTE | 2025-01-17 14:26 | EX.ED.DYSGE1 ---
HPI History of Present Illness Chief Complaint: Diarrhea Informant: patient Narrative Narrative: Presents intermittent nonbloody diarrhea since May of last year, This would be 8 months now. Occasional vomiting last time a week ago. Occasional lower abdominal pain. No fever chills or sweats. Denies any abdominal surgeries. Denies any travel outside the country. Saw his primary care office months ago and was told to use Imodium. Has been using this for the last month. Wanted to do stools a day. Had 1 this morning. He is out of his Imodium. Denies current abdominal pain. History of bipolar and anxiety. Prior similar symptoms: No [facility] Medical History Postablative hypothyroidism Headache Gout Arthritis Home Medications ?Medication ?Instructions ?Recorded ?Last Taken ?Type trazodone 50 mg tablet 50 mg PO QHS PRN Insomnia 05/19/20 Unknown History lithium carbonate 450 mg 450 mg PO BID 07/20/20 Unknown History tablet,extended release metoprolol succinate 100 mg 100 mg PO DAILY 03/31/21 Unknown History tablet,extended release 24 hr olanzapine 15 mg tablet 15 mg PO DAILY 03/31/21 Unknown History atorvastatin 20 mg tablet 20 mg PO DAILY 05/27/21 Unknown History benztropine 1 mg tablet 1 mg PO BID 05/27/21 Unknown History buspirone 30 mg tablet 30 mg PO BID 05/27/21 Unknown History metoprolol succinate 50 mg 50 mg PO DAILY 05/27/21 Unknown History tablet,extended release 24 hr olanzapine 20 mg tablet 20 mg PO QHS 05/27/21 Unknown History levothyroxine 125 mcg tablet 125 mcg PO DAILY #60 tabs 03/02/22 Unknown Rx Allergy/AdvReac Type Severity Reaction Status Date / Time No Known Allergies Allergy Verified 01/17/25 14:07 Family History Other Alcoholism Anxiety Arthritis Depression Hyperlipidemia Hypertension Thyroid disorder Social History (Updated 01/17/25 @ 14:44 by Li Titsu) current occupational status: employed Smoking Status: Current some day smoker tobacco type: cigarettes alcohol intake: current alcohol intake frequency: a few times a week Alcohol type: beer substance use type: does not use ROS ROS ED Constitutional Constitutional ED: Denies chills, fever(s) or sweats ENT ENT ED: Denies sore throat Cardiovascular Cardiovascular: Denies chest pain, leg edema, palpitations or racing heartbeat Respiratory/Chest Respiratory/Chest: Denies cough, dyspnea or dyspnea on exertion Gastrointestinal Gastrointestinal: Reports diarrhea; Denies abdominal pain, nausea or vomiting Genitourinary Genitourinary ED: Denies dysuria, hematuria or urinary frequency Musculoskeletal Musculoskeletal: Denies back pain, extremity pain or neck pain Integumentary Denies rash or wounds Neurologic Neurologic: Denies headache(s), paresthesias or weakness EXAM Physical Exam Const Vital Signs: 01/17/25 14:08 01/17/25 16:07 Temperature 98.4 F Temperature Source Temporal Pulse Rate 88 75 Respiratory Rate 18 18 Blood Pressure 155/84 H 128/65 H Blood Pressure Mean 107 86 Pulse Ox 98 98 Oxygen Delivery Method Room Air Room Air Positive well nourished and well developed General Appearance ED: well developed and NAD HEENT Reports moist mucous membranes normocephalic and atraumatic Eyes General Eye ED: Yes normal appearance of both eyes Neck full ROM Chest Wall Chest: Negative for tenderness Resp normal respiratory effort and normal air movement Effort and Inspection: symmetric chest movement; Negative for respiratory distress Cardio regular rate, regular rhythm and no murmurs Peripheral Pulses: pulses 2+ throughout GI normal to inspection, nondistended, normoactive bowel sounds and non-tender GI Narrative: Negative Mijares's or McBurney's tenderness. No pain suprapubic or left lower quadrant. Palpation: Negative for guarding or rebound tenderness present Extremity normal to inspection General Extremety ED: Negative for edema or tenderness General Extremity: Negative for edema Neuro oriented x3 and no sensory deficits noted Sensorium / Orientation: awake and alert Skin no rashes or lesions noted and no wounds MDM MDM MDM Narrative Medical decision making narrative: Interventions / MDM: Differential diagnosis: Diarrhea Diagnosis considered but do not suspect: No clinical colitis, no clinical appendicitis, lithium toxicity however labs normal. My EKG interpretation: N/A Imaging independently reviewed and interpreted by myself: N/A External documents reviewed: N/A Test considered but not ordered:N/A ED course: On and off diarrhea for 8 months nontoxic nonsurgical abdomen. Will check basic labs will check lithium levels, stool studies ordered. Labs were normal. Patient tolerated p.o. intake. Patient unable to provide a stool sample. [place] level was checked which was normal. Encouraged continued p.o. fluids he is referred to GI for chronic symptoms. Re-evaluation: stable Disposition discussed with patient/family/significant other: Patient Case discussed with consulting clinician: N/A This note was generated with The Smartphone Physical dictation software. It may contain incorrect words, spelling, and punctuation that were not noted in checking the note before signing. Lab Data Attestation: I reviewed the patient's lab results. Labs: Laboratory Results - last 24 hr 01/17/25 14:40 WBC 8.1 RBC 4.65 Hgb 14.1 Hct 41.7 MCV 89.7 MCH 30.3 MCHC 33.8 RDW Std Deviation 44.2 H RDW Coeff of Anastacio 13.5 Plt Count 228 MPV 9.8 Immature Gran % (Auto) 0.200 Neut % (Auto) 75.1 H Lymph % (Auto) 16.5 L [place] % (Auto) 5.8 Eos % (Auto) 1.8 Baso % (Auto) 0.6 Absolute Neuts (auto) 6.1 Absolute Lymphs (auto) 1.34 Nucleated RBC % 0 Sodium 137 Potassium 3.9 Chloride 104 Carbon Dioxide 21.8 Anion Gap 12 BUN 11 Creatinine 1.13 Estim Creat Clear Calc 107.01 Est GFR (MDRD) Non-Af 81 BUN/Creatinine Ratio 9.7 L Glucose 164 H Calcium 9.4 [place] 0.63 Discharge Plan Triage Chief Complaint: Diarrhea ED Provider: Ever Myers Dx/Rx/DC Orders Clinical Impression: Diarrhea Instructions: ED Diarrhea, Unknown Cause Prescriptions: No Action metoprolol succinate 100 mg tablet extended release 24 hr 100 mg PO DAILY olanzapine 15 mg tablet 15 mg PO DAILY atorvastatin 20 mg tablet 20 mg PO DAILY Patient Comments: take 1 tablet by mouth at bedtime for CHOLESTEROL buspirone 30 mg tablet 30 mg PO BID Patient Comments: take 1 tablet by mouth twice a day benztropine 1 mg tablet 1 mg PO BID Patient Comments: take 1 tablet by mouth twice a day olanzapine 20 mg tablet 20 mg PO QHS Patient Comments: take 1 tablet by mouth at bedtime metoprolol succinate 50 mg tablet extended release 24 hr 50 mg PO DAILY trazodone 50 MG tablet 50 mg PO QHS PRN (Reason: Insomnia) lithium carbonate 450 MG tablet extended release 450 mg PO BID levothyroxine 125 mcg tablet 125 mcg PO DAILY Qty: 60 0RF Stand Alone Forms: ED Work / School Excuse Primary Care Provider: Tristan Perdomo Referrals: Alphonso Maravilla DO [Med Staff - Active Staff] - 1-2 Weeks Tristan Perdomo MD [Primary Care Provider] - Print Language: Haitian Disposition Disposition: Home, Self Care Discharge Date/Time: 01/17/25 17:34
[2025-01-17 14:49] LABS: Absolute Lymphocyte Count 1.34 X10^3/uL (0.83-4.51); Absolute Neutrophil Count 6.1 X10^3/uL (2.0-7.7); Basophil# 0.05 X10^3/uL; Basophil% 0.6 % (0-1); Eosinophil# 0.15 X10^3/uL; Eosinophils% 1.8 % (0-5); Hematocrit 41.7 % (40-54); Hemoglobin 14.1 g/dL (13.0-16.5); Lymphocyte # 1.34 X10^3/ul (0.83-4.51); Lymphocyte % 16.5 % (19-41); Mean Corp Hgb Conc 33.8 g/dL (32-36); Mean Corpuscular Hgb 30.3 pg (27.0-32.0); Mean Corpuscular Volume 89.7 fL (80-94); Mean Platelet Vol. 9.8 fl (6.2-12.0); Monocyte# 0.47 X10^3/uL; Monocyte% 5.8 % (0-10); NRBC Flagged by Analyzer 0 % (0-5); Neutrophil # 6.08 X10^3/uL (2.7-7.7); Neutrophil % 75.1 % (47-70); Platelet Count 228 K/mm3 (150-450); RBC Distribution Width CV 13.5 % (11.6-14.6); RBC Distribution Width SD 44.2 fl (35.1-43.9); Red Blood Count 4.65 M/mm3 (4.6-6.2); White Blood Count 8.1 K/mm3 (4.4-11.0)
[2025-01-17 15:21] LABS: Anion Gap 12 (5-15); BUN 11 mg/dL (4-19); BUN/Creat Ratio 9.7 RATIO (10-20); Calcium,Total 9.4 mg/dL (7.6-11.0); Carbon Dioxide 21.8 mmol/L (21.0-32.0); Chloride 104 mmol/L (98-108); Creatinine, Serum 1.13 mg/dL (0.70-1.20); EST Glomerular Filtration Rate 81 (>60); Estimated Creatinine Clearance 107.01 ml/min (50-250); Glucose 164 mg/dL (70-99); Potassium 3.9 mmol/L (3.3-5.1); Sodium Level 137 mmol/L (133-145)
[2025-01-17 15:38] LABS: Lithium 0.63 mmol/L (0.60-1.20)
[2025-01-17 16:07] VITALS: BP 128/65; PULSE 75; RESP 18; O2SAT 98
== END 2025-01-17 17:34 | disposition home or self-care (01) ==
PROVIDERS: Emergency Provider Emergency Medicine; PCP Family Medicine; Visit Provider Emergency Medicine
DX: R19.7 Diarrhea, unspecified (principal); F31.9 Bipolar disorder, unspecified; F41.9 Anxiety disorder, unspecified; E89.0 Postprocedural hypothyroidism; F17.210 Nicotine dependence, cigarettes, uncomplicated; Z79.890 Hormone replacement therapy; Z79.899 Other long term (current) drug therapy
CPT/HCPCS: 80048; 80178; 85025; 99283; A4216

== ENCOUNTER → 2025-01-30 | Outpatient (CLI) | payer MEDICAID, SELFPAY ==
[2025-01-30 12:43] LABS: Absolute Lymphocyte Count 0.98 X10^3/uL (0.83-4.51); Absolute Neutrophil Count 5.7 X10^3/uL (2.0-7.7); Basophil# 0.06 X10^3/uL; Basophil% 0.8 % (0-1); Eosinophil# 0.11 X10^3/uL; Eosinophils% 1.5 % (0-5); Hematocrit 44.2 % (40-54); Hemoglobin 14.6 g/dL (13.0-16.5); Lymphocyte # 0.98 X10^3/ul (0.83-4.51); Lymphocyte % 13.7 % (19-41); Mean Corpuscular Hgb 30.2 pg (27.0-32.0); Mean Corpuscular Volume 91.3 fL (80-94); Monocyte# 0.28 X10^3/uL; Monocyte% 3.9 % (0-10); NRBC Flagged by Analyzer 0 % (0-5); Neutrophil % 79.7 % (47-70); Platelet Count 214 K/mm3 (150-450); RBC Distribution Width CV 13.8 % (11.6-14.6); RBC Distribution Width SD 46.9 fl (35.1-43.9); Red Blood Count 4.84 M/mm3 (4.6-6.2); White Blood Count 7.2 K/mm3 (4.4-11.0)
[2025-01-30 13:26] LABS: Cholesterol 300 mg/dL (<=200); High Density Lipoprotein 73 mg/dL; Low Density Lipoprotein Calc. 197 mg/dL; Triglycerides 147 mg/dL; Very Low Density Lipoprotein 29 mg/dL (5-40); cholesterol:hdl ratio screen 4.09
[2025-01-30 13:36] LABS: ALB/GLOB Ratio 1.6 RATIO (0.9-2.4); AST(SGOT) 24 U/L (<=37); Alanine Aminotransfer ALT/SGPT 17 U/L (<=46); Albumin, Serum 4.8 g/dL (3.5-5.0); Alkaline Phosphatase 84 U/L (40-129); Anion Gap 15 (5-15); BUN 10 mg/dL (4-19); BUN/Creat Ratio 6.9 RATIO (10-20); Calcium,Total 9.9 mg/dL (7.6-11.0); Carbon Dioxide 20.6 mmol/L (21.0-32.0); Chloride 103 mmol/L (98-108); Creatinine, Serum 1.38 mg/dL (0.70-1.20); EST Glomerular Filtration Rate 64 (>60); Globulin 3.1 g/dL (2.2-4.2); Glucose 140 mg/dL (70-99); Potassium 3.8 mmol/L (3.3-5.1); Protein, Total 7.9 g/dL (5.9-8.4); Sodium Level 138 mmol/L (133-145); Total Bilirubin 0.43 mg/dL (0.00-1.30)
[2025-01-30 13:41] LABS: Hemoglobin A1c 6.7 % (<=5.6)
== END | disposition home or self-care (01) ==
LOC: VSLAB 09:57
DX: I10 Essential (primary) hypertension (principal); E89.0 Postprocedural hypothyroidism; R19.7 Diarrhea, unspecified
CPT/HCPCS: 36415; 80053; 80061; 83036; 84439; 84443; 85025

== ENCOUNTER 2025-02-12 19:52 | Outpatient (REF) | payer SELFPAY ==
[2025-02-12 19:52] VITALS: BP 165/104; PULSE 107; RESP 19; TEMP 36.8; O2SAT 100; BMI 41.0
[2025-02-12 20:52] VITALS: BP 172/89; PULSE 102; RESP 18; O2SAT 100
--- NOTE | 2025-02-12 20:59 | EDS_ITS ---
HPI HPI - Psych History of Present Illness Chief Complaint: Mental Health Informant: patient Onset/Context/Timing Onset: Today Context: Sudden Onset Current Severity: Mild Maximum Severity: Mild Narrative Narrative: 44-year-old male history of bipolar and Graves'. Reportedly went to visit his mom today at the [facility]. He was intoxicated. senior living called police. When police got there patient was found to have warrants for his arrest. So they arrested him to take him downtown to detention. While in the police car he became upset and violent. Hit his head inside the car against the back side window. Causing a laceration to his forehead. Told the police that he wanted to kill himself and he wanted to . Patient is unsure of his last tetanus. He is not very forthcoming with information. Police officers want medical clearance for detention and will get the psychiatric evaluation there. Prior similar symptoms: Yes Recent Illness/Hospitalization: No PFSH PFSH Medical History Postablative hypothyroidism Headache Gout Arthritis Home Medications ?Medication ?Instructions ?Recorded ?Last Taken ?Type trazodone 50 mg tablet 50 mg PO QHS PRN Insomnia Unknown History lithium carbonate 450 mg 450 mg PO BID 07/20/20 Unkno wn History tablet,extended release metoprolol succinate 100 mg 100 mg PO DAILY 03/31/21 U nknown History tablet,extended release 24 hr olanzapine 15 mg tablet 15 mg PO DAILY 03/31/21 Unkn own History benztropine 1 mg tablet 1 mg PO BID 05/27/21 Unknown History buspirone 30 mg tablet 30 mg PO BID 05/27/21 Unknow n History metoprolol succinate 50 mg 50 mg PO DAILY 05/27/21 Unk nown History tablet,extended release 24 hr olanzapine 20 mg tablet 20 mg PO QHS 05/27/21 Unknow n History levothyroxine 125 mcg tablet 125 mcg PO DAILY #60 tabs 03/02/22 Unknown Rx allopurinol 300 mg tablet 300 mg PO DAILY 02/12/25 Unk nown History dulaglutide 0.75 mg/0.5 mL mg subcut 02/12/25 Unknown History subcutaneous pen injector (Trulicity) rosuvastatin 10 mg tablet 10 mg PO QHS 02/12/25 Unknow n History Allergy/AdvReac Type Severity Reaction Status Date / Time No Known Allergies Allergy Verified 02/12/25 19:53 Family History Other Alcoholism Anxiety Arthritis Depression Hyperlipidemia Hypertension Thyroid disorder Social History current occupational status: employed Smoking Status: Current some day smoker tobacco type: cigarettes alcohol intake: current alcohol intake frequency: a few times a week Alcohol type: beer substance use type: does not use ROS ROS ED ROS Narrative Patient denies recent illness other than some diarrhea several days ago. Constitutional Constitutional ED: Denies chills or fever(s) Eyes Eyes: Denies blurry vision ENT ENT ED: Denies ear pain Cardiovascular Cardiovascular: Denies chest pain Respiratory/Chest Respiratory/Chest: Denies cough or dyspnea Gastrointestinal Gastrointestinal: Denies abdominal pain Genitourinary Genitourinary ED: Denies dysuria or hematuria Musculoskeletal Musculoskeletal: Denies arthralgias Integumentary Denies abscess Neurologic Neurologic: Denies headache(s) Psychiatric Psychiatric: Reports depression; Denies anxiety Endocrine Endocrinology: Denies polydipsia Hematologic/Lymphatic Hematologic/Lymphatic: Denies easy bleeding, easy bruising or lymphadenopathy Allergic/Immunologic Allergic/Immunologic ED: Denies mouth swelling, tongue swelling or urticaria EXAM Physical Exam Narrative Exam Narrative: 44-year-old male sitting upright in bed. Vital signs are stable afebrile. There is multiple officers outside the room. Patient sitting upright in bed with his hands handcuffed behind him. H EENT exam pupils round reactive light. He has a C-shaped laceration on his forehead which will need to be sewn. There is oozing of blood. Small hematoma. Scalp nontender no other signs of trauma. Opening closes mouth he can talk without difficulty. Neck is nontender. Trachea midline. Lungs clear to auscultation. Heart regular rhythm rate about 100 no murmur. Chest wall and ribs nontender. Abdomen soft nontender. Moving all 4 extremities. Normal dorsi plantarflexion. Normal dam operator strength. Back nontender. Neurologically is awake alert. He is answering questions following commands. Const Vital Signs: 02/12/25 19:52 02/12/25 20:52 02/12/25 21:00 Temperature 98.3 F Temperature Source Oral Pulse Rate 107 H 102 H 99 Respiratory Rate 19 H 18 26 H Blood Pressure 165/104 H 172/89 H 152/119 H Blood Pressure Mean 124 116 130 Pulse Ox 100 100 97 Oxygen Delivery Method Room Air Room Air Positive well nourished and well developed; Negative for cachectic, contractures or unkempt General Appearance ED: well developed and NAD; Negative for unkempt, cachectic, contractures or pallor Nutritional Appearance: Negative for cachectic HEENT Reports moist mucous membranes HEENT Narrative: Forehead laceration. Small bleeding. Small hematoma. normocephalic, trauma and tenderness Eyes PERRL and EOMs intact bilaterally Neck no lymphadenopathy, supple and no JVD General: Negative for tenderness Resp normal respiratory effort and clear to auscultation bilaterally Cardio S1 normal heart sound, S2 normal heart sound and no murmurs Rate: regular rate Rhythm: regular rhythm GI non-tender, non-distended and no masses Auscultation: normoactive bowel sounds Palpation: soft; Negative for tender or guarding Back/Spine no CVA tenderness General Back: Negative for CVA tenderness Cervical Spine: Negative for cervical spine tenderness Thoracic Spine / Upper Back: Negative for thoracic spinal tenderness Lumbar Spine / Lower Back: Negative for lumbar spinal tenderness Coccyx: Negative for other Extremity normal to inspection General Extremety ED: Negative for edema or tenderness General Extremity: Negative for edema Neuro oriented x3 and CN's II-XII intact bilaterally Shonda Coma Scale: document GCS findings Spontaneous Obeys Commands Oriented 15 Sensorium / Orientation: alert, oriented to person, oriented to place and oriented to time Psych mental status grossly normal, thought process normal, cooperative and speech normal Appearance: grossly normal; Negative for unkempt Attitude: calm, engaged and guarded Activity / Motor Behavior: appropriate eye contact Speech: normal speech Mood & Affect: depressed and anxious Thought Process: normal thought process Thought Content: normal thought content Memory / Cognition: memory grossly intact Insight: limited Judgement: limited Skin General Skin Exam: Negative for jaundice or pallor Lesions: no lesions Rashes: no rashes Trauma: laceration MDM MDM MDM Narrative Medical decision making narrative: History of [id number] male was arrested tonight on his way to detention hit his head against the inside window of the door. He has a for laceration need to be repaired. He is medically cleared to be taken in detention for housing and psychiatric evaluation. Screening labs to be obtained. Tetanus will be updated. For a laceration be repaired. Patient doing well repeat exam at 1020. I sutured his forehead laceration. Tolerated well. He was instructed on wound care and suture removal. He remains awake alert. He is answering questions. Following commands. Lab Data Attestation: I reviewed the patient's lab results. Lab results narrative: CBC shows a white count 8.2. H&H 14 and 43. Platelets 319. Electrolytes shows sodium 137. Gap 20. BUN is 7. Creatinine 1.4. Glucose 157 serum alcohol 98. Consistent with intoxication. Urine tox negative.. Labs: Laboratory Results - last 24 hr 02/12/25 02/12/25 21:28 21:32 WBC 8.2 RBC 4.96 Hgb 14.9 Hct 43.9 MCV 88.5 MCH 30.0 MCHC 33.9 RDW Std Deviation 45.1 H RDW Coeff of Anastacio 14.0 Plt Count 319 MPV 9.4 Immature Gran % (Auto) 0.500 Neut % (Auto) 69.8 Lymph % (Auto) 21.7 [place] % (Auto) 6.1 Eos % (Auto) 1.2 Baso % (Auto) 0.7 Absolute Neuts (auto) 5.7 Absolute Lymphs (auto) 1.78 Nucleated RBC % 0 Sodium 137 Potassium 3.7 Chloride 97 L Carbon Dioxide 19.4 L Anion Gap 20 H BUN 7 Creatinine 1.44 H Estim Creat Clear Calc 84.19 Est GFR (MDRD) Non-Af 61 BUN/Creatinine Ratio 5.1 L Glucose 157 H Calcium 9.7 Urine Opiates Screen NEGATIVE U Buprenorphine Qual NEGATIVE Ur Oxycodone Screen NEGATIVE Urine Methadone Screen NEGATIVE Urine Fentanyl Screen NEGATIVE Ur Barbiturates Screen NEGATIVE Ur Phencyclidine Scrn NEGATIVE Ur Amphetamines Screen NEGATIVE U Benzodiazepines Scrn NEGATIVE Urine Cocaine Screen NEGATIVE U Cannabinoids Screen NEGATIVE Ethyl Alcohol 98.4 H Procedures Lacerations Forehead laceration with repair:: Length: 2 in Depth: Sub Q Shape: Linear (Irregular.) Prep: Mahesh Laceration repair: Foreign material removed (Small piece of glass removed. Explored the wound did not see or feel any other glass. Irrigated the wound.), Irrigated, Lidocaine, Local, Skin sutures and Wound explored Number of Sutures/Ellery: 4 Suture Information: Ethilon, Simple and 4-0 Comment: Irregular linear forehead laceration. About 2 inches in length. Locally anesthetized with lidocaine. Washed with Shur-Clens and saline. Irrigated with saline. I did remove a small half-inch piece of glass. Then probed the wound explored and irrigated it more did not see or feel any other glass. Closed the wound using 4 brought up to 4 Ethilon sutures. Proper hemostasis wound closure was obtained. Patient tolerated procedure well. He was instructed on wound closure and suture removal. Discharge Plan Triage Chief Complaint: Mental Health ED Provider: Uche Cruz Dx/Rx/DC Orders Clinical Impression: Closed head injury, Depression, Forehead laceration, History of bipolar disorder, Acute alcohol intoxication Instructions: ED Bipolar Disorder, ED Depression, ED Alcohol Intoxication, ED Laceration, All Closures Prescriptions: No Action metoprolol succinate 100 mg tablet extended release 24 hr 100 mg PO DAILY olanzapine 15 mg tablet 15 mg PO DAILY buspirone 30 mg tablet 30 mg PO BID Patient Comments: take 1 tablet by mouth twice a day benztropine 1 mg tablet 1 mg PO BID Patient Comments: take 1 tablet by mouth twice a day olanzapine 20 mg tablet 20 mg PO QHS Patient Comments: take 1 tablet by mouth at bedtime metoprolol succinate 50 mg tablet extended release 24 hr 50 mg PO DAILY trazodone 50 MG tablet 50 mg PO QHS PRN (Reason: Insomnia) lithium carbonate 450 MG tablet extended release 450 mg PO BID allopurinol 300 mg tablet 300 mg PO DAILY Trulicity 0.75 mg/0.5 mL pen injector subcut rosuvastatin 10 mg tablet 10 mg PO QHS levothyroxine 125 mcg tablet 125 mcg PO DAILY Qty: 60 0RF Primary Care Provider: Care Physician,No Primary Referrals: Care Physician,No Primary [Primary Care Provider] - Activity Restrictions/Additional Instructions: Ice to your forehead to decrease pain and swelling. Tylenol for pain. Forehead stitches can be removed in 7 days. Clean daily with soap and water. Apply antibiotic ointment. Return if vomiting or not acting appropriately. Crisis evaluation for mental health clearance. Print Language: Austrian Disposition Disposition: Home, Self Care
[2025-02-12 21:00] VITALS: BP 152/119; PULSE 99; RESP 26; O2SAT 97
[2025-02-12] MEDS: Lidocaine 1% /Epi 1:100 (20ml) 20 ML Vial 10 ML INFILT (21:17)
[2025-02-12] MEDS: Diphth,Pertuss(Acell),Tet Vac 0.5 ML Vial IM (21:18)
[2025-02-12 21:35] LABS: Absolute Lymphocyte Count 1.78 X10^3/uL (0.83-4.51); Absolute Neutrophil Count 5.7 X10^3/uL (2.0-7.7); Basophil# 0.06 X10^3/uL; Basophil% 0.7 % (0-1); Eosinophils% 1.2 % (0-5); Hematocrit 43.9 % (40-54); Hemoglobin 14.9 g/dL (13.0-16.5); Lymphocyte # 1.78 X10^3/ul (0.83-4.51); Lymphocyte % 21.7 % (19-41); Mean Corp Hgb Conc 33.9 g/dL (32-36); Mean Corpuscular Volume 88.5 fL (80-94); Mean Platelet Vol. 9.4 fl (6.2-12.0); Monocyte% 6.1 % (0-10); NRBC Flagged by Analyzer 0 % (0-5); Neutrophil # 5.72 X10^3/uL (2.7-7.7); Neutrophil % 69.8 % (47-70); Platelet Count 319 K/mm3 (150-450); RBC Distribution Width SD 45.1 fl (35.1-43.9); Red Blood Count 4.96 M/mm3 (4.6-6.2); White Blood Count 8.2 K/mm3 (4.4-11.0)
[2025-02-12 21:59] LABS: Alcohol, Blood (Medical)-Serum 98.4 mg/dL (<=10.0); Anion Gap 20 (5-15); BUN 7 mg/dL (4-19); BUN/Creat Ratio 5.1 RATIO (10-20); Calcium,Total 9.7 mg/dL (7.6-11.0); Carbon Dioxide 19.4 mmol/L (21.0-32.0); Chloride 97 mmol/L (98-108); Creatinine, Serum 1.44 mg/dL (0.70-1.20); EST Glomerular Filtration Rate 61 (>60); Estimated Creatinine Clearance 84.19 ml/min (50-250); Glucose 157 mg/dL (70-99); Potassium 3.7 mmol/L (3.3-5.1); Sodium Level 137 mmol/L (133-145)
[2025-02-12 21:59] LABS: Amphetamine Urine NEGATIVE (<1000 ng/mL); Barbiturate Urine NEGATIVE (< 200 ng/mL); Benzodiazepine Urine NEGATIVE (< 200 ng/mL); Buprenorphine Urine NEGATIVE (< 200 ng/mL); Cocaine Urine NEGATIVE (< 300 ng/mL); Fentanyl, Urine NEGATIVE; Methadone Urine NEGATIVE (< 300 ng/mL); Opiates Urine NEGATIVE (< 300 ng/mL); Oxycodone, Urine NEGATIVE (< 100 ng/mL); PCP Urine NEGATIVE (< 25 ng/mL); THC Urine NEGATIVE (< 50 ng/mL)
[2025-02-12 22:24] VITALS: BP 138/82; PULSE 99; RESP 24; TEMP 36.2; O2SAT 95
--- NOTE | 2025-02-13 10:24 | CM.ED ---
Social work This SW received a call from Laura Linares at the [facility] who was seeking further information on this patient (ph: [phone]). Per Laura, there was some confusion as to whether this patient was pink slipped or not. Per doctor's note, this SW updated Laura and Laura had no further questions at this time. Alaina Tidwell, POST FORM REMOVER, BIOCHEMICAL DEVELOPMENT ENGINEER
== END 2025-02-12 22:29 | disposition home or self-care (01) ==
LOC: ED 19:52
PROVIDERS: Visit Provider Emergency Medicine
DX: S01.82XA Laceration with foreign body of other part of head, initial encounter (principal); F31.9 Bipolar disorder, unspecified; Z23 Encounter for immunization; W22.09XA Striking against other stationary object, initial encounter; Y92.810 Car as the place of occurrence of the external cause; F10.129 Alcohol abuse with intoxication, unspecified; Y90.4 Blood alcohol level of 80-99 mg/100 ml; E05.00 Thyrotoxicosis with diffuse goiter without thyrotoxic crisis or storm; Z79.890 Hormone replacement therapy; Z79.899 Other long term (current) drug therapy; F17.210 Nicotine dependence, cigarettes, uncomplicated
CPT/HCPCS: 12011; 80048; 80307; 82077; 85025; 90471; 90715

== ENCOUNTER 2025-02-28 12:41 | Emergency (ER) | payer MEDICAID, SELFPAY ==
[2025-02-28 12:41] VITALS: BP 136/93; PULSE 91; RESP 18; TEMP 36.6; O2SAT 99; BMI 39.5
[2025-02-28 13:17] LABS: Absolute Lymphocyte Count 1.09 X10^3/uL (0.83-4.51); Absolute Neutrophil Count 10.2 X10^3/uL (2.0-7.7); Basophil# 0.06 X10^3/uL; Basophil% 0.5 % (0-1); Eosinophil# 0.13 X10^3/uL; Eosinophils% 1.1 % (0-5); Hematocrit 42.3 % (40-54); Hemoglobin 14.1 g/dL (13.0-16.5); Lymphocyte # 1.09 X10^3/ul (0.83-4.51); Mean Corp Hgb Conc 33.3 g/dL (32-36); Mean Corpuscular Hgb 30.3 pg (27.0-32.0); Mean Platelet Vol. 10.4 fl (6.2-12.0); Monocyte# 0.56 X10^3/uL; Monocyte% 4.6 % (0-10); NRBC Flagged by Analyzer 0 % (0-5); Neutrophil # 10.24 X10^3/uL (2.7-7.7); Neutrophil % 84.4 % (47-70); Platelet Count 238 K/mm3 (150-450); RBC Distribution Width CV 13.3 % (11.6-14.6); RBC Distribution Width SD 44.4 fl (35.1-43.9); Red Blood Count 4.65 M/mm3 (4.6-6.2); White Blood Count 12.1 K/mm3 (4.4-11.0)
[2025-02-28 13:49] LABS: Anion Gap 16 (5-15); BUN 15 mg/dL (4-19); Calcium,Total 9.9 mg/dL (7.6-11.0); Carbon Dioxide 20.4 mmol/L (21.0-32.0); Chloride 103 mmol/L (98-108); Creatinine, Serum 1.14 mg/dL (0.70-1.20); EST Glomerular Filtration Rate 80 (>60); Estimated Creatinine Clearance 104.27 ml/min (50-250); Glucose 188 mg/dL (70-99); Potassium 4.1 mmol/L (3.3-5.1); Sodium Level 139 mmol/L (133-145)
[2025-02-28 13:50] LABS: Alcohol, Blood (Medical)-Serum < 10.1 mg/dL (<=10.0)
--- NOTE | 2025-02-28 14:32 | EX.ED.VIS.PS ---
HPI HPI - Psych History of Present Illness Chief Complaint: Suicidal Narrative Narrative: 44-year-old male past medical history of depression, on medication, presents after being released from the [facility] long-term under pink slip filled out by crisis counselor. He relates history that he is feeling more suicidal and has been depressed although they have been giving his medications in the long-term. States he takes lithium and other medications. While he does not have a plan for suicide, he has overwhelming feelings of helplessness and depression. He said decreased appetite, but states he has been unable to sleep in the long-term. He was originally incarcerated on the fifth of the month, approximately 2-1/2 weeks ago. He was released today, and even after evaluation by the crisis counselor, it was felt that he needs placement for stabilization. [facility] Medical History Postablative hypothyroidism Headache Gout Arthritis Home Medications ?Medication ?Instructions ?Recorded ?Last Taken ?Type trazodone 50 mg tablet 50 mg PO QHS PRN Insomnia 05/19/20 Unknown History lithium carbonate 450 mg 450 mg PO BID 07/20/20 Unknown History tablet,extended release metoprolol succinate 100 mg 100 mg PO DAILY 03/31/21 Unknown History tablet,extended release 24 hr olanzapine 15 mg tablet 15 mg PO DAILY 03/31/21 Unknown History benztropine 1 mg tablet 1 mg PO BID 05/27/21 Unknown History buspirone 30 mg tablet 30 mg PO BID 05/27/21 Unknown History metoprolol succinate 50 mg 50 mg PO DAILY 05/27/21 Unknown History tablet,extended release 24 hr olanzapine 20 mg tablet 20 mg PO QHS 05/27/21 Unknown History allopurinol 300 mg tablet 300 mg PO DAILY 02/12/25 Unknown History dulaglutide 0.75 mg/0.5 mL mg subcut 02/12/25 Unknown History subcutaneous pen injector (Trulicity) rosuvastatin 10 mg tablet 10 mg PO QHS 02/12/25 Unknown History Allergy/AdvReac Type Severity Reaction Status Date / Time No Known Allergies Allergy Verified 02/12/25 19:53 Family History Other Alcoholism Anxiety Arthritis Depression Hyperlipidemia Hypertension Thyroid disorder Social History current occupational status: employed Smoking Status: Current some day smoker tobacco type: cigarettes alcohol intake: current alcohol intake frequency: a few times a week Alcohol type: beer substance use type: does not use ROS ROS ED ROS Narrative Review of systems positive for increased depression and suicidal thoughts. Denies any physical symptoms. No chest pain or shortness of breath. Decreased appetite. Mild insomnia. No plan on how he would commit suicide. EXAM Physical Exam Narrative Exam Narrative: Afebrile. Vital signs noted. Nontoxic-appearing. Cardiovascular examination reveals a regular rate and rhythm. Lungs are clear to auscultation bilaterally. The abdomen is soft, nontender, without guarding or rebound. Positive bowel sounds. Neurological examination nonfocal nonlateralizing. Psychiatric examination reveals continued thoughts of suicide without plan. Mildly flat affect. No internal stimulation or active hallucinations. Const Vital Signs: 02/28/25 12:41 Temperature 97.9 F Temperature Source Temporal Pulse Rate 91 Respiratory Rate 18 Blood Pressure 136/93 H Blood Pressure Mean 107 Pulse Ox 99 Oxygen Delivery Method Room Air MDM MDM MDM Narrative Medical decision making narrative: Medical screening labs obtained per protocol. I do not feel differential diagnosis is applicable in this case and the fact that he has been pink slipped here by the crisis counselor, and was evaluated here again. I reviewed his medical screening labs and he has slight leukocytosis 12.1, hemoglobin 14.1, hematocrit 42.3, platelet count normal at 238. BMP shows normal sodium of 139 with potassium 4.1 and CO2 20.4, BUN of 15 and creatinine 1.14. Glucose elevated at 188. Ethyl alcohol negative at 10.1. I did add a lithium level. While it is currently pending, patient will be signed out to the oncoming physician Dr. Rapp to make final disposition which is recommended placement in a psychiatric facility. He is in stable condition and has been cooperative throughout my emergency department shift in his stay here. History & Record Review Discussion w/independent historian: Patient Lab Data Attestation: I reviewed the patient's lab results. Labs: Laboratory Results - last 24 hr 02/28/25 02/28/25 13:05 14:21 WBC 12.1 H RBC 4.65 Hgb 14.1 Hct 42.3 MCV 91.0 MCH 30.3 MCHC 33.3 RDW Std Deviation 44.4 H RDW Coeff of Anastacio 13.3 Plt Count 238 MPV 10.4 Immature Gran % (Auto) 0.400 Neut % (Auto) 84.4 H Lymph % (Auto) 9.0 L [place] % (Auto) 4.6 Eos % (Auto) 1.1 Baso % (Auto) 0.5 Absolute Neuts (auto) 10.2 H Absolute Lymphs (auto) 1.09 Nucleated RBC % 0 Sodium 139 Potassium 4.1 Chloride 103 Carbon Dioxide 20.4 L Anion Gap 16 H BUN 15 Creatinine 1.14 Estim Creat Clear Calc 104.27 Est GFR (MDRD) Non-Af 80 BUN/Creatinine Ratio 13.0 Glucose 188 H Calcium 9.9 Urine Opiates Screen NEGATIVE U Buprenorphine Qual NEGATIVE Ur Oxycodone Screen NEGATIVE Urine Methadone Screen NEGATIVE Urine Fentanyl Screen NEGATIVE Ur Barbiturates Screen NEGATIVE Ur Phencyclidine Scrn NEGATIVE Ur Amphetamines Screen NEGATIVE U Benzodiazepines Scrn NEGATIVE Urine Cocaine Screen NEGATIVE U Cannabinoids Screen NEGATIVE Ethyl Alcohol < 10.1 Management Discussion w/another healthcare provider: Behavioral health Discharge Plan Triage Chief Complaint: Suicidal ED Provider: Rolan Rossi Dx/Rx/DC Orders Prescriptions: No Action metoprolol succinate 100 mg tablet extended release 24 hr 100 mg PO DAILY olanzapine 15 mg tablet 15 mg PO DAILY buspirone 30 mg tablet 30 mg PO BID Patient Comments: take 1 tablet by mouth twice a day benztropine 1 mg tablet 1 mg PO BID Patient Comments: take 1 tablet by mouth twice a day olanzapine 20 mg tablet 20 mg PO QHS Patient Comments: take 1 tablet by mouth at bedtime metoprolol succinate 50 mg tablet extended release 24 hr 50 mg PO DAILY trazodone 50 MG tablet 50 mg PO QHS PRN (Reason: Insomnia) lithium carbonate 450 MG tablet extended release 450 mg PO BID allopurinol 300 mg tablet 300 mg PO DAILY Trulicity 0.75 mg/0.5 mL pen injector subcut rosuvastatin 10 mg tablet 10 mg PO QHS Primary Care Provider: Jaz Roman Referrals: Jaz Roman, DO [Primary Care Provider] - Print Language: Kinyarwanda
[2025-02-28 14:58] LABS: Amphetamine Urine NEGATIVE (<1000 ng/mL); Barbiturate Urine NEGATIVE (< 200 ng/mL); Benzodiazepine Urine NEGATIVE (< 200 ng/mL); Buprenorphine Urine NEGATIVE (< 200 ng/mL); Cocaine Urine NEGATIVE (< 300 ng/mL); Fentanyl, Urine NEGATIVE; Methadone Urine NEGATIVE (< 300 ng/mL); Opiates Urine NEGATIVE (< 300 ng/mL); Oxycodone, Urine NEGATIVE (< 100 ng/mL); PCP Urine NEGATIVE (< 25 ng/mL); THC Urine NEGATIVE (< 50 ng/mL)
[2025-02-28 16:29] LABS: Lithium 1.07 mmol/L (0.60-1.20)
--- NOTE | 2025-02-28 16:30 | CM.ED ---
Social Work SW spoke with Domonique who stated patient would be presenting to the ED due to suicidal ideations. Domonique stated that since [facility] would be following patient in the community, she would come do his assessment for placement. Nursing staff made aware. Irena Stephens, BR[employer] CREWMEMBER, BEATING MACHINE OPERATOR
[2025-02-28 20:32] VITALS: BP 133/83; PULSE 87; RESP 16; TEMP 37; O2SAT 95
== END 2025-02-28 20:40 ==
PROVIDERS: Emergency Provider Emergency Medicine; PCP Family Medicine; Visit Provider Emergency Medicine
DX: F32.A Depression, unspecified (principal); R45.851 Suicidal ideations; R73.9 Hyperglycemia, unspecified; M10.9 Gout, unspecified; F17.210 Nicotine dependence, cigarettes, uncomplicated; Z79.85 Long-term (current) use of injectable non-insulin antidiabetic drugs; Z79.899 Other long term (current) drug therapy
CPT/HCPCS: 80048; 80178; 80307; 82077; 85025; 99285

== ENCOUNTER 2025-03-11 01:28 | Emergency (ER) | payer MEDICAID, SELFPAY ==
[2025-03-11] VITALS (7 sets, daily range): BP systolic 110–153; BP diastolic 65–111; PULSE 68–95; RESP 16–18; TEMP 36.4–36.8; O2SAT 94–99; BMI 39.6
--- NOTE | 2025-03-11 01:43 | CT_ITS ---
PROCEDURE: BRAIN/HEAD WITHOUT CONTRAST 03/10/2025 REASON FOR EXAM: AMS TECHNIQUE: Head CT without intravenous contrast. Coronal and Sagittal reconstruction series were provided. One or more dose reduction techniques were used (e.g., Automated exposure control, adjustment of the mA and/or kV according to patient size, use of iterative reconstruction technique. RADIATION DOSE SUMMARY: CTDlvol: 44.99 mGy DLP: 829.85 mGycm COMPARISON: 08/16/2020 FINDINGS: The ventricles, cisterns and parenchyma are normal in appearance. There is no evidence mass effect, shift, hemorrhage, extra-axial collection or abnormal focal low or high density parenchymal lesion. The valle-white distinction is normal. There is a right orbital floor fracture, presumably old as there is no fluid level in the right maxillary sinus. The orbits and contents, sinuses, pituitary and midline structures, temporal bones and contents, mastoid air cells, craniocervical junction, skull and scalp are within normal limits. CT/Brain/Head without Contrast IMPRESSION: There is no definite evidence of acute intracranial process. Right orbital floor fracture is presumably old. Reading Location: [facility]
--- NOTE | 2025-03-11 01:54 | EX.ED.DYSGE1 ---
HPI History of Present Illness Chief Complaint: Alt LOC Narrative Narrative: Patient is a 44-year-old male past medical history of post ablative hypothyroidism, headache, arthritis, bipolar disorder, hyperlipidemia, seizures who presents to the emergency department chief complaint of altered mental status. Patient does not recall how he ended up [place] the other side of town he does not recall the events of this. According to PD he was found sleeping in the grass at [facility] and he states that is not remember anything after hanging out with his friends at [facility]. According PD he wanted to come to the hospital to be evaluated. They state that when they found him and noted that he was lying there with his eyes open with a blank stare but then got up and was in a linebacker stance they state that he has a history of violence and has several encounters with PD. [facility] Medical History Postablative hypothyroidism Headache Gout Arthritis Home Medications ?Medication ?Instructions ?Recorded ?Last Taken ?Type trazodone 50 mg tablet 50 mg PO QHS PRN Insomnia 05/19/20 Unknown History lithium carbonate 450 mg 450 mg PO BID 07/20/20 Unknown History tablet,extended release olanzapine 15 mg tablet 15 mg PO DAILY 03/31/21 Unknown History benztropine 1 mg tablet 1 mg PO BID 05/27/21 Unknown History buspirone 30 mg tablet 30 mg PO BID 05/27/21 Unknown History metoprolol succinate 50 mg 50 mg PO DAILY 05/27/21 Unknown History tablet,extended release 24 hr olanzapine 20 mg tablet 20 mg PO QHS 05/27/21 Unknown History allopurinol 300 mg tablet 300 mg PO DAILY 02/12/25 Unknown History dulaglutide 0.75 mg/0.5 mL 0.75 mg subcut QWEEK 02/12/25 Unknown History subcutaneous pen injector (Trulicity) rosuvastatin 10 mg tablet 10 mg PO QHS 02/12/25 Unknown History Allergy/AdvReac Type Severity Reaction Status Date / Time No Known Allergies Allergy Verified 03/11/25 01:34 Family History Other Alcoholism Anxiety Arthritis Depression Hyperlipidemia Hypertension Thyroid disorder Social History current occupational status: employed Smoking Status: Current some day smoker tobacco type: cigarettes alcohol intake: current alcohol intake frequency: a few times a week Alcohol type: beer substance use type: does not use ROS ROS ED ROS Narrative Constitutional: Denies headache, lightness, dizzy, fever, chills Eyes: Denies change in vision double vision blurry vision Cardiovascular: Denies chest pain or palpitations Respiratory: Denies coughing wheezing shortness of breath Abdomen: Denies abdominal pain nausea vomit diarrhea : Denies any urinary symptoms Neurological: Denies numbness, weakness, tingling Musculoskeletal: Denies back pain Skin: Denies rashes or lesions EXAM Physical Exam Narrative Exam Narrative: General: Patient lying in bed rest comfortably did not appear to be in acute distress Head: Atraumatic, normocephalic Eyes: PERRL bilaterally, EOMI bilateral, no conjunctival injection noted Neck: Soft, supple, trachea midline Cardiovascular: Regular rhythm no murmurs gallops rubs noted Respiratory: Clear to auscultation bilaterally Abdomen: Soft, nondistended, nontender to palpation Musculoskeletal: All bony prominences palpated joints taken to full range of motion no pain elicited Extremities: +5/5 strength noted in bilateral upper and lower extremities, radial pulses +2/4 in bilateral EXTR, no pedal edema on exam Neurological: Patient follow commands and that he was at [facility] year is 2024 that we are in spring Skin: Warm, dry, intact no rashes or lesions noted Const Vital Signs: 03/11/25 01:28 03/11/25 03:28 03/11/25 05:00 Temperature 97.5 F L Temperature Source Oral Pulse Rate 95 70 85 Respiratory Rate 18 16 16 Blood Pressure 151/101 H 117/84 H 110/70 Blood Pressure Mean 117 95 83 Pulse Ox 95 94 98 Oxygen Delivery Method Room Air Room Air 03/11/25 07:00 Temperature Temperature Source Pulse Rate 78 Respiratory Rate 16 Blood Pressure 153/111 H Blood Pressure Mean 125 Pulse Ox 98 Oxygen Delivery Method Room Air MDM MDM MDM Narrative Medical decision making narrative: Patient is a 44-year-old male who presented to the Emergency Department via PD with a chief complaint of altered mental status. On the differential diagnose includes but not limited to intracranial mass, intracranial hemorrhage, drug abuse, alcohol abuse, electrolyte abnormality. Once workup is obtained reviewed he will be reevaluated. Patient CBC reviewed and showed a white count of 16,000, which could be reactive hemoglobin was noted to be stable at 13.9, plate count of 265. Patient sodium was 132, potassium normal at 4.2, creatinine was 1.12. Patient AST and ALT were 29 and 18 respectively. Patient's TSH was 39.5 however this is chronically elevated according to previous blood draws Free T4 normal at 0.90 with a T3 of 1.7. Patient's drug screen was negative, lithium level 0.75. Patient CT head and brain without contrast showed no acute intracranial hemorrhage there is a right orbital floor fracture that is old. On reevaluation the patient patient appears to be responding to some internal stimuli and states that he does not have a ride will consult social work for potential placement for stabilization. Patient is not suicidal homicidal at this point in time therefore if he wants to leave on his own behalf he can do so while awaiting social work consult. Patient is medically cleared. Patient has been eating and drinking here in the emergency department resting comfortably cooperative. Lab Data Labs: Laboratory Results - last 24 hr 03/11/25 03/11/25 03/11/25 02:05 02:05 02:50 WBC Cancelled Corrected WBC Cancelled RBC Cancelled Hgb Cancelled Hct Cancelled MCV Cancelled MCH Cancelled MCHC Cancelled RDW Std Deviation Cancelled RDW Coeff of Anastacio Cancelled Plt Count Cancelled MPV Cancelled Immature Gran % (Auto) Cancelled Neut % (Auto) Cancelled Lymph % (Auto) Cancelled [place] % (Auto) Cancelled Eos % (Auto) Cancelled Baso % (Auto) Cancelled Absolute Neuts (auto) Cancelled Absolute Lymphs (auto) Cancelled Total Counted Cancelled Neutrophils % (Manual) Cancelled Band Neutrophils % Cancelled Lymphocytes % (Manual) Cancelled Monocytes % (Manual) Cancelled Eosinophils % (Manual) Cancelled Basophils % (Manual) Cancelled Metamyelocytes % Cancelled Myelocytes % Cancelled Promyelocytes % Cancelled Blast Cells % Cancelled Plasma Cell % (Manual) Cancelled Other Cells % Cancelled Nucleated RBC % Cancelled Nucleated RBCs/100 WBC Cancelled Differential Comment Cancelled Diff Path Review Cancelled Hypersegmented Neuts Cancelled Atypical Lymphocytes Cancelled Reactive Lymphocytes Cancelled Smudge Cells Cancelled Toxic Granulation Cancelled Toxic Vacuolation Cancelled Dohle Bodies Cancelled Reece Rods Cancelled Platelet Estimate Cancelled Plt Morphology Comment Cancelled RBC Morphology Cancelled Cancelled Polychromasia Cancelled Hypochromasia Cancelled Basophilic Stippling Cancelled Anisocytosis Cancelled Microcytosis Cancelled Macrocytosis Cancelled Spherocytes Cancelled Sickle Cells Cancelled Target Cells Cancelled Tear Drop Cells Cancelled Ovalocytes Cancelled Stomatocytes Cancelled [place] Bodies Cancelled [place] Cells Cancelled Bite Cells Cancelled Crenated Cell Cancelled Acanthocytes (Spur) Cancelled Rouleaux Cancelled Schistocytes Cancelled Sodium 134 Potassium 4.2 Chloride 98 Carbon Dioxide 17.8 L Anion Gap 18 H BUN 23 H Creatinine 1.12 Estim Creat Clear Calc 106.24 Est GFR (MDRD) Non-Af 82 BUN/Creatinine Ratio 20.6 H Glucose 142 H Calcium 9.7 Total Bilirubin 1.22 AST 29 ALT 18 Alkaline Phosphatase 99 Total Protein 7.9 Albumin 4.7 Globulin 3.2 Albumin/Globulin Ratio 1.5 TSH 39.500 H Free T4 0.90 Free T3 pg/dL 1.7 L Urine Opiates Screen NEGATIVE U Buprenorphine Qual NEGATIVE Ur Oxycodone Screen NEGATIVE Urine Methadone Screen NEGATIVE Urine Fentanyl Screen NEGATIVE Ur Barbiturates Screen NEGATIVE Ur Phencyclidine Scrn NEGATIVE Ur Amphetamines Screen NEGATIVE U Benzodiazepines Scrn NEGATIVE [place] 0.75 Urine Cocaine Screen NEGATIVE U Cannabinoids Screen NEGATIVE 03/11/25 03:13 WBC 16.5 H Corrected WBC RBC 4.49 L Hgb 13.9 Hct 40.2 MCV 89.5 MCH 31.0 MCHC 34.6 RDW Std Deviation 43.8 RDW Coeff of Anastacio 13.3 Plt Count 265 MPV 9.7 Immature Gran % (Auto) 0.400 Neut % (Auto) 83.5 H Lymph % (Auto) 7.8 L [place] % (Auto) 7.4 Eos % (Auto) 0.6 Baso % (Auto) 0.3 Absolute Neuts (auto) 13.8 H Absolute Lymphs (auto) 1.29 Total Counted Neutrophils % (Manual) Band Neutrophils % Lymphocytes % (Manual) Monocytes % (Manual) Eosinophils % (Manual) Basophils % (Manual) Metamyelocytes % Myelocytes % Promyelocytes % Blast Cells % Plasma Cell % (Manual) Other Cells % Nucleated RBC % 0 Nucleated RBCs/100 WBC Differential Comment Diff Path Review Hypersegmented Neuts Atypical Lymphocytes Reactive Lymphocytes Smudge Cells Toxic Granulation Toxic Vacuolation Dohle Bodies Reece Rods Platelet Estimate Plt Morphology Comment RBC Morphology Polychromasia Hypochromasia Basophilic Stippling Anisocytosis Microcytosis Macrocytosis Spherocytes Sickle Cells Target Cells Tear Drop Cells Ovalocytes Stomatocytes [place] Bodies [place] Cells Bite Cells Crenated Cell Acanthocytes (Spur) Rouleaux Schistocytes Sodium Potassium Chloride Carbon Dioxide Anion Gap BUN Creatinine Estim Creat Clear Calc Est GFR (MDRD) Non-Af BUN/Creatinine Ratio Glucose Calcium Total Bilirubin AST ALT Alkaline Phosphatase Total Protein Albumin Globulin Albumin/Globulin Ratio TSH Free T4 Free T3 pg/dL Urine Opiates Screen U Buprenorphine Qual Ur Oxycodone Screen Urine Methadone Screen Urine Fentanyl Screen Ur Barbiturates Screen Ur Phencyclidine Scrn Ur Amphetamines Screen U Benzodiazepines Scrn [place] Urine Cocaine Screen U Cannabinoids Screen Radiography Diagnostic Testing: Clinical Impression(s) from Imaging Studies Brain CT 03/11/25 01:43 IMPRESSION: There is no definite evidence of acute intracranial process. Right orbital floor fracture is presumably old. Reading Location: [facility] Discharge Plan Triage Chief Complaint: Alt LOC ED Provider: Devin Lazaro Dx/Rx/DC Orders Clinical Impression: Altered mental status, Depression, Bipolar disorder Prescriptions: No Action olanzapine 15 mg tablet 15 mg PO DAILY buspirone 30 mg tablet 30 mg PO BID Patient Comments: take 1 tablet by mouth twice a day benztropine 1 mg tablet 1 mg PO BID Patient Comments: take 1 tablet by mouth twice a day olanzapine 20 mg tablet 20 mg PO QHS Patient Comments: take 1 tablet by mouth at bedtime metoprolol succinate 50 mg tablet extended release 24 hr 50 mg PO DAILY trazodone 50 MG tablet 50 mg PO QHS PRN (Reason: Insomnia) lithium carbonate 450 MG tablet extended release 450 mg PO BID allopurinol 300 mg tablet 300 mg PO DAILY Trulicity 0.75 mg/0.5 mL pen injector 0.75 mg subcut QWEEK rosuvastatin 10 mg tablet 10 mg PO QHS Primary Care Provider: Jaz Roman Referrals: Jaz Roman, DO [Primary Care Provider] - Print Language: Eritrean
[2025-03-11 02:41] LABS: Lithium 0.75 mmol/L (0.60-1.20)
[2025-03-11 02:46] LABS: Free T3 1.7 pg/mL (2.18-3.98)
[2025-03-11 03:04] LABS: ALB/GLOB Ratio 1.5 RATIO (0.9-2.4); AST(SGOT) 29 U/L (<=37); Alanine Aminotransfer ALT/SGPT 18 U/L (<=46); Albumin, Serum 4.7 g/dL (3.5-5.0); Alkaline Phosphatase 99 U/L (40-129); Anion Gap 18 (5-15); BUN 23 mg/dL (4-19); BUN/Creat Ratio 20.6 RATIO (10-20); Calcium,Total 9.7 mg/dL (7.6-11.0); Carbon Dioxide 17.8 mmol/L (21.0-32.0); Chloride 98 mmol/L (98-108); Creatinine, Serum 1.12 mg/dL (0.70-1.20); EST Glomerular Filtration Rate 82 (>60); Estimated Creatinine Clearance 106.24 ml/min (50-250); Globulin 3.2 g/dL (2.2-4.2); Glucose 142 mg/dL (70-99); Potassium 4.2 mmol/L (3.3-5.1); Protein, Total 7.9 g/dL (5.9-8.4); Sodium Level 134 mmol/L (133-145); Total Bilirubin 1.22 mg/dL (0.00-1.30)
[2025-03-11 03:17] LABS: Absolute Lymphocyte Count 1.29 X10^3/uL (0.83-4.51); Absolute Neutrophil Count 13.8 X10^3/uL (2.0-7.7); Basophil# 0.05 X10^3/uL; Basophil% 0.3 % (0-1); Eosinophils% 0.6 % (0-5); Hematocrit 40.2 % (40-54); Hemoglobin 13.9 g/dL (13.0-16.5); Lymphocyte # 1.29 X10^3/ul (0.83-4.51); Lymphocyte % 7.8 % (19-41); Mean Corp Hgb Conc 34.6 g/dL (32-36); Mean Corpuscular Volume 89.5 fL (80-94); Mean Platelet Vol. 9.7 fl (6.2-12.0); Monocyte# 1.23 X10^3/uL; Monocyte% 7.4 % (0-10); NRBC Flagged by Analyzer 0 % (0-5); Neutrophil % 83.5 % (47-70); Platelet Count 265 K/mm3 (150-450); RBC Distribution Width CV 13.3 % (11.6-14.6); RBC Distribution Width SD 43.8 fl (35.1-43.9); Red Blood Count 4.49 M/mm3 (4.6-6.2); White Blood Count 16.5 K/mm3 (4.4-11.0)
[2025-03-11 03:53] LABS: Amphetamine Urine NEGATIVE (<1000 ng/mL); Barbiturate Urine NEGATIVE (< 200 ng/mL); Benzodiazepine Urine NEGATIVE (< 200 ng/mL); Buprenorphine Urine NEGATIVE (< 200 ng/mL); Cocaine Urine NEGATIVE (< 300 ng/mL); Fentanyl, Urine NEGATIVE; Methadone Urine NEGATIVE (< 300 ng/mL); Opiates Urine NEGATIVE (< 300 ng/mL); Oxycodone, Urine NEGATIVE (< 100 ng/mL); PCP Urine NEGATIVE (< 25 ng/mL); THC Urine NEGATIVE (< 50 ng/mL)
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
[2025-03-11] MEDS: Metoprolol(XL)Succ 50 MG Tablet PO (10:59)
[2025-03-11] MEDS: Allopurinol 300 MG Tablet PO (10:59)
[2025-03-11] MEDS: Lithium Carbonate 150 MG Capsule 450 MG PO (11:00)
[2025-03-11] MEDS: Benztropine 2 MG Tablet 1 MG PO (11:01)
[2025-03-11] MEDS: busPIRone 15 MG TABLET 30 MG PO (11:01)
[2025-03-11] MEDS: OLANZapine 10 MG Tablet 15 MG PO (11:01)
--- NOTE | 2025-03-11 16:00 | CM.ED ---
Social Work: line worker made phone contact with the following facilities to seek placement: [facility]: Spoke with Mahi: Full (14:51) [facility]: Spoke with Valeria; has an open bed; Field Application Engineer faxed over referral. (14:52) [facility] at the [place] location. Accepting doctor: Jean. NTN: [phone], option 3. Patient will be in room 116. (15:24) Field Application Engineer updated staff and patient. (15:32) line worker faxed over pink slip. Anju Humphrey, ESTEBAN, MANAGER SOURCING
== END 2025-03-11 17:21 ==
PROVIDERS: Emergency Provider Emergency Medicine; PCP Family Medicine; Visit Provider Emergency Medicine
DX: R41.82 Altered mental status, unspecified (principal); F31.9 Bipolar disorder, unspecified; E78.5 Hyperlipidemia, unspecified; E89.0 Postprocedural hypothyroidism; F17.210 Nicotine dependence, cigarettes, uncomplicated; Z79.85 Long-term (current) use of injectable non-insulin antidiabetic drugs; Z79.84 Long term (current) use of oral hypoglycemic drugs; Z79.899 Other long term (current) drug therapy
CPT/HCPCS: 36415; 70450; 80053; 80178; 80307; 84439; 84443; 84481; 85025; 99284

== ENCOUNTER 2025-04-17 15:51 | Emergency (ER) | payer MEDICAID, SELFPAY ==
[2025-04-17 15:51] VITALS: BP 141/90; PULSE 78; RESP 18; TEMP 36.8; O2SAT 98; BMI 38.5
--- NOTE | 2025-04-17 16:24 | EDS_ITS ---
HPI HPI - Psych History of Present Illness Chief Complaint: Suicidal Informant: patient Onset/Context/Timing Onset: Days Context: Gradual Onset Timing: Continuous Current Severity: Moderate Maximum Severity: Moderate Associated Symptoms Associated Symptoms - Psych: Positive for Depressed and Auditory Hallucinations Specific plan (suicidal thought): Run into traffic. No prior attempt. Narrative Narrative: 44-year-old male history of bipolar currently on medications he is a counseling center. Recent admission to a psychiatric facility states he stayed about 7-8 days. But now he is suicidal again. Said he is hearing voices to tell him to do it. Denies any prior attempt. Prior similar symptoms: Yes Recent Illness/Hospitalization: Yes [facility] Medical History Postablative hypothyroidism Headache Gout Arthritis Home Medications ?Medication ?Instructions ?Recorded ?Last Taken ?Type lithium carbonate 450 mg 450 mg PO BID 07/20/20 Unkno wn History tablet,extended release olanzapine 15 mg tablet 15 mg PO DAILY 03/31/21 Unkn own History benztropine 1 mg tablet 1 mg PO BID 05/27/21 Unknown History buspirone 30 mg tablet 30 mg PO BID 05/27/21 Unknow n History metoprolol succinate 50 mg 100 mg PO DAILY 05/27/21 Un known History tablet,extended release 24 hr olanzapine 20 mg tablet 20 mg PO QHS 05/27/21 Unknow n History allopurinol 300 mg tablet 300 mg PO DAILY 02/12/25 Unk nown History dulaglutide 0.75 mg/0.5 mL 0.75 mg subcut SA 02/12/25 Unknown History subcutaneous pen injector (Trulicity) rosuvastatin 10 mg tablet 10 mg PO QHS 02/12/25 Unknow n History cholecalciferol (vitamin D3) 25 50 mcg PO DAILY Unknown History mcg (1,000 unit) tablet (Vitamin D3) fluoxetine 20 mg capsule (Prozac) 20 mg PO DAILY depre ssive disorder 03/11/25 Unknown History haloperidol 10 mg tablet 10 mg PO BID 03/11/25 Unknow n History metformin 500 mg tablet 500 mg PO BID 03/11/25 Unkno wn History mirtazapine 15 mg tablet 15 mg PO QHS depressive diso rder 03/11/25 Unknown History trazodone 100 mg tablet 100 mg PO QHS PRN insomnia 0 03/11/25 Unknown History Allergy/AdvReac Type Severity Reaction Status Date / Time No Known Allergies Allergy Verified 04/17/25 15:53 Family History Other Alcoholism Anxiety Arthritis Depression Hyperlipidemia Hypertension Thyroid disorder Social History current occupational status: employed Smoking Status: Current some day smoker tobacco type: cigarettes alcohol intake: current alcohol intake frequency: a few times a week Alcohol type: beer substance use type: does not use ROS ROS ED ROS Narrative Denies recent illness. Constitutional Constitutional ED: Denies chills or fever(s) Eyes Eyes: Denies blurry vision ENT ENT ED: Denies ear pain Cardiovascular Cardiovascular: Denies chest pain Respiratory/Chest Respiratory/Chest: Denies cough Gastrointestinal Gastrointestinal: Reports diarrhea; Denies abdominal pain Genitourinary Genitourinary ED: Denies dysuria or hematuria Musculoskeletal Musculoskeletal: Denies arthralgias Integumentary Denies abscess Neurologic Neurologic: Denies headache(s) Psychiatric Psychiatric: Reports depression, suicidal ideation and suicidal thoughts; Denies anxiety Endocrine Endocrinology: Denies polydipsia Hematologic/Lymphatic Hematologic/Lymphatic: Denies easy bleeding, easy bruising or lymphadenopathy Allergic/Immunologic Allergic/Immunologic ED: Denies mouth swelling, tongue swelling or urticaria EXAM Physical Exam Narrative Exam Narrative: Well-appearing 44-year-old male. Vital signs stable afebrile. H EENT exam pupils round react light. Mytrex members. Large allen. Neck nontender no trauma. No lymphadenopathy. Lungs clear to auscultation bilaterally. Heart regular rhythm rate about 80 no murmur. Chest wall ribs nontender. Abdomen soft nontender. Back nontender. Moving all 4 extremities. Normal strength. Normal range of motion. No track jay. No lacerations. Neurologically is awake alert. Answer question following commands. Const Vital Signs: 04/17/25 15:51 Temperature 98.3 F Temperature Source Oral Pulse Rate 78 Respiratory Rate 18 Blood Pressure 141/90 H Blood Pressure Mean 107 Pulse Ox 98 Oxygen Delivery Method Room Air Positive well nourished and well developed; Negative for cachectic, contractures or unkempt General Appearance ED: well developed and NAD; Negative for unkempt, cachectic, contractures or pallor Nutritional Appearance: Negative for cachectic HEENT Reports moist mucous membranes normocephalic and atraumatic Eyes PERRL and EOMs intact bilaterally Neck no lymphadenopathy, supple and no JVD Resp normal respiratory effort and clear to auscultation bilaterally Cardio S1 normal heart sound, S2 normal heart sound and no murmurs Rate: regular rate Rhythm: regular rhythm GI non-tender, non-distended and no masses Palpation: soft; Negative for tender or guarding Back/Spine no CVA tenderness Extremity normal to inspection General Extremety ED: Negative for edema or tenderness General Extremity: Negative for edema Neuro oriented x3, CN's II-XII intact bilaterally and no sensory deficits noted Sensorium / Orientation: alert, oriented to person, oriented to place and oriented to time Motor Exam: strength 5/5 throughout Psych thought process normal, cooperative, speech normal, activity/motor behavior normal and denies homicidal ideation; Negative for denies hallucinations or denies suicidal ideation Appearance: appropriate and well kempt; Negative for unkempt Attitude: calm, engaged and No paranoid Activity / Motor Behavior: appropriate eye contact Speech: normal speech Mood & Affect: depressed Thought Process: normal thought process Thought Content: suicidality Attention / Concentration: attention grossly intact Memory / Cognition: memory grossly intact Insight: insight good Judgement: judgement good Skin General Skin Exam: Negative for jaundice or pallor Lesions: no lesions Rashes: no rashes Trauma: Negative for abrasion Wounds: Negative for amputation MDM MDM MDM Narrative Medical decision making narrative: 44-year-old male history of bipolar having altered iván hallucinations telling him to kill himself. He is thinking about running into traffic. Recent mental health hospitalization. He will go through ED mental health labs are administrator social welfare evaluate him to determine if we feel he needs placement or not. He said no prior attempt in the past. Patient was evaluated by the administrator social welfare. Per his request she is working on a mental health placement. History & Record Review Discussion w/independent historian: Patient Lab Data Attestation: I reviewed the patient's lab results. Lab results narrative: CBC showed a white count of 10. H&H 14 and 42. Platelets 323. Electrolytes show sodium 138. Gap 14. Normal BUN and creatinine. Glucose 101. Alcohol negative. Labs: Laboratory Results - last 24 hr 04/17/25 16:12 WBC 10.7 RBC 4.63 Hgb 14.3 Hct 42.4 MCV 91.6 MCH 30.9 MCHC 33.7 RDW Std Deviation 49.1 H RDW Coeff of Anastacio 14.7 H Plt Count 323 MPV 10.0 Immature Gran % (Auto) 0.700 Neut % (Auto) 69.4 Lymph % (Auto) 20.4 [place] % (Auto) 6.4 Eos % (Auto) 2.5 Baso % (Auto) 0.6 Absolute Neuts (auto) 7.5 Absolute Lymphs (auto) 2.19 Nucleated RBC % 0 Sodium 138 Potassium 4.5 Chloride 103 Carbon Dioxide 20.3 L Anion Gap 14 BUN 7 Creatinine 1.04 Estim Creat Clear Calc 112.60 Est GFR (MDRD) Non-Af 90 BUN/Creatinine Ratio 6.7 L Glucose 101 H Calcium 9.5 Ethyl Alcohol < 10.1 Discharge Plan Triage Chief Complaint: Suicidal ED Provider: Uche Cruz Dx/Rx/DC Orders Clinical Impression: Bipolar disorder, Depression with suicidal ideation Prescriptions: No Action olanzapine 15 mg tablet 15 mg PO DAILY buspirone 30 mg tablet 30 mg PO BID Patient Comments: take 1 tablet by mouth twice a day benztropine 1 mg tablet 1 mg PO BID Patient Comments: take 1 tablet by mouth twice a day olanzapine 20 mg tablet 20 mg PO QHS Patient Comments: take 1 tablet by mouth at bedtime metoprolol succinate 50 mg tablet extended release 24 hr 100 mg PO DAILY lithium carbonate 450 MG tablet extended release 450 mg PO BID allopurinol 300 mg tablet 300 mg PO DAILY Trulicity 0.75 mg/0.5 mL pen injector 0.75 mg subcut SA rosuvastatin 10 mg tablet 10 mg PO QHS fluoxetine [Prozac] 20 mg capsule 20 mg PO DAILY haloperidol 10 mg tablet 10 mg PO BID mirtazapine 15 mg tablet 15 mg PO QHS metformin 500 mg tablet 500 mg PO BID trazodone 100 mg tablet 100 mg PO QHS PRN (Reason: insomnia) cholecalciferol (vitamin D3) [Vitamin D3] 25 mcg (1,000 unit) tablet 50 mcg PO DAILY Primary Care Provider: Jaz Roman Referrals: Jaz Roman, DO [Primary Care Provider] - Print Language: Romanian Disposition Disposition: Psychiatric Hospital or Unit
--- NOTE | 2025-04-17 16:25 | ED.RN ---
Per Dr Cruz, no sitter is needed at this time.
[2025-04-17 16:39] LABS: Hematocrit 42.4 % (40-54); Hemoglobin 14.3 g/dL (13.0-16.5); Immature Granulocytes Count 0.070 X10^3/uL (0.0-0.0); Mean Corp Hgb Conc 33.7 g/dL (32-36); Mean Corpuscular Volume 91.6 fL (80-94); Mean Platelet Vol. 10.0 fl (6.2-12.0); NRBC Flagged by Analyzer 0 % (0-5); Platelet Count 323 K/mm3 (150-450); RBC Distribution Width CV 14.7 % (11.6-14.6); RBC Distribution Width SD 49.1 fl (35.1-43.9); Red Blood Count 4.63 M/mm3 (4.6-6.2); White Blood Count 10.7 K/mm3 (4.4-11.0)
[2025-04-17 17:24] LABS: Alcohol, Blood (Medical)-Serum < 10.1 mg/dL (<=10.0)
[2025-04-17 17:27] LABS: Anion Gap 14 (5-15); BUN 7 mg/dL (4-19); BUN/Creat Ratio 6.7 RATIO (10-20); Calcium,Total 9.5 mg/dL (7.6-11.0); Carbon Dioxide 20.3 mmol/L (21.0-32.0); Chloride 103 mmol/L (98-108); Estimated Creatinine Clearance 112.60 ml/min (50-250); Glucose 101 mg/dL (70-99); Potassium 4.5 mmol/L (3.3-5.1)
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
--- NOTE | 2025-04-17 19:03 | EKG12_ITS ---
Test Reason : MHC Blood Pressure : */* mmHG Vent. Rate : 68 BPM Atrial Rate : 68 BPM P-R Int : 190 ms QRS Dur : 90 ms QT Int : 432 ms P-R-T Axes : 21 31 37 degrees QTcB Int : 459 ms Normal sinus rhythm Normal ECG Confirmed by VALERIA LANDRUM, LUIS ([id number]), scientific editor GORDO VILCHIS ([id number]) on 04/19/2025 6:35:36 AM Referred By: Confirmed By: LUIS SHAW MD
[2025-04-17 19:30] VITALS: BP 120/83; PULSE 86; RESP 18; TEMP 36.8; O2SAT 98
[2025-04-17 19:50] LABS: Barbiturate Urine NEGATIVE (< 200 ng/mL); Benzodiazepine Urine NEGATIVE (< 200 ng/mL); PCP Urine NEGATIVE (< 25 ng/mL); THC Urine NEGATIVE (< 50 ng/mL)
[2025-04-17 20:00] VITALS: BP 131/71; PULSE 66; RESP 18; TEMP 36.8; O2SAT 96
--- NOTE | 2025-04-17 20:22 | CM.ED ---
Social Work SW contacted [facility] and confirmed open bed, referral sent. Intake from [facility] called and requested and EKG be completed, same done and faxed. Plan: Inpatient psychiatric hospitalization pending acceptance. Irena Stephens, YOUTH WORKER, DATA ACQUISITION TECHNICIAN
--- NOTE | 2025-04-17 20:32 | CM.ED ---
Social Work Patient was accepted to [facility]. Accepting is Dr. Beaver, will be going to [facility]. [id number] [phone]. Patient aware of accepting facility. No further needs at this time. Irena Stephens, SITE SUPERVISOR, SALES DEPARTMENT SUPERVISOR
--- NOTE | 2025-04-17 20:41 | PCA ---
PATIENT ACCEPTED AT [facility]. CALLED PHYSICIANS FOR A RIDE. THEY WILL BE HERE @ APPROXIMATELY [id number]
== END 2025-04-18 00:32 ==
PROVIDERS: Emergency Provider Emergency Medicine; PCP Family Medicine; Visit Provider Emergency Medicine
DX: F31.9 Bipolar disorder, unspecified (principal); R45.851 Suicidal ideations; E89.0 Postprocedural hypothyroidism; R44.0 Auditory hallucinations; M10.9 Gout, unspecified; M19.90 Unspecified osteoarthritis, unspecified site; F17.210 Nicotine dependence, cigarettes, uncomplicated; Z79.84 Long term (current) use of oral hypoglycemic drugs; Z79.85 Long-term (current) use of injectable non-insulin antidiabetic drugs; Z79.890 Hormone replacement therapy; Z79.899 Other long term (current) drug therapy
CPT/HCPCS: 80048; 80307; 82077; 85025; 93005; 99285